=== PATIENT | female | born 1955 | race Caucasian/White ===

== ENCOUNTER 2020-09-01 07:51 | Outpatient (CLI) | payer MEDICARE, SELFPAY ==
--- NOTE | 2020-09-01 07:58 | CT_ITS ---
WS: [id number] LDCT LUNG CANCER SCREENING TECHNIQUE: Noncontrast CT of the chest with coronal and sagittal reformatted images. CLINICAL INFORMATION: lung cancer screening COMPARISON: None. DLP: 59.33 mGy.cm DIvol: 1.[address] scans at [facility] use at least one of these dose optimization techniques: automat ed exposure control; mA and/or kV adjustment per patient size (includes targeted exams where dose is matched to clinical indication); or iterative reconstruction. FINDINGS: Advanced chronic emphysematous changes. Volume loss left lung with fibrotic changes. Fibrosis left majo ng apex. Fibrotic appearing spiculated opacity in the left upper lobe anteriorly measuring 1.9 x 1.2 cm. associated surrounding spiculation. This is indeterminant and recommend further evaluation with P ET/CT. Additional fibrotic-appearing spiculated subpleural opacity left upper lobe along the fissure posteri delon abutting the pleura measuring 1.4 x 1.2 CM. This also could be evaluated with PET/CT. Additional indeterminant small spiculated opacity right upper lobe measuring 5 mm. Traction bronchiectasis left upper and left lower lobes. Aortic calcification. No mediastinal or hilar lymphadenopathy. Mild thoracic kyphosis. CT/CT lung screening [id number] IMPRESSION: Recommend further evaluation with PET/CT LUNG-RADS: 4B-Suspicious FOLLOW UP: PET/CT recommended
== END 2020-09-01 07:52 | disposition home or self-care (01) ==
LOC: RT 07:58 → RAD 08:02
PROVIDERS: PCP Family Medicine; Visit Provider Internal Medicine Pulmonary Disease
DX: Z12.2 Encounter for screening for malignant neoplasm of respiratory organs (principal); F17.210 Nicotine dependence, cigarettes, uncomplicated; I70.0 Atherosclerosis of aorta
CPT/HCPCS: 71271

== ENCOUNTER 2020-09-10 08:35 | Outpatient (CLI) | payer MEDICARE, SELFPAY ==
--- NOTE | 2020-09-10 08:46 | XR_ITS ---
WS: [id number] Bone mineral density performed on a [employer], 09/10/2020 Clinical data: HX OF ADENOCARCINOMA, LUNG Findings: The first 4 lumbar vertebral bodies demonstrated the bone mineral density of 1.498 g/cm2 for a young adult T score of 2.7. Measurement of the left hip reveals a bone mineral density of 0.773 g/cm2 with a young adult T score of -1.9. Measurement of the right hip reveals the bone mineral density of 0.816 g/cm2 for young adult T score of -1.5. XR/XR DEXA axial skeleton* [id number] Impression: 1. The lumbar spine and the right hip show normal bone mineral density. 2. The left hip showed osteopenia.
== END 2020-09-10 08:36 | disposition home or self-care (01) ==
LOC: WPI 08:35
PROVIDERS: PCP Family Medicine; Visit Provider Family Medicine
DX: Z85.118 Personal history of other malignant neoplasm of bronchus and lung (principal); N18.30 Chronic kidney disease, stage 3 unspecified; J44.9 Chronic obstructive pulmonary disease, unspecified; M85.88 Other specified disorders of bone density and structure, other site
CPT/HCPCS: 77080

== ENCOUNTER → 2020-09-17 08:26 | Outpatient (BNVA) | payer MEDICARE, SELFPAY | PROVIDERS: PCP Family Medicine; Visit Provider Internal Medicine Pulmonary Disease | DX: Z01.812 Encounter for preprocedural laboratory examination (principal); Z20.822 Contact with and (suspected) exposure to COVID-19 | CPT/HCPCS: 87635 ==

== ENCOUNTER 2020-09-23 07:39 | Outpatient (CLI) | payer MEDICARE, SELFPAY ==
--- NOTE | 2020-09-23 07:30 | US_ITS ---
WS: [id number] ULTRASOUND-GUIDED RIGHT BREAST BIOPSY HISTORY: N63.0 - Unspecified lump in unspecified breast COMPARISON: 09/23/2020 mammogram and prior PET/CT 09/04/2020 Procedure, risks and complications are explained to the patient. Medications are reviewed. Consent is obtained. The mass in the RIGHT breast is localized with ultrasound. Mass is localized at 3:00, 2 cm from the n ipple. Skin is cleansed with ChloraPrep and anesthetized with 1% buffered lidocaine. Small dermatome is made. Under sterile conditions mass is biopsied with a 14-gauge Achieve needle. Multiple core biop sies are performed. Material placed in formalin and sent to pathology for review. No complications en countered. Breast tissue marker (Bard ultrasound enhanced ribbon): Single. Patient left the radiology suite with no complications. Patient is instructed to return to [facility] with any concerns. Note: Patient refused biopsy of RIGHT axillary lymph node at this time. The lymph nodes are positive on PET/CT. US/[place] [id number] IMPRESSION: 1. Uncomplicated core needle biopsy RIGHT breast mass at 3:00. PATHOLOGY: Invasive ductal carcinoma with lymphovascular invasion. RECOMMENDATION: Follow-up with surgery and oncology.
--- NOTE | 2020-09-23 07:46 | MM_ITS ---
WS: [id number] DIAGNOSTIC BILATERAL DIGITAL MAMMOGRAM WITH CAD HISTORY: RT BREAST MASS, PET/CT positive RIGHT breast mass. No prior mammograms available for review. COMPARISON: None available. TECHNIQUE: Bilateral craniocaudad, mediolateral oblique, and mediolateral views are submitted. Spot c ompression RIGHT CC. Computer aided detection utilized. Breast composition: There are scattered areas of fibroglandular density. Stick a high density mass me asuring 1.7 x 1.5 cm in the inferior medial RIGHT breast at a middle depth. There is also adjacent sk in thickening and volume loss in the RIGHT breast. Benign calcifications in the RIGHT breast. Single mildly prominent lymph node in the RIGHT axilla. MM/[place] [id number] IMPRESSION: BI-RADS: 5-Highly Suggestive of Malignancy FOLLOW UP: Biopsy Recommended Ultrasound-guided biopsy recommended. This biopsy will be performed today.
[2020-09-30 10:37] LABS: Miscellaneous Test See Scanned Lab Rpt
== END 2020-09-23 07:40 | disposition home or self-care (01) ==
LOC: RAD 07:42
PROVIDERS: PCP Family Medicine; Visit Provider Surgery
DX: N63.10 Unspecified lump in the right breast, unspecified quadrant (principal)
CPT/HCPCS: 19083; 77066; 88305; 88361; 88374

== ENCOUNTER 2020-09-28 13:29 | Outpatient (CLI) | payer MEDICARE, SELFPAY ==
--- NOTE | 2020-09-28 17:12 | ONC CON_ITS ---
Dr. Ness New Patient Note Patient: Chioma Willams Unit #: [id number]: 1955 Dicatated By: Ariana Ness M.D.Date of Visit: Sep 28, 2020 Onc MED New Patient/Consult Referring Physician: Dr. SHANIKA NICHOLSON M.D. History of Present Illness: Ms. Chioma Willams, is a 65-year-old female with a history of lung cancer, diagnosed in 2003, at that time she underwent resection as per patient she was not offered any further treatment as it was a early stage disease. Patient also has history of COPD and chronic smoking during her routine follow-up for lung cancer she underwent CT scan of the chest on September 01, 2020 which showed fibrotic appearing spiculated opacity in the left upper lobe anteriorly measuring 1.9 x 1.2 cm and additional fibrotic appearing spiculated subpleural opacity left upper lobe along the fissure posteriorly abutting pleura measuring 1.4 x 1.2 cm and additional indeterminant small spiculated opacity right upper lobe measuring 5 mm, for which CT PET scan was recommended which was done on September 04, 2020 which showed 1.6 cm solid linear nodule in the left upper lobe with SUV of 1.8, most suggestive of benign scarring. But there was incidental finding showing FDG uptake in the central right breast, there is a solid 1.4 x 1.0 cm parenchymal lesion with SUV of 15.9, has a high probability of breast primary. And multiple right axillary lymph nodes FDG positive with SUV up to 9.1 measuring up to 2.5 cm in length. Left breast and axilla unremarkable. Patient underwent mammogram on September 23, 2020 which showed a high density mass measuring 1.7 x 1.5 cm in the inferior medial right breast there is also adjacent skin thickening and volume loss in the right breast. Single mildly prominent lymph node in the right axilla., On September 23, 2020 she underwent ultrasound-guided right breast biopsy which confirmed invasive ductal carcinoma lymphovascular invasion seen, as per discussion with Dr. Nolasco pathologist her tumor is ER/GA negative and HER-2/bola 3+ positive by IHC, FISH is pending, Ki-67 90%. Patient is complaining of discomfort in the lateral areolar area and in the right axilla but denies any overlying skin changes denies any nipple discharge denies any trauma to her breast except recently underwent ultrasound-guided biopsy, denies any fever or chills, denies any signs symptom suggestive of infection. Patient said Tylenol alone is not helping her. Patient denies any new bony pains patient denies any headaches blurred vision double vision, denies any hemoptysis or hematemesis. Denies any chest pain, shortness of breath or palpitation, denies any history of chest pain or cardiac problem. Patient has history of COPD, and still smoking actively. Denies alcohol use. Past Medical History: Ms. Arandas medical history consists of chronic obstructive pulmonary disease and history of lung cancer in 2003. Past Surgical History: Ms. Arandas surgical/procedural history consists of appendectomy, covid vaccine #2 in 2020, covid vaccine #1 in 2020, hysterectomy/bilateral salpingectomy-oophorectomy in 1999, and cholecystectomy in 1977. Medications: Albuterol Sulfate 2 Puff(s) (of 108 (90 base) mcg/act) Aerosol Powder, Breath Activated Inhalation PRN Allergies: No Known Allergies. Social History: Ms. Willams is single. She is a daily smoker who has smoked 0.5 packs/day for 40 years. She drinks daily. She consumes 4 drinks/day 7 days/week. She has indicated exposure to the following products: cigarettes. Family History: Ms. Willams's mother at age 82: congestive heart failure, and BREAST CANCER, and COLON CANCER. Ms. Willams's father at age 71: lung cancer. Review Of Symptoms: Review of Systems is not available for this patient. Vital Signs: Performed on Sep 28, 2020 16:16: 0, 7, 22.71, 1.76 sq.m, 67 in, 97 %, 71 /min, 18 /min, 170/83 mm(hg) (HIGH), 97.2 F (LOW), and 145 lbs (HIGH). Performance Status: 0 - Fully active, able to carry on all predisease activities without restrictions. (ECOG) Physical Examination: ENMT - No mouth sores, no thrush, no jaundice, Right breast shows mild tenderness in retroareolar area but no overlying skin changes, no nipple discharge, palpable mildly tender right axillary lymph node, Respiratory - Poor air entry, mild wheezing bilaterally, Cardiovascular - Regular rate and rhythm of heart, Abdomen - Soft, bowel sounds present, Extremities - No visible edema. Lab/Imaging: Most recent lab results are not available for this patient. Impression: Invasive ductal carcinoma involving right breast per ultrasound guided biopsy done on September 23, 2020, as per pathology prelim report shows ER negative GA negative, HER-2/bola 3+ positive by IHC but FISH confirmation is pending, with very high Ki-67, at 90% CT PET scan done on September 04, 2020 showed 1.4 x 1.0 cm central right breast lesion with SUV of 15.9 and multiple right axillary lymph nodes positive with SUV of .9.1 measuring 2.5 cm in length., Clinical stage T1c, N2A (multiple lymph node fixed to each other), M0, grade 3, HER-2/bola 3+, positive by IHC, ER/GA negative clinical stage IIIa CT PET scan was done to confirm abnormal findings seen on CT scan of chest for follow-up for history of lung cancer which was diagnosed in 2013 at that time she underwent resection only no further treatment was offered because of her early stage disease. History of lung cancer, diagnosed in 2013, as per patient underwent resection no further treatment was offered COPD Chronic smoking Plan: Discussed with patient regarding her disease status and treatment options, as per discussion with pathologist Dr. Sibley, patient has ER negative GA negative disease and her HER-2/bola 3+ positive by IHC but FISH confirmation is pending. Patient has already seen surgeon Dr. Nicholson, patient was referred to oncology for evaluation for neoadjuvant therapy, as per pathology, patient has HER-2/bola positive disease and ER/GA negative diseaseAnd on physical exam palpable right axillary lymph nodes, ?matted to each other, so ,again if HER-2/bola status is confirmed by FISH, will consider neoadjuvant chemotherapy with Herceptin/Cytoxan/Taxotere/Perjeta on the other hand if HER-2/bola status is negative by FISH then Cytoxan/Taxotere or Adriamycin/Cytoxan followed by Taxol, again if echo shows ejection fraction in normal range At this point , we will proceed with echocardiogram, and also request Dr. Nicholson to place Port-A-Cath to facilitate chemotherapy and will obtain report from pathology regarding her HER-2/bola status especially FISH confirmation and patient will return to clinic after echocardiogram/Port-A-Cath placement for further discussion., With CBC and CMP Signed By: Ariana Ness M.D. <<Signature on File>>
== END 2020-09-28 13:30 | disposition home or self-care (01) ==
LOC: ONCMED 13:34
PROVIDERS: PCP Family Medicine; Visit Provider Internal Medicine Hematology & Oncology
DX: C50.811 Malignant neoplasm of overlapping sites of right female breast (principal); Z17.1 Estrogen receptor negative status [ER-]; C77.8 Secondary and unspecified malignant neoplasm of lymph nodes of multiple regions; J44.9 Chronic obstructive pulmonary disease, unspecified; F17.210 Nicotine dependence, cigarettes, uncomplicated; Z85.118 Personal history of other malignant neoplasm of bronchus and lung; Z79.899 Other long term (current) drug therapy; Z92.21 Personal history of antineoplastic chemotherapy
CPT/HCPCS: 99204

== ENCOUNTER → 2020-10-01 10:24 | Outpatient (BNVA) | payer MEDICARE, SELFPAY | PROVIDERS: PCP Family Medicine; Visit Provider Surgery | DX: Z01.812 Encounter for preprocedural laboratory examination (principal); Z20.822 Contact with and (suspected) exposure to COVID-19 | CPT/HCPCS: 87635 ==

== ENCOUNTER 2020-10-05 10:25 | Day surgery (SDC) | payer MEDICARE, SELFPAY ==
[2020-10-04 13:28] VITALS: BMI 22.7
--- NOTE | 2020-10-05 | SCC_ITS ---
Procedure Done: Placement of PowerPort in the left subclavian vein Fluoroscopic guidance and interpretation for placement of catheter 20.2 seconds of fluoroscopic guidance, for a cumulative dose of 3.56 mGy, was provided to Dr. Nicholson by the radiology department. C-arm images of the chest were saved for the patient's permanent record. [facility]
[2020-10-05 10:54] VITALS: BP 170/92; PULSE 80; RESP 18; TEMP 36.2; O2SAT 97
[2020-10-05] MEDS: sodium chloride 0.9% 1,000 ML 30 ML IV (11:10)
--- NOTE | 2020-10-05 11:21 | ANES.PREANE2 ---
Pre-Anesthetic Assessment Pre-Anesthetic Assessment: Height/Weight: Height 1.7 m Weight 65.771 kg Temp Pulse Resp BP Pulse Ox 97.2 F L 80 18 170/92 97 10/05/20 10:54 10/05/20 10:54 10/05/20 10:54 10/05/20 10:54 10/05/20 10:54 Preop Diagnosis: Right breast cancer Proposed Procedure: Operation Date: 10/05/20 12:00 Proposed Procedures p Portacath Placement 66648 C34.12(Not Applicable) - Ilir Nicholson MD Familial anesthetic complications: none Was Beta Maris taken within 24 hours: N/A Was Clonidine taken within 24 hours: N/A Last intake: Intake Last Liquid Date 10/04/20 Last Liquid Time 21:00 Last Solid Date 10/04/20 Last Solid Time 15:00 Social: Social History: Alcohol and Tobacco Comment: 3-4 beers daily Exam: Pre-Anes Outpt Exam: alert, oriented x 3, clear to auscultation bilaterally and regular rate & rhythm Airway: Cervical ROM: WNL MP: 3 Dentition: Full Pulmonary: Pulmonary: COPD Comments: lung cancer 2003 Anesthetic Plan: ASA status: 3 Anesthesia: MAC Risk of > 500 ml blood loss (7ml/kg in children): No Meds/Allergies Current Medications: Current Medications Generic Name Dose Route Start Last Admin Trade Name Freq PRN Reason Stop Dose Admin Sodium Chloride 1,000 mls @ 30 ml s/hr 10/05/20 11:00 10/05/20 11:10 Sodium Chloride 0.9% IV 10/06/20 10:59 30 mls/hr .Q24H MARY Administration PFSH Anesthesia PFSH: Medical History (Updated 09/28/20 @ 12:29 by Geovany Bartlett MD) Chronic obstructive pulmonary disease Lung cancer 2003 Surgical History History of appendectomy History of cholecystectomy History of total abdominal hysterectomy and bilateral salpingo-oophorectomy Family History Father Cancer lung Mother CHF (congestive heart failure) Social History Smoking and tobacco status: current every day smoker cigarettes Packs smoked per day: 0.5 Years cigarettes smoked: 40 [ Other cigarette details: [id number] ] Quit status (tobacco): considering quitting Second hand smoke exposure: No Smoking risk assessment/counseling performed?: Yes Alcohol intake: current Alcohol intake frequency: 3 or more drinks per day Lives independently: Yes Household members: none Marital status: Single service: No Current occupational status: retired Pets and animals: No History of recent travel: No Current gender identity: Female Data Anesthesia Cardiac Studies: No Data to Display
--- NOTE | 2020-10-05 12:06 | SC_ITS ---
WS: [id number] C-ARM RADIOGRAPHS CHEST; 2 IMAGES HISTORY: Intraoperative imaging. COMPARISON: None available. Intraoperative imaging during LEFT subclavian Mediport placement. SC/C-arm FL for CVA [id number] IMPRESSION: Intraoperative imaging during Mediport placement.
--- NOTE | 2020-10-05 12:20 | W.PM.OPSUD ---
Surgery/Procedure H&P Update DATE OF PROCEDURE: October 05, 2020 DATE H&P PERFORMED: 09/21/20 H&P UPDATE INFORMATION: I have reviewed H&P completed within last 30 days, I have examined patient prior to procedure and No changes to prior documentation PREOP DIAGNOSIS: Right breast cancer PLANNED PROCEDURE: Operation Date: 10/05/20 12:00 Proposed Procedures p Portacath Placement 59247 C34.12(Not Applicable) - Ilir Nicholson MD
[2020-10-05] MEDS: lidocaine 1% INJ 20 mL INJECTION (12:39)
[2020-10-05] MEDS: heparin, porcine 1,000 unit/mL INJ 10 mL 6000 UNIT INJECTION (12:58)
[2020-10-05 13:09] VITALS: BP 108/68; PULSE 81; RESP 20; TEMP 36.1; O2SAT 99
[2020-10-05 13:15] VITALS: BP 128/68; PULSE 70; RESP 16; O2SAT 98
[2020-10-05 13:20] VITALS: BP 138/72; PULSE 65; RESP 17; TEMP 36.4; O2SAT 97
--- NOTE | 2020-10-05 14:13 | ANE.PACU2 ---
Inpatient post-anesthesia follow up: Airway intact: Yes Vital signs: Temperature 97.6 F Pulse Rate 65 Respiratory Rate 17 Blood Pressure 138/72 Pulse Oximetry 97 Oxygen Delivery Me thod Room Air Oxygen Flow Rate Fraction of Inspir ed Oxygen Hydration adequate: Yes Nausea and vomiting: No Pain level: 2 Mental status: Baseline
--- NOTE | 2020-10-06 09:45 | PM.OP ---
Operative Report Date of procedure: October 05, 2020 Pre-op Diagnosis: Right breast cancer Post-op diagnosis: same Procedure Done: Placement of PowerPort in the left subclavian vein Fluoroscopic guidance and interpretation for placement of catheter Pathology: none sent Surgeon: Ilir Nicholson Anesthesia: General Condition: stable Disposition: PACU Procedure: The patient was taken to the Operating Room and the chest and neck bilaterally were prepped and draped in a sterile manner after the antibiotic had been administered and shoulder rolls had been placed. A total of 10 mL of 1% lidocaine with 0.5% Marcaine was infiltrated under the clavicle on the left side at the site of the planned entry into the subclavian vein. An introducer needle was then used to access the subclavian vein under the clavicle and after withdrawing blood syringe was removed and a guidewire passed under fluoroscopy into the superior vena cava. The site of the planned port was then marked on the chest and a 15 blade was used to make a 3 cm skin incision this was extended into the subcutaneous tissue using electrocautery and a subcutaneous pocket over the pectoralis fascia was created 2-0 Vicryl suture was used to suture the port to the pectoral fascia in the pocket on 3 sides. The catheter, after having been flushed with hep saline, was attached to the tunneler and a tunnel created between the port site and the subclavian vein entry site. Under fluoroscopy the dilator sheath was passed over the guidewire into the proximal superior vena cava. The inner dilator was removed and the sheath left behind and~ the catheter was introduced through the peel-away sheath with the tip in the superior vena cava. The peel-away sheath was removed. The proximal end of the catheter was cut to the right size and was attached to the port. Using a Wall needle the port was accessed, it withdrew blood easily and flushed easily. A final 5cc of heparin was used to flush the PowerPort. The subcutaneous tissue was approximated using interrupted 3-0 Vicryl sutures and the skin at the introducer site and the port site was closed using subcuticular running 4-0 Monocryl sutures. Surgical glue was applied and the patient was stable throughout the procedure. Fluoroscopic guidance and interpretation was performed for introduction of the guidewire in the left subclavian vein, passage of dilator and placement of catheter tip in the distal superior vena cava.
== END 2020-10-05 14:00 | disposition home or self-care (01) ==
PROVIDERS: PCP Family Medicine; Visit Provider Surgery
PROC: (CPT 36561; principal; 2020-10-05 12:00)
DX: C50.911 Malignant neoplasm of unspecified site of right female breast (principal); J44.9 Chronic obstructive pulmonary disease, unspecified; F17.210 Nicotine dependence, cigarettes, uncomplicated
CPT/HCPCS: 36561; 77001; 96365; C1788; J0690; J1644; J2704; J3010; J3490; J7030

== ENCOUNTER 2020-10-06 14:25 | Outpatient (CLI) | payer MEDICARE, SELFPAY ==
--- NOTE | 2020-10-06 14:33 | USCV_ITS ---
Chioma Willams Age: 65 Gender: F : 1955 Exam Date: 10/06/2020 14:40 Ordering Phys: Ariana Ness MD Technologist: Tracy Brink [place] [facility] [place]: High risk medication BP: 130 / 80 HR: 68 Rhythm: Sinus Technical Quality: Technically difficult study MEASUREMENTS (Male / Female) Normal Values 2D ECHO LV Diastolic Diameter PLAX 3.6 cm 4.2 - 5.9 / 3.9 - 5.3 cm LV Systolic Diameter PLAX 2.5 cm IVS Diastolic Thickness 1.5 cm 0.6 - 1.0 / 0.6 - 0.9 cm IVS Systolic Thickness 1.5 cm LVPW Diastolic Thickness 1.1 cm 0.6 - 1.0 / 0.6 - 0.9 cm LVPW Systolic Thickness 1.5 cm LVOT Diameter 2.0 cm LV Ejection Fraction 2D Teich 58.5 % LV Ejection Fraction MOD 2C 61.3 % LV Ejection Fraction 2C AL 61.0 % LA Diameter 2.6 cm LA Width 2.6 cm LA Height 3.4 cm RA Width 2.8 cm RA Height 2.9 cm Aorta at Sinotubular Diameter 2.5 cm M-MODE Aortic Annulus Diameter 2.7 cm LA Ao Ratio MM 1.0 DOPPLER AV Peak Velocity 109.0 cm/s LVOT Peak Velocity 87.0 cm/s AV Area Cont Eq vti 2.3 cm squared AV Area Cont Eq pk 2.6 cm squared MV Area PHT 5.0 cm squared Mitral E to A Ratio 0.9 MV E' Velocity 41.0 cm/s Mitral E to MV E' Ratio 7.3 Mitral E to LV E' Lateral Ratio 8.8 Mitral E to LV E' Septal Ratio 6.2 TR Peak Velocity 242.3 cm/s TR Peak Gradient 23.5 mmHg TV Peak E Velocity 39.0 cm/s Right Atrial Pressure 3.0 mmHg Pulmonary Artery Systolic Pressu 26.5 mmHg PV Peak Velocity 89.0 cm/s RV Acceleration Time 0.1 s RV Ejection Time 0.3 s RV AcT/ET 0.3 FINDINGS Left Ventricle Normal left ventricular cavity size. Normal left ventricular systolic function. Left ventricular ejection fraction is estimated at 55 %. Although no diagnostic regional wall motion abnormality could be identified, this possibility cannot be completely excluded. Normal diastolic function. Right Ventricle Normal right ventricular size and systolic function, RVSP 31 mmHg. Right Atrium Right atrium not well visualized. Right atrial pressure estimated at 3 mmHg. Left Atrium Left atrium not well visualized. Mitral Valve Mildly thickened mitral valve. No mitral valve stenosis. Trace mitral valve regurgitation. Aortic Valve Structurally normal trileaflet aortic valve. No aortic valve stenosis. No aortic valve regurgitation. Tricuspid Valve Structurally normal tricuspid valve. Pulmonic Valve Pulmonic valve not well visualized. Pericardium No pericardial effusion. Aorta Normal-sized aortic root. Normal-sized inferior vena cava with normal respiratory variation. CONCLUSIONS 1. This is a technically difficult study. Optison declined by patient. 2. Normal left ventricular cavity size and systolic function. Left ventricular ejection fraction is estimated at 55 %. Although no diagnostic regional wall motion abnormality could be identified, this possibility cannot be completely excluded. Normal diastolic function. 3. Normal right ventricular size and systolic function, RVSP 31 mmHg. 4. No prior similar studies to compare. Kristy Marshall MD (Electronically Signed) Final Date: 06 October 2020 17:45 S
== END 2020-10-06 14:26 | disposition home or self-care (01) ==
PROVIDERS: PCP Family Medicine; Visit Provider Internal Medicine Hematology & Oncology
DX: Z79.899 Other long term (current) drug therapy (principal)
CPT/HCPCS: 93306

== ENCOUNTER 2020-10-19 14:49 | Outpatient (CLI) | payer MEDICARE, SELFPAY ==
[2020-10-19 16:13] LABS: Basophils # 0.1 10^3/uL (0.0-0.1); Basophils % 1.2 %; Eosinophils # 0.2 10^3/uL (0.0-0.8); Eosinophils % 1.7 %; Hematocrit 41.2 % (37.0-47.0); Hemoglobin 13.7 g/dL (11.5-15.3); Lymphocytes # 2.8 10^3/uL (0.8-4.8); Lymphocytes % 32.1 %; Mean Corpuscular HGB Conc 33.3 g/dL (30.0-36.0); Mean Corpuscular Hemoglobin 32.9 pg (28.0-34.0); Mean Corpuscular Volume 98.8 fl (81-99); Mean Platelet Volume 11.2 fL (7.4-10.4); Monocytes # 0.8 10^3/uL (0.2-0.9); Monocytes % 8.8 %; Neutrophils # 4.88 10^3/uL (1.8-7.7); Neutrophils % 55.4 %; Nucleated Red Blood Cells % 0 %; Platelet Count 219 10^3/cmm (130-400); Red Blood Count 4.17 10^6/uL (4.1-5.3); Red Cell Distribution Width 13.1 % (12.1-15.1); White Blood Count 8.8 10^3/uL (4.0-10.0)
[2020-10-19 16:27] LABS: Alanine Aminotransferase 28 U/L (0-33); Alkaline Phosphatase 53 IU/L (35-105); Anion Gap 19.7 (5-19); Aspartate Amino Transferase 27 U/L (0-32); Blood Urea Nitrogen 5 mg/dL (8-23); Calcium 9.1 mg/dL (8.5-10.5); Carbon Dioxide 21 mmol/L (22-29); Chloride 99 mmol/L (98-107); Globulin 2.6 g/dL (1.3-4.6); Glomerular Filtration Rate 160.2 mL/min (90-130); Glucose 82 mg/dL (65-115); Osmolality Calculated 278 mOsm/kg (285-295); Potassium 3.7 mmol/L (3.5-5.1); Sodium 136 mmol/L (136-145); Total Bilirubin 0.6 mg/dL (0.15-1.2); Total Protein 6.6 g/dL (6.6-8.7)
== END 2020-10-19 14:50 | disposition home or self-care (01) ==
LOC: ONCMED 14:51
PROVIDERS: PCP Family Medicine; Visit Provider Internal Medicine Hematology & Oncology
DX: C50.911 Malignant neoplasm of unspecified site of right female breast (principal); Z17.1 Estrogen receptor negative status [ER-]; Z79.899 Other long term (current) drug therapy
CPT/HCPCS: 36415; 80053; 85025

== ENCOUNTER 2020-10-20 08:25 | Outpatient (CLI) | payer MEDICARE, SELFPAY ==
--- NOTE | 2020-10-21 13:58 | ONC FU_ITS ---
Dr. Ness follow up note Patient: Chioma Willams Unit #: [id number]: 1955 Dicatated By: Ariana Ness M.D.Date of Visit:Oct 20, 2020 Onc Med Follow-up/Prog Note History of Present Illness: Ms. Chioma Willams, is a 65-year-old female with a history of lung cancer, diagnosed in 2003, at that time she underwent resection as per patient she was not offered any further treatment as it was a early stage disease. Patient also has history of COPD and chronic smoking during her routine follow-up for lung cancer she underwent CT scan of the chest on September 01, 2020 which showed fibrotic appearing spiculated opacity in the left upper lobe anteriorly measuring 1.9 x 1.2 cm and additional fibrotic appearing spiculated subpleural opacity left upper lobe along the fissure posteriorly abutting pleura measuring 1.4 x 1.2 cm and additional indeterminant small spiculated opacity right upper lobe measuring 5 mm, for which CT PET scan was recommended which was done on September 04, 2020 which showed 1.6 cm solid linear nodule in the left upper lobe with SUV of 1.8, most suggestive of benign scarring. But there was incidental finding showing FDG uptake in the central right breast, there is a solid 1.4 x 1.0 cm parenchymal lesion with SUV of 15.9, has a high probability of breast primary. And multiple right axillary lymph nodes FDG positive with SUV up to 9.1 measuring up to 2.5 cm in length. Left breast and axilla unremarkable. Patient underwent mammogram on September 23, 2020 which showed a high density mass measuring 1.7 x 1.5 cm in the inferior medial right breast there is also adjacent skin thickening and volume loss in the right breast. Single mildly prominent lymph node in the right axilla., On September 23, 2020 she underwent ultrasound-guided right breast biopsy which confirmed invasive ductal carcinoma lymphovascular invasion seen, as per discussion with Dr. Nolasco pathologist her tumor is ER/CA negative and HER-2/bola 3+ positive by IHC, FISH Confirmed it, Ki-67 90%. Patient is complaining of discomfort in the lateral areolar area and in the right axilla but denies any overlying skin changes denies any nipple discharge denies any trauma to her breast except recently underwent ultrasound-guided biopsy, denies any fever or chills, denies any signs symptom suggestive of infection. Patient said Tylenol alone is not helping her. Patient denies any new bony pains patient denies any headaches blurred vision double vision, denies any hemoptysis or hematemesis. Denies any chest pain, shortness of breath or palpitation, denies any history of chest pain or cardiac problem. Patient has history of COPD, and still smoking actively. Denies alcohol use.Came for follow-up, denies any specific complaints, no fever chills, no nausea or vomiting, no diarrhea or constipation, patient has already Port-A-Cath placement and echocardiogram done, as per discussion with pathology this morning, she has ER/CA negative HER-2/bola positive disease which is also confirmed with FISH. Medications: Albuterol Sulfate 2 Puff(s) (of 108 (90 base) mcg/act) Aerosol Powder, Breath Activated Inhalation PRN Allergies: No Known Allergies. Review of Systems: Review of Systems is not available for this patient. Vital Signs: Performed on Oct 20, 2020 08:41 Height - 67.00 in Weight - 146.2 lbs (HIGH) BSA - 1.77 sq.m BMI - 22.90 Temperature - 98.4 F Pulse - 75 /min Respiration - 18 /min BP - 178/92 mm(hg) (HIGH) O2 Sat - 98 % Pain - 0 Fatigue - 0 Performance Status: 0 - Fully active, able to carry on all predisease activities without restrictions. (ECOG) Physical Examination: Respiratory - Lungs are clear to auscultation, Cardiovascular - Regular rate and rhythm of heart, Gastrointestinal - Soft, bowel sounds present, Extremities - No visible edema, no rash. Lab/Imaging: Most recent lab results are not available for this patient. Impression: Invasive ductal carcinoma involving right breast per ultrasound guided biopsy done on September 23, 2020, as per pathology report shows ER negative CA negative, HER-2/bola 3+ positive by IHC , FISH Also confirmed, with very high Ki-67, at 90% CT PET scan done on September 04, 2020 showed 1.4 x 1.0 cm central right breast lesion with SUV of 15.9 and multiple right axillary lymph nodes positive with SUV of 2.9.1 measuring 2.[address] CT PET scan was done to confirm abnormal findings seen on CT scan of chest for follow-up for history of lung cancer which was diagnosed in 2013 at that time she underwent resection only no further treatment was offered because of her early stage disease. History of lung cancer, diagnosed in 2013, as per patient underwent resection no further treatment was offered COPD Chronic smoking Plan: Discussed with patient regarding her labs white blood count 8.8 hemoglobin 13.7 hematocrit 41.2 platelets 219,000 CMP within normal limits, echocardiogram done on October 19, 2020 showed ejection fraction 55%, no diagnostic regional wall motion abnormality. Clinically, patient is doing well, her molecular profiling confirmed her breast cancer is HER-2/bola positive, ER/CA negative and her echocardiogram shows ejection fraction normal range at 55%, patient is already Port-A-Cath placement so at this point we will consider neoadjuvant chemotherapy, based on NCCN guidelines, being ER/CA negative and HER-2/bola positive, will consider Herceptin 6 mg/kg, Perjeta 420 mg IV, carboplatin AUC 6 and Taxotere 75 mg per metered square q. 3 weeks x 6,,Followed by total year-long Herceptin/Perjeta will also consider Neulasta to prevent chemotherapy-induced neutropenia/leukopenia and to maintain chemotherapy schedule. If patient could not tolerate carboplatin, will switch her to Cytoxan. All the side effect possible benefits associated with neoadjuvant chemotherapy including but not limited to bone marrow suppression, nausea vomiting, peripheral neuropathy, thrombocytopenia especially with carboplatin, cardiac toxicity especially with Herceptin and Perjeta, hair loss, patient and her sister expressed full understanding and accepted the treatment, we will obtain approval from her insurance prior to the treatment and also consider chemotherapy nurse teaching. Patient return to clinic 1 week after initiation of chemotherapy with Herceptin/Perjeta/carboplatin/Taxotere, with CBC CMP. Signed By: Ariana Ness M.D. <<Signature on File>>
== END 2020-10-20 08:26 | disposition home or self-care (01) ==
PROVIDERS: PCP Family Medicine; Visit Provider Internal Medicine Hematology & Oncology
DX: C50.311 Malignant neoplasm of lower-inner quadrant of right female breast (principal); Z17.1 Estrogen receptor negative status [ER-]; J44.9 Chronic obstructive pulmonary disease, unspecified; Z85.118 Personal history of other malignant neoplasm of bronchus and lung; F17.210 Nicotine dependence, cigarettes, uncomplicated; Z79.899 Other long term (current) drug therapy
CPT/HCPCS: 99214

== ENCOUNTER 2020-11-01 09:25 | Outpatient (CLI) | payer MEDICARE, SELFPAY ==
[2020-11-01 10:17] LABS: Basophils % 0.1 %; Hematocrit 41.5 % (37.0-47.0); Hemoglobin 14.4 g/dL (11.5-15.3); Lymphocytes # 1.7 10^3/uL (0.8-4.8); Lymphocytes % 7.6 %; Mean Corpuscular HGB Conc 34.7 g/dL (30.0-36.0); Mean Corpuscular Hemoglobin 33.3 pg (28.0-34.0); Mean Corpuscular Volume 95.8 fl (81-99); Monocytes # 1.3 10^3/uL (0.2-0.9); Monocytes % 5.9 %; Neutrophils # 18.65 10^3/uL (1.8-7.7); Neutrophils % 85.5 %; Nucleated Red Blood Cells % 0 %; Platelet Count 247 10^3/cmm (130-400); Red Blood Count 4.33 10^6/uL (4.1-5.3); Red Cell Distribution Width 12.7 % (12.1-15.1); White Blood Count 21.8 10^3/uL (4.0-10.0)
[2020-11-01 11:17] LABS: Alanine Aminotransferase 35 U/L (0-33); Albumin Level 4.3 g/dL (3.5-5.2); Alkaline Phosphatase 57 IU/L (35-105); Anion Gap 19.3 (5-19); Aspartate Amino Transferase 24 U/L (0-32); Blood Urea Nitrogen 8 mg/dL (8-23); Calcium 9.5 mg/dL (8.5-10.5); Carbon Dioxide 21 mmol/L (22-29); Chloride 92 mmol/L (98-107); Globulin 2.8 g/dL (1.3-4.6); Glomerular Filtration Rate 100.3 mL/min (90-130); Glucose 157 mg/dL (65-115); Osmolality Calculated 268 mOsm/kg (285-295); Potassium 4.3 mmol/L (3.5-5.1); Sodium 128 mmol/L (136-145); Total Bilirubin 0.3 mg/dL (0.15-1.2); Total Protein 7.1 g/dL (6.6-8.7)
[2020-11-01] MEDS: diphenhydrAMINE 50 mg/mL SDV 1mL 25 MG IV (11:46)
[2020-11-01] MEDS: sodium chloride 0.9% 250 ML 75 ML IV (11:46)
[2020-11-01] MEDS: palonosetron 0.25 mg/5 mL SDV IV (11:48)
[2020-11-01] MEDS: acetaminophen 325 mg Tablet 650 MG PO (11:50)
[2020-11-01] MEDS: famotidine 20 mg Tablet PO (11:50)
[2020-11-01] MEDS: fosaprepitant 150 MG in sodium chloride 0.9% 150 ML 300 MG IV (12:05)
== END 2020-11-01 09:26 | disposition home or self-care (01) ==
LOC: ONCMED 09:26
PROVIDERS: PCP Family Medicine; Visit Provider Internal Medicine Hematology & Oncology
DX: Z51.11 Encounter for antineoplastic chemotherapy (principal); C50.811 Malignant neoplasm of overlapping sites of right female breast; Z17.1 Estrogen receptor negative status [ER-]; J44.9 Chronic obstructive pulmonary disease, unspecified; F17.210 Nicotine dependence, cigarettes, uncomplicated; Z79.899 Other long term (current) drug therapy
CPT/HCPCS: 80053; 85025; 96367; 96375; 96413; 96417; J1100; J1200; J1453; J2469; J7050; J9045; J9171; J9306; J9355

== ENCOUNTER 2020-11-09 06:32 | Outpatient (CLI) | payer MEDICARE, SELFPAY ==
[2020-11-09 13:08] LABS: Basophils % 0.8 %; Eosinophils % 0.8 %; Hemoglobin 14.2 g/dL (11.5-15.3); Lymphocytes # 0.7 10^3/uL (0.8-4.8); Lymphocytes % 60.5 %; Mean Corpuscular HGB Conc 35.5 g/dL (30.0-36.0); Mean Corpuscular Hemoglobin 32.7 pg (28.0-34.0); Mean Corpuscular Volume 92.2 fl (81-99); Monocytes # 0.4 10^3/uL (0.2-0.9); Monocytes % 35.3 %; Neutrophils % 2.6 %; Nucleated Red Blood Cells % 0 %; Platelet Count 106 10^3/cmm (130-400); Red Blood Count 4.34 10^6/uL (4.1-5.3); Red Cell Distribution Width 11.5 % (12.1-15.1); White Blood Count 1.2 10^3/uL (4.0-10.0)
[2020-11-09 13:38] LABS: Alanine Aminotransferase 50 U/L (0-33); Alkaline Phosphatase 57 IU/L (35-105); Anion Gap 15.5 (5-19); Aspartate Amino Transferase 20 U/L (0-32); Blood Urea Nitrogen 13 mg/dL (8-23); Calcium 9.5 mg/dL (8.5-10.5); Carbon Dioxide 23 mmol/L (22-29); Chloride 88 mmol/L (98-107); Globulin 3.1 g/dL (1.3-4.6); Glucose 118 mg/dL (65-115); Osmolality Calculated 257 mOsm/kg (285-295); Potassium 3.5 mmol/L (3.5-5.1); Sodium 123 mmol/L (136-145); Total Bilirubin 0.5 mg/dL (0.15-1.2); Total Protein 7.1 g/dL (6.6-8.7)
[2020-11-09 13:46] LABS: Neutrophils # 0.03 10^3/uL (1.8-7.7)
[2020-11-09 13:47] LABS: Slide Review Slide Review Perform
--- NOTE | 2020-11-09 14:48 | ONC FU_ITS ---
Dr. Ness follow up note Patient: Chioma Willams Unit #: [id number]: 1955 Dicatated By: Ariana Ness M.D.Date of Visit:Nov 09, 2020 Onc Med Follow-up/Prog Note History of Present Illness: Ms. Chioma Willams, is a 65-year-old female with a history of lung cancer, diagnosed in 2003, at that time she underwent resection as per patient she was not offered any further treatment as it was a early stage disease. Patient also has history of COPD and chronic smoking during her routine follow-up for lung cancer she underwent CT scan of the chest on September 01, 2020 which showed fibrotic appearing spiculated opacity in the left upper lobe anteriorly measuring 1.9 x 1.2 cm and additional fibrotic appearing spiculated subpleural opacity left upper lobe along the fissure posteriorly abutting pleura measuring 1.4 x 1.2 cm and additional indeterminant small spiculated opacity right upper lobe measuring 5 mm, for which CT PET scan was recommended which was done on September 04, 2020 which showed 1.6 cm solid linear nodule in the left upper lobe with SUV of 1.8, most suggestive of benign scarring. But there was incidental finding showing FDG uptake in the central right breast, there is a solid 1.4 x 1.0 cm parenchymal lesion with SUV of 15.9, has a high probability of breast primary. And multiple right axillary lymph nodes FDG positive with SUV up to 9.1 measuring up to 2.5 cm in length. Left breast and axilla unremarkable. Patient underwent mammogram on September 23, 2020 which showed a high density mass measuring 1.7 x 1.5 cm in the inferior medial right breast there is also adjacent skin thickening and volume loss in the right breast. Single mildly prominent lymph node in the right axilla., On September 23, 2020 she underwent ultrasound-guided right breast biopsy which confirmed invasive ductal carcinoma lymphovascular invasion seen, as per discussion with Dr. Nolasco pathologist her tumor is ER/CT negative and HER-2/bola 3+ positive by IHC, FISH Confirmed it, Ki-67 90%. Patient is complaining of discomfort in the lateral areolar area and in the right axilla but denies any overlying skin changes denies any nipple discharge denies any trauma to her breast except recently underwent ultrasound-guided biopsy, denies any fever or chills, denies any signs symptom suggestive of infection. Patient said Tylenol alone is not helping her. Patient denies any new bony pains patient denies any headaches blurred vision double vision, denies any hemoptysis or hematemesis. Denies any chest pain, shortness of breath or palpitation, denies any history of chest pain or cardiac problem. Patient has history of COPD, and still smoking actively. Denies alcohol use.Came for follow-up, denies any specific complaints, no fever chills, no nausea or vomiting, no diarrhea or constipation, patient has already Port-A-Cath placement and echocardiogram done, as per discussion with pathology this morning, she has ER/CT negative HER-2/bola positive disease which is also confirmed with FISH. Started on neoadjuvant therapy with carboplatin/Taxotere/Perjeta/Herceptin on November 01, 2020 Came for follow-up, complaining of nausea vomiting diarrhea since Sunday, as per patient she did try food from the restaurant prior to that but denies any fever but feels cold, also complaining of mouth sores and caprice feeling in her mouth. Denies any melena or hematochezia denies any hemoptysis hematemesis denies any dysuria or hematuria patient is here for cycle of chemotherapy with carboplatin/docetaxel/Perjeta/Herceptin on November 01, 2020 Medications: Albuterol Sulfate 2 Puff(s) (of 108 (90 base) mcg/act) Aerosol Powder, Breath Activated Inhalation PRN Allergies: No Known Allergies. Review of Systems: Review of Systems is not available for this patient. Vital Signs: Performed on Nov 09, 2020 13:52 Height - 67.00 in Weight - 139.4 lbs (LOW) BSA - 1.73 sq.m BMI - 21.83 Temperature - 97.0 F (LOW) Pulse - 77 /min Respiration - 18 /min BP - 169/85 mm(hg) (HIGH) O2 Sat - 98 % Pain - 7 Fatigue - 0 Performance Status: 2 - Ambulatory/capable of all self-care, unable to perform any work activities. Up and about more than 50% of waking hours. (ECOG) Physical Examination: [Dry oral mucosa, white plaques consistent with thrush, mild erythema, no mucositis^Respiratory - Lungs are clear to auscultation, Cardiovascular - Regular rate and rhythm of heart, Gastrointestinal - Soft, bowel sounds present, Extremities - No visible edema. Lab/Imaging: Test performed on Nov 01, 2020 09:35 Potassium 4.3 mmol/L BUN 8 mg/dL Creatinine 0.6 mg/dL Cr Clearance (Est) 97.8600 mL/min eGFR 100.3 mL/min Calcium 9.5 mg/dL Protein, Total 7.1 g/dL Albumin 4.3 g/dL Globulin 2.8 g/dL Bilirubin, Total 0.3 mg/dL AST (SGOT) 24 U/L Alkaline Phosphatase 57 IU/L WBC 21.8 10 3/uL RBC 4.33 10 6/uL HGB 14.4 g/dL HCT 41.5 % MCV 95.8 fl MCH 33.3 pg MCHC 34.7 g/dL RDW 12.7 % Platelet Count 247 10 3/cmm MPV 11.0 fL Neutrophils 18.65 10 3/uL Lymphocytes 1.7 10 3/uL Monocytes 1.3 10 3/uL Eosinophils 0.0 10 3/uL Basophils 0.0 10 3/uL Neutrophil % 85.5 % Lymphocyte % 7.6 % Monocyte % 5.9 % Eosinophil % 0.0 % Basophils % 0.1 % NRBC % 0 % Impression: Invasive ductal carcinoma involving right breast per ultrasound guided biopsy done on September 23, 2020, as per pathology report shows ER negative CT negative, HER-2/bola 3+ positive by IHC , FISH Also confirmed, with very high Ki-67, at 90%, Clinical stage IIIa, (T1C, N2, MX, grade 3, ER/CT negative HER-2/bola positive) CT PET scan done on September 04, 2020 showed 1.4 x 1.0 cm central right breast lesion with SUV of 15.9 and multiple right axillary lymph nodes positive with SUV of 2.9.1 measuring 2.5 cm in length., CT PET scan was done to confirm abnormal findings seen on CT scan of chest for follow-up for history of lung cancer which was diagnosed in 2013 at that time she underwent resection only no further treatment was offered because of her early stage disease. History of lung cancer, diagnosed in 2013, as per patient underwent resection no further treatment was offered COPD Chronic smoking Plan: Discussed with patient regarding her labs white blood count 1.2 hemoglobin 14.2 hematocrit 40 platelets 106,000 ANC 30, partial CMP showed creatinine normal LFTs within normal range Clinically, patient is in moderate to severe distress due to persistent nausea vomiting diarrhea, most likely food poisoning causing severe gastroenteritis especially in the setting of severe neutropenia, at this point, will send her to the emergency room for evaluation and possible inpatient care, case was discussed with ER physician and requested panculture, hydration, supportive care and broad-spectrum antibiotic, reverse isolation and Neupogen support. Patient return to clinic in a week with CBC CMP and will also consider Neulasta after next cycle of chemotherapy to prevent chemotherapy-induced neutropenia Signed By: Ariana Ness M.D. <<Signature on File>>
[2020-11-09 21:58] VITALS: BP 134/84; PULSE 84; RESP 17; TEMP 36.7; O2SAT 97
--- NOTE | 2020-11-09 23:28 | PM.HP ---
Providers/Chief Complaint Admitting Physician: Carole Brown MD Primary Care Provider: Sukhjinder Allen MD Chief Complaint: breast cancer History of Present Illness Chioma Willams is a 65 year old female recently diagnosed with breast cancer, started neoadjuvant chemotherapy with carboplatin/Taxotere/Perjeta/Herceptin on November 01, 2020. Three days after chemotherapy she started experiencing nausea and vomiting, average 2 episodes of vomiting per day, multiple episodes of diarrhea with generalized soreness in the abdomen. Also c/o odynophagia and mouth ulcers. no fever. No URI symptoms. No cough, chest pain, dyspnea, palpitations. No blood in stools. No hematemesis. no sick contacts. Had egg drop soup from restaurant on 11/05, however symptoms have remained unchanged overall. ANC today noted to be <500. CT abdomen/pelvis without acute abnormalities. She is vaccinated for COVID 19. Review of Systems General: Reports: 10 or more systems reviewed and unremarkable except in HPI and below Const: Denies: fever(s), chills or body aches Eyes: Denies: change in vision, blurry vision or photophobia ENMT: Reports: hoarseness; Denies: throat pain, enlarged tonsils, odynophagia or nasal congestion Card: Denies: chest pain, palpitations, irregular heart rhythm, edema, swelling of feet/ankles, lightheadedness, pre-syncope, dyspnea on exertion or orthopnea Resp: Denies: dyspnea, productive cough, non-productive cough, wheezing, stridor, pain on inspiration, change in phlegm color, hemoptysis or chest congestion GI: Denies: abdominal pain, nausea, vomiting, hematemesis, coffee ground emesis, dysphagia, heartburn, diarrhea, constipation, GI cramping, change in stool character, hematochezia or melena : Denies: flank pain, difficulty voiding, dysuria, urinary frequency, urinary urgency, urinary hesitancy or hematuria Musc: Denies: neck pain, back pain, extremity pain, joint swelling, joint warmth or deformity Neuro: Denies: headache(s), numbness in extremities, weakness in extremities, sensory changes, difficulty walking, frequent falls, dizziness, vertigo, behavioral changes, Slurred speech present or seizure-like activity Psych: Denies: anxiety, depression, suicidal ideation or homicidal ideation Endo: Denies: polyuria, polydipsia, tired all the time, cold intolerance or hot flashes Demario/Lymph: Denies: easy bruising or easy bleeding Medications/Allergies Home Medications Medication Instructions Recorded Confirmed Last Taken Type albuterol sulfate 90 mcg/actuation 2 puff INHALATION Q6H PRN 08/06/20 11/09/20 Unknown History aerosol inhaler tiotropium bromide 2.5 2 puff INHALATION DAILY #4 g 09/27/20 11/09/20 11/09/20 Rx mcg/actuation mist for inhalation dexamethasone 8 mg PO BID 11/09/20 11/09/20 Unknown History escitalopram oxalate [Lexapro] 10 mg PO DAILY 11/09/20 11/09/20 11/09/20 History Allergies Allergy/AdvReac Type Severity Reaction Status Date / Time No Known Allergies Allergy Verified 09/27/20 13:30 PFSH Acute PFSH: Medical History Breast cancer, right Chronic obstructive pulmonary disease Lung cancer 2003 Surgical History History of appendectomy History of cholecystectomy History of total abdominal hysterectomy and bilateral salpingo-oophorectomy Port-A-Cath in place (10/05/20) Family History Father Cancer lung Mother CHF (congestive heart failure) Social History Smoking and tobacco status: current every day smoker cigarettes Packs smoked per day: 0.5 Years cigarettes smoked: 40 [ Other cigarette details: [id number] ] Quit status (tobacco): considering quitting Second hand smoke exposure: No Smoking risk assessment/counseling performed?: Yes Alcohol intake: current Alcohol intake frequency: 3 or more drinks per day Lives independently: Yes Household members: none Marital status: Single service: No Current occupational status: retired Pets and animals: No History of recent travel: No Current gender identity: Female Vitals/I&O/Wt Last Vital Signs Temp 98.0 F 11/09/20 21:58 Pulse 84 11/09/20 21:58 Resp 17 11/09/20 21:58 BP 134/84 09/21/21 21:58 Pulse Ox 97 11/09/20 21:58 Physical Exam Narrative: EXAM NARRATIVE: General: No acute distress, AO x3, appears dehydrated HEENT: PERRLA, pupils bilaterally equal and reactive, pallors not present, mucositis with superficial ulcerations affecting hard and soft palate Chest: Normal vesicular breath sounds, no added sounds, equal good air entry bilaterally CVS: S1-S2 regular, no murmurs, no tachycardia, no gallops, no rubs Abdomen: Soft, nontender, no organomegaly, bowel sounds present Neuro: No focal deficits, no facial deformity, AO x3, power 5/5 in all limbs Data : 11/09/20 12:43 11/09/20 12:43 Other Labs: Laboratory Results WBC 1.2 10^3/uL (4.0-10.0) L 11/09/20 12:43 RBC 4.34 10^6/uL (4.1-5.3) 11/09/20 12:43 Hgb 14.2 g/dL (11.5-15.3) 11/09/20 12:43 Hct 40.0 % (37.0-47.0) 11/09/20 12:43 MCV 92.2 fl (81-99) 11/09/20 12:43 MCH 32.7 pg (28.0-34.0) 11/09/20 12:43 MCHC 35.5 g/dL (30.0-36.0) 11/09/20 12:43 RDW 11.5 % (12.1-15.1) L 11/09/20 12:43 Plt Count 106 10^3/cmm (130-400) L 11/09/20 12:43 MPV 12.0 fL (7.4-10.4) H 11/09/20 12:43 Neut % (Auto) 2.6 % 11/09/20 12:43 Lymph % (Auto) 60.5 % 11/09/20 12:43 Anson % (Auto) 35.3 % 11/09/20 12:43 Eos % (Auto) 0.8 % 11/09/20 12:43 Baso % (Auto) 0.8 % 11/09/20 12:43 Neut # (Auto) 0.03 10^3/uL (1.8-7.7) L* 11/09/20 12:43 Lymph # (Auto) 0.7 10^3/uL (0.8-4.8) L 11/09/20 12:43 Anson # (Auto) 0.4 10^3/uL (0.2-0.9) 11/09/20 12:43 Eos # (Auto) 0.0 10^3/uL (0.0-0.8) 11/09/20 12:43 Baso # (Auto) 0.0 10^3/uL (0.0-0.1) 11/09/20 12:43 Nucleated RBC % (auto) 0 % 11/09/20 12:43 Nucleated RBCs # 0.0 /100WBC 11/09/20 12:43 Sodium 123 mmol/L (136-145) L 11/09/20 12:43 Potassium 3.5 mmol/L (3.5-5.1) 11/09/20 12:43 Chloride 88 mmol/L (98-107) L 11/09/20 12:43 Carbon Dioxide 23 mmol/L (22-29) 11/09/20 12:43 Anion Gap 15.5 (5-19) 11/09/20 12:43 BUN 13 mg/dL (8-23) 11/09/20 12:43 Creatinine 0.8 mg/dL (0.5-0.9) 11/09/20 12:43 GFR Calculation 72.0 mL/min (90-130) L 11/09/20 12:43 Glucose 118 mg/dL (65-115) H 11/09/20 12:43 Calculated Osmolality 257 mOsm/kg (285-295) L 11/09/20 12:43 Calcium 9.5 mg/dL (8.5-10.5) 11/09/20 12:43 Total Bilirubin 0.5 mg/dL (0.15-1.2) 11/09/20 12:43 AST 20 U/L (0-32) 11/09/20 12:43 ALT 50 U/L (0-33) H 11/09/20 12:43 Alkaline Phosphatase 57 IU/L (35-105) 11/09/20 12:43 Total Protein 7.1 g/dL (6.6-8.7) 11/09/20 12:43 Albumin 4.0 g/dL (3.5-5.2) 11/09/20 12:43 Globulin 3.1 g/dL (1.3-4.6) 11/09/20 12:43 Ur Random Potassium 24 mmol/L 11/09/20 16:10 Ur Random Chloride 11 mmol/L 11/09/20 16:10 CT Abd/Pel: I personally reviewed and interpreted this imaging study as follows: Radiologist's impression: CT/CT abdomen pelvis w con* [id number] IMPRESSION: 1. No acute findings. 2. Incidental findings above. A&P Assessment and plan (1) Intractable nausea and vomiting: May be related to recent chemotherapy vs gastroenteritis Supportive management currently with IVF NS @75 cc/hr patient appears dehydrated prn zofran, compazine for nausea control clear liquid diet for now, to advance as tolerated CT abdomen/pelvis without acute abnormalities Status: Acute (2) Mucositis (ulcerative) due to antineoplastic therapy: mucositis, likely related to chemotherapy and neutropenia Alternate differentials include acute viral illness such as enteroviruses No eveidence of thrush at this time No perioral ulcerations or vesicular lesions concerning for HSV Supportive management, clear liquid diet Magic mouthwash q4h prn monitor for improvement with recovering counts Status: Acute (3) Neutropenia: likely related to recent chemo Discuss with oncology regarding Neulasta in am Status: Acute Qualifiers: Neutropenia type: secondary to cancer chemotherapy Qualified Code(s): D70.1 - Agranulocytosis secondary to cancer chemotherapy; T45.1X5A - Adverse effect of antineoplastic and immunosuppressive drugs, initial encounter (4) Hyponatremia: likely secondary to dehydration check urine lytes, serum osmolality IVF as above, clinically appears dehydrated Status: Acute Additional A&P Information ppx: Lovenox for DVT ppx, Levaquin 500mg po daily until ANC >500 Full code Attestations Medical Necessity Statement*: observation admission, anticipate <2midnight for above defined care Coding Level of Care Code Acute Information Technology Advisor for Chg Fwd Diagnoses Intractable nausea and vomiting R11.2 Mucositis (ulcerative) due to antineoplastic therapy K12.31 Neutropenia D70.1; T45.1X5A Neutropenia type: secondary to cancer chemotherapy Hyponatremia E87.1
[2020-11-09] MEDS: enoxaparin 40 mg/0.4 mL Syringe SUBCUT (23:39)
[2020-11-09] MEDS: pantoprazole DR 40 mg Tablet PO (23:40)
[2020-11-09] MEDS: sodium chloride 0.9% 1,000 ML 75 ML IV (23:41)
[2020-11-10] VITALS: BP 155/83; PULSE 71; RESP 17; TEMP 36.6; O2SAT 98
[2020-11-10 03:42] VITALS: PULSE 88; O2SAT 98
[2020-11-10 04:00] VITALS: BP 132/79; PULSE 85; RESP 15; TEMP 36.3; O2SAT 99
== END 2020-11-09 18:25 | disposition home or self-care (01) ==
LOC: ONCMED 15:50 → MEDSURG 22:03
PROVIDERS: PCP Family Medicine; Visit Provider Internal Medicine Hematology & Oncology
DX: C50.811 Malignant neoplasm of overlapping sites of right female breast (principal); Z17.1 Estrogen receptor negative status [ER-]; Z85.118 Personal history of other malignant neoplasm of bronchus and lung; J44.9 Chronic obstructive pulmonary disease, unspecified; F17.200 Nicotine dependence, unspecified, uncomplicated; Z79.899 Other long term (current) drug therapy; R11.2 Nausea with vomiting, unspecified; D70.9 Neutropenia, unspecified
CPT/HCPCS: 80053; 82436; 84133; 84300; 85025; 96361; 96365; 96372; 99214; J1650; J7030

== ENCOUNTER 2020-11-09 14:19 | Observation (INO) | payer MEDICARE, SELFPAY ==
[2020-11-09] VITALS (48 sets, daily range): BP systolic 128–178; BP diastolic 72–102; PULSE 76–84; RESP 16–18; TEMP 36.7–36.9; O2SAT 96–99
--- NOTE | 2020-11-09 15:37 | XRR_ITS ---
PROCEDURE INFORMATION: Exam: XR Chest Exam date and time: 11/09/2020 3:37 PM Age: 65 years old Clinical indication: Prior surgery; Surgery type: Resection lung; Patient HX: Low wbc count, HX of lung CA + breast ca/stage 3, n/v/d; Additional info: Dyspnea/cough TECHNIQUE: Imaging protocol: XR of the chest. Views: 1 view. COMPARISON: CT lung screening [id number] 09/01/2020 8:05 AM FINDINGS: Tubes, catheters and devices: Left-sided Port-A-Cath. Lungs: Left costophrenic angle scarring again seen. Emphysematous changes suspected. Pleural spaces: Unremarkable. No pleural effusion. No pneumothorax. Heart/Mediastinum: Unremarkable. No cardiomegaly. Bones/joints: Unremarkable. XR/XR chest 1V portable [id number] IMPRESSION: 1. Negative for airspace infiltrate. 2. Left-sided Port-A-Cath. 3. Left costophrenic angle scarring again seen. 4. Emphysematous changes suspected.
--- NOTE | 2020-11-09 15:37 | ECG_ITS ---
[facility] Test Date: 2020-11-09 Pat Name: Chioma Willams Department: Room: Gender: Female [employer] P[employer]: : 1955 Requested By: Tylor Gutierrez Order Number: [id number] Yee MD: Ellie Zelaya M.D. Measurements Intervals [place] Rate: 73 P: 106 CO: 165 QRS: 72 QRSD: 102 T: 56 QT: 427 QTc: 472 Interpretive Statements SINUS RHYTHM WITH OCCASIONAL VENTRICULAR PREMATURE COMPLEXES MODERATE T-WAVE ABNORMALITY, CONSIDER ANTERIOR ISCHEMIA [-0.1+ mV T-WAVE IN V3/V4] No previous ECG available for comparison Electronically Signed On 11-10-2020 23:25:36 CDT by Ellie Zelaya M.D. [email or web address] [email or web address] mississippi medical [email or web address] Shop [email or web address] rivers[email or web address]/store/[id number]
[2020-11-09 16:18] LABS: Add Urine Microscopic? NO; Charge for UA Resulting for Rev
[2020-11-09] MEDS: sodium chloride 0.9% 1,000 ML 999 ML IV (16:20)
[2020-11-09] MEDS: ondansetron 2 mg/ML SDV 2 mL 4 MG IVP (16:20)
[2020-11-09 16:21] LABS: Basophils % 1.5 %; Hemoglobin 13.5 g/dL (11.5-15.3); Lymphocytes # 0.3 10^3/uL (0.8-4.8); Mean Corpuscular HGB Conc 35.5 g/dL (30.0-36.0); Mean Corpuscular Hemoglobin 32.8 pg (28.0-34.0); Mean Corpuscular Volume 92.5 fl (81-99); Mean Platelet Volume 11.1 fL (7.4-10.4); Monocytes # 0.3 10^3/uL (0.2-0.9); Monocytes % 45.6 %; Neutrophils % 2.9 %; Nucleated Red Blood Cells % 0 %; Platelet Count 106 10^3/cmm (130-400); Red Blood Count 4.11 10^6/uL (4.1-5.3); Red Cell Distribution Width 11.6 % (12.1-15.1)
--- NOTE | 2020-11-09 16:21 | CTR_ITS ---
PROCEDURE INFORMATION: Exam: CT Abdomen And Pelvis With Contrast Exam date and time: 11/09/2020 4:21 PM Age: 65 years old Clinical indication: Nausea and vomiting and other: Diarrhea; Abdominal pain; Prior surgery; Surgery type: Appy, hyst, gb; Additional info: Abd pain TECHNIQUE: Imaging protocol: Computed tomography of the abdomen and pelvis with contrast. Radiation optimization: All CT scans at this facility use at least one of these dose optimization techniques: automated exposure control; mA and/or kV adjustment per patient size (includes targeted exams where dose is matched to clinical indication); or iterative reconstruction. Contrast material: OMNI 300; Contrast volume: 95 ml; Contrast route: INTRAVENOUS (IV); COMPARISON: CT lung screening [id number] 09/01/2020 8:05 AM RADIATION DOSE METRICS: Total DLP (mGy-cm): 1024.6 FINDINGS: Lungs: Lung bases are clear. Mediastinal space: There is a small sliding-type hiatal hernia. Liver: The liver is normal. Gallbladder and bile ducts: The gallbladder is absent. Pancreas: The pancreas is unremarkable. Spleen: The spleen is unremarkable. Adrenal glands: The adrenal glands are unremarkable. Kidneys and ureters: The right kidney and ureter are unremarkable. 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 The left kidney is absent. There is no hydronephrosis or stones. Stomach and bowel: The stomach is unremarkable. The small bowel is nondilated. The colon is unremarkable. Appendix: The appendix is not visible. Intraperitoneal space: There is no free air or significant intraperitoneal free fluid. Vasculature: There is severe aortic atherosclerotic disease. The portal, splenic and superior mesenteric veins are patent. Lymph nodes: There is no lymphadenopathy in the retroperitoneum, mesentery, pelvis or inguinal regions. Urinary bladder: The urinary bladder is unremarkable. Reproductive: The uterus is absent. There is no adnexal mass or large cyst. Bones/joints: There is moderate degenerative disease in the lower lumbar spine. The pelvis and proximal femora are intact. Soft tissues: The abdominal wall is intact. CT/CT abdomen pelvis w con* [id number] IMPRESSION: 1. No acute findings. 2. Incidental findings above. Radiation Dose CTDIVOL = (mGy): DLP = 1024.6 (mGy-cm)
[2020-11-09 16:29] LABS: Bilirubin Urine Neg (Negative); Blood Urine Neg (Negative); Glucose Urine UA Trace (Normal); Ketones Urine 1+ (Negative); Leukocyte Esterase Urine Negative (Negative); Nitrate Urine Negative (Negative); Protein Urine Neg (Negative); Urine Appearance Clear (CLEAR); Urine Color Yellow (Yellow); Urobilinogen Urine Norm (Negative); pH Urine 5 (5-7)
--- NOTE | 2020-11-09 16:35 | W.ED.GENADLT ---
HPI - General Adult General: Chief complaint: General Medical Stated complaint: LOW WBC: SENT BY DR CHATMAN Time Seen by Provider: 11/09/20 15:25 History of Present Illness: HPI narrative: 65-year-old female presents emergency room complaining of nausea vomiting and diarrhea. Patient received cycle of chemo 1 week ago and she is not been feeling well since. In addition to that she is neutropenic, per the notes in the oncology note today although I do not see any results in the lab section of the chart. She complaining of some discomfort in her mouth as well. She has abdominal pain which she mostly relates to repeated vomiting. She denies any hematochezia melena hematemesis coffee-ground emesis denies any shortness of breath or productive cough she has not had any dysuria urgency or frequency. Onset (ago): minute(s) Radiation: non-radiation Severity: moderate Pain Consistency: constant Relieving factors: none Exacerbating factors: none Associated symptoms: Reports decreased appetite, malaise, nausea, vomiting and weakness; Deny chest pain, confusion, cough, diaphoresis, dyspnea, fevers/chills, headache(s), rash, palpitations, seizures, short of breath or syncope Treatments prior to arrival: none Review of Systems Const: Reports: malaise; Denies: diaphoresis ENMT: Denies: throat pain, ear or mastoid pain, nasal discharge or nasal congestion Card: Denies: chest pain, palpitations or syncope Resp: Denies: dyspnea GI: Reports: nausea and vomiting : Denies: flank pain, difficulty voiding, dysuria, urinary frequency or urinary urgency Skin/Breast: Denies: rash Neuro: Denies: headache(s) or confusion [facility] PFSH: Medical History Breast cancer, right Chronic obstructive pulmonary disease Lung cancer 2004 Surgical History History of appendectomy History of cholecystectomy History of total abdominal hysterectomy and bilateral salpingo-oophorectomy Port-A-Cath in place (10/05/20) Family History Father Cancer lung Mother CHF (congestive heart failure) Social History Smoking and tobacco status: current every day smoker cigarettes Packs smoked per day: 0.5 Years cigarettes smoked: 40 [ Other cigarette details: [id number] ] Quit status (tobacco): considering quitting Second hand smoke exposure: No Smoking risk assessment/counseling performed?: Yes Alcohol intake: current Alcohol intake frequency: 3 or more drinks per day Lives independently: Yes Household members: none Marital status: Single service: No Current occupational status: retired Pets and animals: No History of recent travel: No Current gender identity: Female Physical Exam Const: COMMON NORMALS: no acute distress GENERAL APPEARANCE: cooperative and comfortable ORIENTATION/CONSCIOUSNESS: Yes awake, Yes oriented to person, Yes oriented to place and Yes oriented to time HENMT: COMMON NORMALS: normocephalic, atraumatic, hearing grossly normal bilaterally, external ears normal, EAC's normal, TM's normal bilaterally, Normal nasal mucous membranes and turbinates present, moist oral mucous membranes and oropharynx normal HEAD & SCALP: normocephalic and atraumatic NOSE: Normal nasal mucous membranes and turbinates present EXTERNAL EAR: Yes external ears normal EXTERNAL AUDITORY CANAL: EAC's normal TYMPANIC MEMBRANE: TM's normal bilaterally Eye: COMMON NORMALS: Equal, round and reactive pupils present, EOMs intact bilaterally, conjunctivae normal and no scleral icterus CONJUNCTIVA: Yes conjunctivae normal PUPIL: Yes Equal, round and reactive pupils present Neck/C-Spine: COMMON NORMALS: full ROM, no lymphadenopathy, supple and no JVD Lymph: LYMPHATIC: no lymphadenopathy noted and no lymphedema noted Resp: COMMON NORMALS: normal respiratory effort, No retractions, No use of accessory muscles and clear to auscultation bilaterally AUSCULTATION: clear to auscultation bilaterally Cardio: COMMON NORMALS: no JVD, regular rate, regular rhythm and No murmurs present (Cardio) RATE: regular rate RHYTHM: regular rhythm GI: COMMON NORMALS: Soft to palpation and No hepatosplenomegaly present AUSCULTATION: Yes normoactive bowel sounds PALPATION: Yes Soft to palpation, No Tenderness to palpation present (GI), No Guarding due to palpation present (GI) and Yes No hepatosplenomegaly present Extremity: COMMON NORMALS: normal to inspection, capillary refill normal, no clubbing, cyanosis or edema, no calf tenderness and no pedal edema Neuro: SENSORIUM/ORIENTATION: Yes oriented to person, Yes oriented to place and Yes oriented to time Skin: COMMON NORMALS: no rashes or lesions noted GENERAL SKIN EXAM: no rashes or lesions noted Course Vital Signs: Vital signs: Vital Signs Temperature 98.2 F 11/11/20 04:00 Pulse Rate 69 11/11/20 04:00 Respiratory Rate 16 11/11/20 04:00 Blood Pressure 111/64 11/11/20 04:00 Pulse Oximetry 98 11/11/20 04:00 MDM - General Adult MDM Narrative: Medical decision making narrative: Labs imaging and EKG reviewed as on the chart. Patient has protracted nausea and vomiting is not improving with fluids or medication in the emergency room. She is also hyponatremic. Think her diarrhea is secondary to her chemotherapy. She is profoundly neutropenic as well. We will start her on reverse isolation prophylactic antibiotic she has been cultured discussed with hospitalist orders written patient will be admitted will also need Neulasta. Lab Data: Labs: Lab Results 11/09/20 11/09/20 11/09/20 16:07 16:07 16:07 WBC 0.7 10^3/uL L* 10 ^3/uL (4.0-10.0) RBC 4.11 10^6/uL 10^6 /uL (4.1-5.3) Hgb 13.5 g/dL g/dL (11.5-15.3) Hct 38.0 % % (37.0-47.0) MCV 92.5 fl fl (81-99) MCH 32.8 pg pg (28.0-34.0) MCHC 35.5 g/dL g/dL (30.0-36.0) RDW 11.6 % L % (12.1-15.1) Plt Count 106 10^3/cmm L 10 ^3/cmm (130-400) MPV 11.1 fL H fL (7.4-10.4) Neut % (Auto) 2.9 % % Lymph % (Auto) 50.0 % % Banks % (Auto) 45.6 % % Eos % (Auto) 0.0 % % Baso % (Auto) 1.5 % % Neut # (Auto) 0.02 10^3/uL L* 1 0^3/uL (1.8-7.7) Lymph # (Auto) 0.3 10^3/uL L 10^ 3/uL (0.8-4.8) Banks # (Auto) 0.3 10^3/uL 10^3/ uL (0.2-0.9) Eos # (Auto) 0.0 10^3/uL 10^3/ uL (0.0-0.8) Baso # (Auto) 0.0 10^3/uL 10^3/ uL (0.0-0.1) Nucleated RBC % (a uto) 0 % % Nucleated RBCs # 0.0 /100WBC /100W BC Sodium 127 mmol/L L mmol /L (136-145) Potassium 3.8 mmol/L mmol/L (3.5-5.1) Chloride 94 mmol/L L mmol/ L (98-107) Carbon Dioxide 22 mmol/L mmol/L (22-29) Anion Gap 14.8 (5-19) BUN 13 mg/dL mg/dL (8-23) Creatinine 0.6 mg/dL mg/dL (0.5-0.9) GFR Calculation 100.3 mL/min mL/m in (90-130) Glucose 128 mg/dL H mg/dL (65-115) Calculated Osmolal ity 266 mOsm/kg L mOs m/kg (285-295) Lactic Acid 0.7 mmol/L mmol/L (0.5-2.2) Calcium 8.9 mg/dL mg/dL (8.5-10.5) Total Bilirubin 0.4 mg/dL mg/dL (0.15-1.2) AST 15 U/L U/L (0-32) ALT 44 U/L H U/L (0-33) Alkaline Phosphata se 56 IU/L IU/L (35-105) Creatine Kinase 17 U/L L U/L (26-192) Total Protein 6.5 g/dL L g/dL (6.6-8.7) Albumin 3.6 g/dL g/dL (3.5-5.2) Globulin 2.9 g/dL g/dL (1.3-4.6) Lipase 43 U/L U/L (13-60) Urine Color Urine Appearance Urine pH Ur Specific Gravit y Urine Protein Urine Glucose (UA) Urine Ketones Urine Blood Urine Nitrate Urine Bilirubin Urine Urobilinogen Ur Leukocyte Mahi ase Ur Random Sodium Ur Random Potassiu m Ur Random Chloride 11/09/20 11/09/20 16:10 16:10 WBC RBC Hgb Hct MCV MCH MCHC RDW Plt Count MPV Neut % (Auto) Lymph % (Auto) Banks % (Auto) Eos % (Auto) Baso % (Auto) Neut # (Auto) Lymph # (Auto) Banks # (Auto) Eos # (Auto) Baso # (Auto) Nucleated RBC % (a uto) Nucleated RBCs # Sodium Potassium Chloride Carbon Dioxide Anion Gap BUN Creatinine GFR Calculation Glucose Calculated Osmolal ity Lactic Acid Calcium Total Bilirubin AST ALT Alkaline Phosphata se Creatine Kinase Total Protein Albumin Globulin Lipase Urine Color Yellow (Yellow) Urine Appearance Clear (CLEAR) Urine pH 5 (5-7) Ur Specific Gravit y 1.010 (1.005-1.030) Urine Protein Neg (Negative) Urine Glucose (UA) Trace H (Normal) Urine Ketones 1+ H (Negative) Urine Blood Neg (Negative) Urine Nitrate Negative (Negative) Urine Bilirubin Neg (Negative) Urine Urobilinogen Norm mg/dL mg/dL (Negative) Ur Leukocyte Mahi ase Negative (Negative) Ur Random Sodium < 10 mmol/L mmol/ L Ur Random Potassiu m 24 mmol/L mmol/L Ur Random Chloride 11 mmol/L mmol/L Discharge Plan Discharge Patient Disposition: Admitted As Inpatient Admit Provider: Carole Brown Clinical Impression: Intractable nausea and vomiting, Neutropenia, Hyponatremia, Chronic obstructive pulmonary disease, Breast cancer, right, Chemotherapy induced diarrhea Condition: Stable Coding Level of Care Code ED Tank Tender for Chg Fwd Exam Comprehensive
[2020-11-09 16:52] LABS: Alanine Aminotransferase 44 U/L (0-33); Albumin Level 3.6 g/dL (3.5-5.2); Alkaline Phosphatase 56 IU/L (35-105); Anion Gap 14.8 (5-19); Aspartate Amino Transferase 15 U/L (0-32); Blood Urea Nitrogen 13 mg/dL (8-23); Calcium 8.9 mg/dL (8.5-10.5); Carbon Dioxide 22 mmol/L (22-29); Chloride 94 mmol/L (98-107); Creatine Phosphokinase 17 U/L (26-192); Globulin 2.9 g/dL (1.3-4.6); Glomerular Filtration Rate 100.3 mL/min (90-130); Glucose 128 mg/dL (65-115); Lipase 43 U/L (13-60); Osmolality Calculated 266 mOsm/kg (285-295); Potassium 3.8 mmol/L (3.5-5.1); Sodium 127 mmol/L (136-145); Total Bilirubin 0.4 mg/dL (0.15-1.2); Total Protein 6.5 g/dL (6.6-8.7)
[2020-11-09 16:53] LABS: Lactic Sepsis W/Reflex 0.7 mmol/L (0.5-2.2)
[2020-11-09 17:53] LABS: Slide Review Slide Review Perform
[2020-11-09 17:56] LABS: White Blood Count 0.7 10^3/uL (4.0-10.0)
[2020-11-09 17:57] LABS: Neutrophils # 0.02 10^3/uL (1.8-7.7)
[2020-11-09] MEDS: iohexol 300 mg/mL 100 mL Btl IV (18:19)
[2020-11-09] MEDS: cefepime 1,000 MG in sodium chloride 0.9% (plus) 50 ML 100 MG IV (18:23)
--- NOTE | 2020-11-09 19:54 | PC.NURSE ---
report called to Charline Dodd RN
[2020-11-10] VITALS: BP 155/83; PULSE 71; RESP 17; TEMP 36.6; O2SAT 98
[2020-11-10 00:14] LABS: Potassium, Radom Urine 24 mmol/L
[2020-11-10 00:15] LABS: Urine Random Chloride 11 mmol/L
[2020-11-10 00:28] LABS: Urine Random Sodium < 10 mmol/L
[2020-11-10 04:00] VITALS: BP 132/79; PULSE 85; RESP 15; TEMP 36.3; O2SAT 99
[2020-11-10 05:47] LABS: Basophils % 0.6 %; Eosinophils % 0.6 %; Hematocrit 36.3 % (37.0-47.0); Hemoglobin 12.7 g/dL (11.5-15.3); Mean Corpuscular Hemoglobin 33.1 pg (28.0-34.0); Mean Corpuscular Volume 94.5 fl (81-99); Mean Platelet Volume 11.1 fL (7.4-10.4); Monocytes # 0.7 10^3/uL (0.2-0.9); Monocytes % 38.5 %; Neutrophils % 2.3 %; Nucleated Red Blood Cells % 0 %; Platelet Count 118 10^3/cmm (130-400); Red Blood Count 3.84 10^6/uL (4.1-5.3); Red Cell Distribution Width 11.6 % (12.1-15.1); White Blood Count 1.7 10^3/uL (4.0-10.0)
[2020-11-10 06:08] LABS: Alanine Aminotransferase 36 U/L (0-33); Albumin Level 3.2 g/dL (3.5-5.2); Alkaline Phosphatase 47 IU/L (35-105); Anion Gap 12.3 (5-19); Aspartate Amino Transferase 14 U/L (0-32); Blood Urea Nitrogen 11 mg/dL (8-23); Calcium 8.6 mg/dL (8.5-10.5); Carbon Dioxide 22 mmol/L (22-29); Chloride 100 mmol/L (98-107); Globulin 2.7 g/dL (1.3-4.6); Glomerular Filtration Rate 100.3 mL/min (90-130); Glucose 99 mg/dL (65-115); Osmolality Calculated 271 mOsm/kg (285-295); Potassium 3.3 mmol/L (3.5-5.1); Sodium 131 mmol/L (136-145); Total Bilirubin 0.3 mg/dL (0.15-1.2); Total Protein 5.9 g/dL (6.6-8.7)
[2020-11-10 06:44] LABS: Neutrophils # 0.04 10^3/uL (1.8-7.7); Slide Review Slide Review Perform
[2020-11-10 07:51] VITALS: BP 116/72; PULSE 83; RESP 17; TEMP 36.9; O2SAT 99
[2020-11-10 11:24] VITALS: BP 125/72; PULSE 69; RESP 18; TEMP 36.9; O2SAT 98
[2020-11-10] MEDS: pantoprazole DR 40 mg Tablet PO (11:49)
[2020-11-10] MEDS: sodium chloride 0.9% 1,000 ML 75 ML IV (11:50)
[2020-11-10] MEDS: levoFLOXacin 500 mg Tablet PO (11:50)
[2020-11-10] MEDS: lidocaine 2% viscous 1.667 ML, diphenhydrAMINE oral liq 4.165 MG, aluminum-mag hydrox-s... MUCOUS MEM (11:52)
[2020-11-10 14:03] LABS: Coronavirus Test Green County Not Detected
[2020-11-10 14:41] LABS: Iron 39 ug/dL (37-145); Percent Saturation 19.5 % (20-50); Total Iron Binding Capacity 199 mcg/dl; Unsaturated Iron Binding 160 ug/dL (112-347)
--- NOTE | 2020-11-10 15:09 | PM.PN ---
Subjective Subjective: Interval history: Admitted overnight, on examination lying comfortably in bed. States her oral source a little better and is able to tolerate liquids for now though still waiting for liquid diet. Denies any nausea vomiting, headache, dizziness. Vitals/I&O/Wt Last Vital Signs Temp 98.4 F 11/10/20 11:24 Pulse 69 11/10/20 11:24 Resp 18 11/10/20 11:24 BP 125/72 11/10/20 11:24 Pulse Ox 98 11/10/20 11:24 11/10/20 11/10/20 11/10/20 06:59 14:59 22:59 Intake Total 240 / 240 Balance 240 / 240 Weight last 48 hrs Weight 64.41 kg Data : 11/10/20 05:16 11/10/20 05:16 Micro: Microbiology 11/09/20 16:10 Legionella Urinary Antigen - Final Unknown Source 11/09/20 16:10 Bacterial Antigens - Final Urine Kidney 11/09/20 00:00 C.difficile Toxin B Gene (PCR) - Final Stool Routine Collection 11/09/20 16:44 TALHA Preparation - Final Mouth 11/09/20 16:10 Blood Culture - Preliminary Blood SPECIMEN COLLECTED 11/09/20 16:07 Blood Culture - Preliminary Blood SPECIMEN COLLECTED A&P Assessment and plan (1) Neutropenia: Status: Acute Qualifiers: Neutropenia type: secondary to cancer chemotherapy Qualified Code(s): D70.1 - Agranulocytosis secondary to cancer chemotherapy; T45.1X5A - Adverse effect of antineoplastic and immunosuppressive drugs, initial encounter (2) Hyponatremia: Status: Acute (3) Mucositis (ulcerative) due to antineoplastic therapy: Status: Acute (4) Intractable nausea and vomiting: Status: Acute Additional A&P Information Neutropenia: Most likely secondary to recent chemotherapy. Improving. Case discussed with outpatient oncologist. Will give 1 dose of Neupogen. Continue to monitor daily. Neutropenic precautions. Follow-up continue with oral Levaquin. Hyponatremia: Most likely secondary dehydration from poor oral intake. Resolving. Continue with normal saline at 75 cc/h. Intractable nausea and vomiting secondary to mucositis: Mucositis likely related to chemotherapy and neutropenia. CT abdomen pelvis negative for gastroenteritis. Stool studies including C. difficile, enteric panel. Continue with Magic mouthwash every 4 hours as needed. Clear liquid diet. We will try to advance gradually. No perioral ulceration or vesicular lesion concerning for HSV. No evidence of thrush. Given neutropenia for now start patient on nystatin 500,000 4 times daily. Zofran as needed. Protonix OPD prophylaxis. Lovenox for DVT prophylaxis. Full code. Clear liquid diet. Attestations Medical Necessity Statement*: Requires further hospitalization for management of neutropenia secondary to chemotherapy, poor oral intake/dehydration/hyponatremia secondary to mucositis Time Spent in Patient Care: Greater than 35 minutes (>than 50% of time spent in counselling and/or direct pt care on unit). Coding Level of Care Code Acute Site Acquisition Specialist for g Fwd Diagnoses Neutropenia D70.1; T45.1X5A Neutropenia type: secondary to cancer chemotherapy Hyponatremia E87.1 Mucositis (ulcerative) due to antineoplastic therapy K12.31 Intractable nausea and vomiting R11.2
[2020-11-10 15:23] VITALS: BP 138/73; PULSE 66; RESP 17; TEMP 37.1; O2SAT 99
[2020-11-10] MEDS: potassium chloride ER 20 mEq Tablet 40 MEQ PO (16:37)
[2020-11-10] MEDS: nystatin 100,000 unit/mL UDC 5 mL 500000 UNIT PO ×2 (16:37→21:21)
[2020-11-10 20:00] VITALS: BP 125/73; PULSE 65; RESP 18; TEMP 36.9; O2SAT 98
[2020-11-10] MEDS: enoxaparin 40 mg/0.4 mL Syringe SUBCUT (21:21)
[2020-11-11] VITALS: BP 165/78; PULSE 75; RESP 16; TEMP 36.7; O2SAT 97
[2020-11-11] MEDS: sodium chloride 0.9% 1,000 ML 75 ML IV (00:03)
[2020-11-11 04:00] VITALS: BP 111/64; PULSE 69; RESP 16; TEMP 36.8; O2SAT 98
[2020-11-11 05:23] LABS: Basophils # 0.1 10^3/uL (0.0-0.1); Basophils % 1.3 %; Eosinophils % 0.5 %; Hematocrit 34.3 % (37.0-47.0); Hemoglobin 11.8 g/dL (11.5-15.3); Lymphocytes # 1.2 10^3/uL (0.8-4.8); Lymphocytes % 30.3 %; Mean Corpuscular HGB Conc 34.4 g/dL (30.0-36.0); Mean Corpuscular Hemoglobin 33.1 pg (28.0-34.0); Mean Corpuscular Volume 96.3 fl (81-99); Mean Platelet Volume 10.6 fL (7.4-10.4); Monocytes % 24.7 %; Neutrophils % 38.6 %; Nucleated Red Blood Cells % 0 %; Platelet Count 133 10^3/cmm (130-400); Red Blood Count 3.56 10^6/uL (4.1-5.3); Red Cell Distribution Width 11.7 % (12.1-15.1); White Blood Count 3.9 10^3/uL (4.0-10.0)
[2020-11-11 05:46] LABS: Alanine Aminotransferase 29 U/L (0-33); Albumin Level 3.1 g/dL (3.5-5.2); Alkaline Phosphatase 47 IU/L (35-105); Anion Gap 12.5 (5-19); Aspartate Amino Transferase 13 U/L (0-32); Blood Urea Nitrogen 8 mg/dL (8-23); Calcium 8.5 mg/dL (8.5-10.5); Carbon Dioxide 18 mmol/L (22-29); Chloride 107 mmol/L (98-107); Globulin 2.6 g/dL (1.3-4.6); Glomerular Filtration Rate 100.3 mL/min (90-130); Glucose 81 mg/dL (65-115); Osmolality Calculated 275 mOsm/kg (285-295); Potassium 3.5 mmol/L (3.5-5.1); Sodium 134 mmol/L (136-145); Total Bilirubin 0.3 mg/dL (0.15-1.2); Total Protein 5.7 g/dL (6.6-8.7)
[2020-11-11 06:09] LABS: Slide Review Slide Review Perform
[2020-11-11 08:00] VITALS: BP 122/68; PULSE 62; RESP 16; TEMP 36.7; O2SAT 98
[2020-11-11] MEDS: pantoprazole DR 40 mg Tablet PO (09:06)
[2020-11-11] MEDS: levoFLOXacin 500 mg Tablet PO (09:06)
[2020-11-11] MEDS: nystatin 100,000 unit/mL UDC 5 mL 500000 UNIT PO ×2 (09:06→13:53)
[2020-11-11 11:47] VITALS: BP 125/73; PULSE 70; RESP 18; TEMP 36.7; O2SAT 98
--- NOTE | 2020-11-11 12:14 | P.DS_ITS ---
Discharge Providers Date of Admission: 11/09/20 18:24 Date of Discharge: November 11, 2020 Attending Provider at Admission: Carole Brown MD Attending Provider at Discharge: Hilton Stiles MD Primary Care Provider: Sukhjinder Allen MD Diagnoses at Discharge Discharge Diagnosis (1) Neutropenia: Status: Acute (2) Hyponatremia: Status: Acute (3) Mucositis (ulcerative) due to antineoplastic therapy: Status: Acute (4) Intractable nausea and vomiting: Status: Acute Reason for Visit Reason for Visit: LOW WBC: SENT BY DR CHATMAN [facility] Course Hospital Course Chioma Willams is a 65 year old female recently diagnosed with breast cancer, started neoadjuvant chemotherapy with carboplatin/Taxotere/Perjeta/Herceptin on November 01, 2020. Three days after chemotherapy she started experiencing nausea and vomiting, average 2 episodes of vomiting per day, multiple episodes of diarrhea with generalized soreness in the abdomen. Also c/o odynophagia and mouth ulcers. no fever. No URI symptoms. No cough, chest pain, dyspnea, palpitations. No blood in stools. No hematemesis. no sick contacts. Had egg drop soup from restaurant on 11/05, however symptoms have remained unchanged overall. ANC today noted to be <500. CT abdomen/pelvis without acute abnormalities. She was admitted to the hospital for further management of neutropenic fever, leukocytosis secondary to recent chemotherapy. COVID-19 antigen and PCR came back negative. CT abdomen pelvis was done which ruled out any signs of infection. Blood cultures so far remain negative. Patient did not have any further fever while in hospitalization. Her white count and ANC continue to improve. Patient received 1 dose of Neupogen while in hospital. She is able to tolerate liquid to full liquid diet without much difficulties currently. She has been discharged in hemodynamically stable condition with advised to take full liquid to softer foods for next few days and then advance gradually as tolerable. She is advised to take Levaquin which is the antibiotics for next 5 days. She is to take nystatin swish and swallow for next 1 week. She is to follow-up with her primary care provider within next 1 week for repeat CBC and with her oncologist on the next set appointment. Physical Exam Narrative: EXAM NARRATIVE: General: No acute distress, AO x3, HEENT: PERRLA, pupils bilaterally equal and reactive, pallors not present, mucositis with superficial ulcerations affecting hard and soft palate Chest: Normal vesicular breath sounds, no added sounds, equal good air entry bilaterally CVS: S1-S2 regular, no murmurs, no tachycardia, no gallops, no rubs Abdomen: Soft, nontender, no organomegaly, bowel sounds present Neuro: No focal deficits, no facial deformity, AO x3, power 5/5 in all limbs Discharge Data Data Completed and Pending: Completed Studies During Hospitalization Category Date Time Status CT abdomen pelvis w con* [id number] Stat Cat Scan 11/09/20 16:21 Completed XR chest 1V zaid ble [id number] Stat Exams 11/09/20 15:37 Completed Pending at discharge Category Date Time Status Blood Culture Sta t Lab 11/09/20 16:10 Results Clostridioides Di fficile PCR Routin e Lab 11/10/20 18:31 Results Enteric Parasite Panel by PCR Routi ne Lab 11/10/20 18:31 Results Lactoferrin Routi ne Lab 11/10/20 18:31 Results MRSA by PCR Routi ne Lab 11/10/20 19:35 Received Labs from last 24 hours 11/11/20 11/11/20 11/10/20 05:12 05:12 05:16 WBC 3.9 L RBC 3.56 L Hgb 11.8 Hct 34.3 L MCV 96.3 MCH 33.1 MCHC 34.4 RDW 11.7 L Plt Count 133 MPV 10.6 H Neut % (Auto) 38.6 Lymph % (Auto) 30.3 Bledsoe % (Auto) 24.7 Eos % (Auto) 0.5 Baso % (Auto) 1.3 Neut # (Auto) 1.50 L Lymph # (Auto) 1.2 Bledsoe # (Auto) 1.0 H Eos # (Auto) 0.0 Baso # (Auto) 0.1 Nucleated RBC % (a uto) 0 Nucleated RBCs # 0.0 Sodium 134 L Potassium 3.5 Chloride 107 Carbon Dioxide 18 L Anion Gap 12.5 BUN 8 Creatinine 0.6 GFR Calculation 100.3 Glucose 81 Calculated Osmolal ity 275 L Calcium 8.5 Iron 39 TIBC 199 % Saturation 19.5 L Unsat Iron Binding 160 Total Bilirubin 0.3 AST 13 ALT 29 Alkaline Phosphata se 47 Total Protein 5.7 L Albumin 3.1 L Globulin 2.6 Nasal/Oral COVID-1 9 PCR 11/09/20 22:01 WBC RBC Hgb Hct MCV MCH MCHC RDW Plt Count MPV Neut % (Auto) Lymph % (Auto) Bledsoe % (Auto) Eos % (Auto) Baso % (Auto) Neut # (Auto) Lymph # (Auto) Bledsoe # (Auto) Eos # (Auto) Baso # (Auto) Nucleated RBC % (a uto) Nucleated RBCs # Sodium Potassium Chloride Carbon Dioxide Anion Gap BUN Creatinine GFR Calculation Glucose Calculated Osmolal ity Calcium Iron TIBC % Saturation Unsat Iron Binding Total Bilirubin AST ALT Alkaline Phosphata se Total Protein Albumin Globulin Nasal/Oral COVID-1 9 PCR Not detected Addt'l Data from Hospital Stay: Laboratory Results WBC 3.9 10^3/uL (4.0- 10.0) L 11/11/20 05:12 RBC 3.56 10^6/uL (4.1 -5.3) L 11/11/20 05:12 Hgb 11.8 g/dL (11.5-1 5.3) 11/11/20 05:12 Hct 34.3 % (37.0-47.0 ) L 11/11/20 05:12 MCV 96.3 fl (81-99) 11/11/20 05:12 MCH 33.1 pg (28.0-34. 0) 11/11/20 05:12 MCHC 34.4 g/dL (30.0-3 6.0) 11/11/20 05:12 RDW 11.7 % (12.1-15.1 ) L 11/11/20 05:12 Plt Count 133 10^3/cmm (130 -400) 11/11/20 05:12 MPV 10.6 fL (7.4-10.4 ) H 11/11/20 05:12 Neut % (Auto) 38.6 % 11/11/20 05:12 Lymph % (Auto) 30.3 % 11/11/20 05:12 Bledsoe % (Auto) 24.7 % 11/11/20 05:12 Eos % (Auto) 0.5 % 11/11/20 05:12 Baso % (Auto) 1.3 % 11/11/20 05:12 Neut # (Auto) 1.50 10^3/uL (1.8 -7.7) L 11/11/20 05:12 Lymph # (Auto) 1.2 10^3/uL (0.8- 4.8) 11/11/20 05:12 Bledsoe # (Auto) 1.0 10^3/uL (0.2- 0.9) H 11/11/20 05:12 Eos # (Auto) 0.0 10^3/uL (0.0- 0.8) 11/11/20 05:12 Baso # (Auto) 0.1 10^3/uL (0.0- 0.1) 11/11/20 05:12 Nucleated RBC % (a uto) 0 % 11/11/20 05:12 Nucleated RBCs # 0.0 /100WBC 11/11/20 05:12 Sodium 134 mmol/L (136-1 45) L 11/11/20 05:12 Potassium 3.5 mmol/L (3.5-5 .1) 11/11/20 05:12 Chloride 107 mmol/L (98-10 7) 11/11/20 05:12 Carbon Dioxide 18 mmol/L (22-29) L 11/11/20 05:12 Anion Gap 12.5 (5-19) 11/11/20 05:12 BUN 8 mg/dL (8-23) 11/11/20 05:12 Creatinine 0.6 mg/dL (0.5-0. 9) 11/11/20 05:12 GFR Calculation 100.3 mL/min (90- 130) 11/11/20 05:12 Glucose 81 mg/dL (65-115) 11/11/20 05:12 Calculated Osmolal ity 275 mOsm/kg (285- 295) L 11/11/20 05:12 Lactic Acid 0.7 mmol/L (0.5-2 .2) 11/09/20 16:07 Calcium 8.5 mg/dL (8.5-10 .5) 11/11/20 05:12 Magnesium 2.0 mg/dL (1.7-2. 3) 11/10/20 05:16 Iron 39 ug/dL (37-145) 11/10/20 05:16 TIBC 199 mcg/dl 11/10/20 05:16 % Saturation 19.5 % (20-50) L 11/10/20 05:16 Unsat Iron Binding 160 ug/dL (112-34 7) 11/10/20 05:16 Total Bilirubin 0.3 mg/dL (0.15-1 .2) 11/11/20 05:12 AST 13 U/L (0-32) 11/11/20 05:12 ALT 29 U/L (0-33) 11/11/20 05:12 Alkaline Phosphata se 47 IU/L (35-105) 11/11/20 05:12 Creatine Kinase 17 U/L (26-192) L 11/09/20 16:07 Total Protein 5.7 g/dL (6.6-8.7 ) L 11/11/20 05:12 Albumin 3.1 g/dL (3.5-5.2 ) L 11/11/20 05:12 Globulin 2.6 g/dL (1.3-4.6 ) 11/11/20 05:12 Lipase 43 U/L (13-60) 11/09/20 16:07 Urine Color Yellow (Yellow) 11/09/20 16:10 Urine Appearance Clear (CLEAR) 11/09/20 16:10 Urine pH 5 (5-7) 11/09/20 16:10 Ur Specific Gravit y 1.010 (1.005-1.0 30) 11/09/20 16:10 Urine Protein Neg (Negative) 11/09/20 16:10 Urine Glucose (UA) Trace (Normal) H 11/09/20 16:10 Urine Ketones 1+ (Negative) H 11/09/20 16:10 Urine Blood Neg (Negative) 11/09/20 16:10 Urine Nitrate Negative (Negati ve) 11/09/20 16:10 Urine Bilirubin Neg (Negative) 11/09/20 16:10 Urine Urobilinogen Norm mg/dL (Negat brayan) 11/09/20 16:10 Ur Leukocyte Mahi ase Negative (Negati ve) 11/09/20 16:10 Ur Random Sodium < 10 mmol/L 11/09/20 16:10 Ur Random Potassiu m 24 mmol/L 11/09/20 16:10 Ur Random Chloride 11 mmol/L 11/09/20 16:10 Nasal/Oral COVID-1 9 PCR Not detected 11/09/20 22:01 Impressions Chest X-Ray 11/09/20 15:37 IMPRESSION: 1. Negative for airspace infiltrate. 2. Left-sided Port-A-Cath. 3. Left costophrenic angle scarring again seen. 4. Emphysematous changes suspected. Abdomen/Pelvis CT 11/09/20 16:21 IMPRESSION: 1. No acute findings. 2. Incidental findings above. Radiation Dose CTDIVOL = (mGy): DLP = 1024.6 (mGy-cm) Microbiology 11/10/20 18:31 Stool Stool Lactoferrin - Final 11/10/20 18:31 Stool C.difficile Toxin B Gene (PCR) - Final 11/09/20 00:00 Stool Routine Collection Enteric Pathogens (PCR) - Final 11/09/20 16:10 Blood Blood Culture - Preliminary NEGATIVE TO DATE 11/09/20 16:07 Blood Blood Culture - Preliminary NEGATIVE TO DATE 11/09/20 16:10 Unknown Source Legionella Urinary Antigen - Final 11/09/20 16:10 Urine Kidney Bacterial Antigens - Final 11/09/20 00:00 Stool Routine Collection C.difficile Toxin B Gene (PCR) - Final 11/09/20 16:44 Mouth TALHA Preparation - Final Vitals: Last Vital Signs Temp 98.1 F 11/11/20 11:47 Pulse 70 11/11/20 11:47 Resp 18 11/11/20 11:47 BP 125/73 11/11/20 11:47 Pulse Ox 98 11/11/20 11:47 Discharge Plan Discharge Patient Disposition: Home Condition: Stable Prescriptions: New pantoprazole 40 mg Tablet,Delayed Release (Dr/Ec) 40 mg PO DAILY 14 Days Qty: 14 RF: 0 levofloxacin 500 mg Tablet 500 mg PO DAILY 5 Days Qty: 5 RF: 0 nystatin 100,000 unit/mL suspension 1 ml PO QID 7 Days Qty: 28 RF: 0 Continued albuterol sulfate [ProAir HFA] 90 mcg/actuation HFA aerosol inhaler 2 puff inhalation Q6H PRN (Reason: Shortness Of Breath) RF: 0 Spiriva Respimat 2.5 mcg/actuation mist 2 puff inhalation DAILY Qty: 4 RF: 3 Lexapro 10 mg Tablet 10 mg PO DAILY RF: 0 Held dexamethasone 4 mg tablet 8 mg PO BID RF: 0 Hold Instructions: Resume on 11/18/20. Discharge Orders: Discharge Order (Routine); Ordered 11/11/20 Ordered By: Hilton Stiles Referrals: Ariana Chatman MD [Staff Physician] - 1 week Sukhjinder Allen MD [Primary Care Provider] - 7-10 days Discharge Diet: Advance as tolerated, GI Soft and Full LIquid Discharge Activity: Resume usual activity Patient Instructions: Opioid Safety Activity Restrictions/Additional Instructions: Please sign take multiple small soft meals. You can take liquid diet including broth, mashed potatoes for next 1 week and then advance gradually when you are able to take softer foods. Please take levofloxacin for 5 more days. Please use nystatin swish and swallow 4 times a day for next 7 days. Please follow-up with your oncologist within next 1 week. Please follow-up with your primary care provider within next 1 week for repeat CBC. Discharge Attestations Time Spent in Discharge Care*: greater than 30 min Specific Discharge Activities: educating patient, discussing with pcp/other providers, discussing with skilled nursing case manager/social workers/dc planners, documenting/other paperwork and evaluating patient/reviewing data Status at Discharge: Cognitive status at discharge: cognitively intact , Behavioral status at discharge: cooperative , Functional status at discharge: independent ambulation Overall status at discharge: patient is back to baseline Quality Metrics Clinical Quality Measures During this hospital stay, did patient experience: None Coding Level of Care Code Acute Chg FW DC note Diagnoses Neutropenia D70.9 Hyponatremia E87.1 Mucositis (ulcerative) due to antineoplastic therapy K12.31 Intractable nausea and vomiting R11.2
[2020-11-11 14:13] VITALS: BP 125/73; PULSE 70; RESP 18; TEMP 36.7; O2SAT 98
--- NOTE | 2020-11-12 10:08 | PC.SOCIAL ---
discharge follow up call made. patient reports she is feeling better. she is tolerating a liquid diet, her mouth is improving with the nystatin. she will advance her diet as she can. patient is taking medications as prescribed. she is aware of follow up appointment dates and times. she will resume her dexamethasone on 11-18
--- NOTE | 2020-11-12 14:56 | PC.RESP ---
SMOKING CESSATION INFORMATION SENT TO PATIENT.
== END 2020-11-11 14:15 | disposition home or self-care (01) ==
LOC: ER 16:36 → MEDSURG 11-10 07:18
PROVIDERS: Absent Provider Internal Medicine Hematology & Oncology; Admitting Provider Student in an Organized Health Care Education/Training Program; Emergency Provider Family Medicine; PCP Family Medicine; Visit Provider Student in an Organized Health Care Education/Training Program
DX: D70.9 Neutropenia, unspecified (principal); E87.1 Hypo-osmolality and hyponatremia; K12.31 Oral mucositis (ulcerative) due to antineoplastic therapy; R11.2 Nausea with vomiting, unspecified; C50.919 Malignant neoplasm of unspecified site of unspecified female breast; T45.1X5A Adverse effect of antineoplastic and immunosuppressive drugs, initial encounter; C50.811 Malignant neoplasm of overlapping sites of right female breast; Z17.1 Estrogen receptor negative status [ER-]; Z85.118 Personal history of other malignant neoplasm of bronchus and lung; J44.9 Chronic obstructive pulmonary disease, unspecified; F17.200 Nicotine dependence, unspecified, uncomplicated; Z79.899 Other long term (current) drug therapy
CPT/HCPCS: 36415; 36591; 71045; 74177; 80053; 81003; 82436; 82550; 83540; 83550; 83605; 83630; 83690; 83735; 84133; 84300; 85025; 86403; 87040; 87210; 87449; 87493; 87506; 87635; 87641; 93005; 96361; 96365; 96366; 96367; 96372; 96375; 99214; 99291; G0378; J0692; J1442; J1650; J2405; J7030; Q9967

== ENCOUNTER 2020-11-24 12:57 | Outpatient (CLI) | payer MEDICARE, SELFPAY ==
--- NOTE | 2020-11-24 14:10 | ONC FU_ITS ---
Dr. Ness follow up note Patient: Chioma Willams Unit #: [id number]: 1955 Dicatated By: Ariana Ness M.D.Date of Visit:Nov 24, 2020 Onc Med Follow-up/Prog Note History of Present Illness: Ms. Chioma Willams, is a 65-year-old female with a history of lung cancer, diagnosed in 2003, at that time she underwent resection as per patient she was not offered any further treatment as it was a early stage disease. Patient also has history of COPD and chronic smoking during her routine follow-up for lung cancer she underwent CT scan of the chest on September 01, 2020 which showed fibrotic appearing spiculated opacity in the left upper lobe anteriorly measuring 1.9 x 1.2 cm and additional fibrotic appearing spiculated subpleural opacity left upper lobe along the fissure posteriorly abutting pleura measuring 1.4 x 1.2 cm and additional indeterminant small spiculated opacity right upper lobe measuring 5 mm, for which CT PET scan was recommended which was done on September 04, 2020 which showed 1.6 cm solid linear nodule in the left upper lobe with SUV of 1.8, most suggestive of benign scarring. But there was incidental finding showing FDG uptake in the central right breast, there is a solid 1.4 x 1.0 cm parenchymal lesion with SUV of 15.9, has a high probability of breast primary. And multiple right axillary lymph nodes FDG positive with SUV up to 9.1 measuring up to 2.5 cm in length. Left breast and axilla unremarkable. Patient underwent mammogram on September 23, 2020 which showed a high density mass measuring 1.7 x 1.5 cm in the inferior medial right breast there is also adjacent skin thickening and volume loss in the right breast. Single mildly prominent lymph node in the right axilla., On September 23, 2020 she underwent ultrasound-guided right breast biopsy which confirmed invasive ductal carcinoma lymphovascular invasion seen, as per discussion with Dr. Nolasco pathologist her tumor is ER/PA negative and HER-2/bola 3+ positive by IHC, FISH Confirmed it, Ki-67 90%. Patient is complaining of discomfort in the lateral areolar area and in the right axilla but denies any overlying skin changes denies any nipple discharge denies any trauma to her breast except recently underwent ultrasound-guided biopsy, denies any fever or chills, denies any signs symptom suggestive of infection. Patient said Tylenol alone is not helping her. Patient denies any new bony pains patient denies any headaches blurred vision double vision, denies any hemoptysis or hematemesis. Denies any chest pain, shortness of breath or palpitation, denies any history of chest pain or cardiac problem. Patient has history of COPD, and still smoking actively. Denies alcohol use. Started on neoadjuvant therapy with carboplatin/Taxotere/Perjeta/Herceptin on November 01, 2020 Came for follow-up, denies any specific complaint except generalized weakness and fatigue but feeling much better, since her last chemotherapy, patient was admitted to hospital with neutropenic fever was treated with parenteral antibiotic and supportive care, patient recovered well now. Now denies any fever chills denies any nausea or vomiting denies any diarrhea or constipation denies any mouth sores. 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 Medications: Albuterol Sulfate 2 Puff(s) (of 108 (90 base) mcg/act) Aerosol Powder, Breath Activated Inhalation PRN Allergies: No Known Allergies. Review of Systems: Review of Systems is not available for this patient. Vital Signs: Performed on Nov 24, 2020 13:18 Height - 67.00 in Weight - 144.2 lbs (HIGH) BSA - 1.76 sq.m BMI - 22.59 Temperature - 96.7 F (LOW) Pulse - 69 /min Respiration - 18 /min BP - 132/79 mm(hg) O2 Sat - 97 % Pain - 0 Fatigue - 0 Performance Status: 0 - Fully active, able to carry on all predisease activities without restrictions. (ECOG) Physical Examination: Respiratory - Lungs are clear to auscultation, Cardiovascular - Regular rate and rhythm of heart, Gastrointestinal - Soft, bowel sounds present, Extremities - No visible edema. Lab/Imaging: Test performed on Nov 18, 2020 08:50 Glucose 96 mg/dL BUN 6 mg/dL Creatinine 0.74 mg/dL Cr Clearance (Est) 79.35 mL/min BUN/Creatinine Ratio 8 Absolute Value Sodium 144 mmol/L Potassium 4.2 mmol/L Chloride 104 mmol/L CO2 29 mmol/L Calcium 9.2 mg/dL Protein, Total 5.9 g/dL Albumin 3.7 g/dL Globulin 2.2 g/dL A/G Ratio 1.7 Absolute Value Bilirubin, Total 0.3 mg/dL Alkaline Phosphatase 47 International Units/L AST (SGOT) 17 International Units/L ALT (SGPT) 24 International Units/L WBC 7.4 10^9/L RBC 3.87 10^12/L HGB 12.7 g/dL HCT 38.6 % MCV 99.7 fl MCH 32.8 pg MCHC 32.9 g/dL RDW 12.7 % Platelet Count 177 10^9/L MPV 10.0 fL Neutrophils (Gran) 4.4 10^9/L Lymphocytes 1.7 10^9/L Monocytes 8.14 10^9/L Eosinophils 0.74 10^9/L Basophils 0 10^9/L Manual Bands 2 % Manual Lymphocytes 23 % Manual Monocytes 11 % Manual Eosinophils 1 % Manual Basophils 0 % Platelet Estimate adequate Test performed on Nov 01, 2020 09:35 eGFR 100.3 mL/min Neutrophil % 85.5 % Lymphocyte % 7.6 % Monocyte % 5.9 % Eosinophil % 0.0 % Basophils % 0.1 % NRBC % 0 % Impression: Invasive ductal carcinoma involving right breast per ultrasound guided biopsy done on September 23, 2020, as per pathology report shows ER negative PA negative, HER-2/bola 3+ positive by IHC , FISH Also confirmed, with very high Ki-67, at 90% CT PET scan done on September 04, 2020 showed 1.4 x 1.0 cm central right breast lesion with SUV of 15.9 and multiple right axillary lymph nodes positive with SUV of 2.9.1 measuring 2.[address] length[address] CT PET scan was done to confirm abnormal findings seen on CT scan of chest for follow-up for history of lung cancer which was diagnosed in 2013 at that time she underwent resection only no further treatment was offered because of her early stage disease. History of lung cancer, diagnosed in 2013, as per patient underwent resection no further treatment was offered COPD Chronic smoking Plan: Discussed with patient regarding her labs from November 18, 2020 white blood count 7.4 hemoglobin 12.7 hematocrit 38.6 platelets 177,000 CMP within normal limits Clinically, patient doing well with no new signs symptom, now recovering well from recent episode of neutropenic fever/sepsis required inpatient care. Overall patient is feeling better, she will return to clinic on Sunday to take second cycle of chemotherapy with Herceptin/Perjeta/carboplatin/Taxotere followed by Neulasta to prevent chemotherapy-induced neutropenia/leukopenia As far as anxiety, is concerned, she was advised to try Ativan 0.5 mg every 8 hours as needed, may help her neck tremor too.And then she will return to clinic 2 weeks after her next chemotherapy with CBC CMP Signed By: Ariana Ness M.D. <<Signature on File>>
== END 2020-11-24 12:58 | disposition home or self-care (01) ==
PROVIDERS: PCP Family Medicine; Visit Provider Internal Medicine Hematology & Oncology
DX: C50.811 Malignant neoplasm of overlapping sites of right female breast (principal); Z17.1 Estrogen receptor negative status [ER-]; Z85.118 Personal history of other malignant neoplasm of bronchus and lung; J44.9 Chronic obstructive pulmonary disease, unspecified; F17.200 Nicotine dependence, unspecified, uncomplicated; Z92.21 Personal history of antineoplastic chemotherapy; F41.9 Anxiety disorder, unspecified; Z79.899 Other long term (current) drug therapy
CPT/HCPCS: 99214

== ENCOUNTER 2020-12-17 06:14 | Outpatient (RCR) | payer MEDICARE, SELFPAY ==
[2020-11-29 08:41] LABS: Basophils % 0.2 %; Hematocrit 34.4 % (37.0-47.0); Hemoglobin 11.7 g/dL (11.5-15.3); Lymphocytes # 1.4 10^3/uL (0.8-4.8); Lymphocytes % 8.4 %; Mean Corpuscular Hemoglobin 33.6 pg (28.0-34.0); Mean Corpuscular Volume 98.9 fl (81-99); Mean Platelet Volume 10.2 fL (7.4-10.4); Monocytes % 6.1 %; Neutrophils # 14.21 10^3/uL (1.8-7.7); Nucleated Red Blood Cells % 0 %; Platelet Count 319 10^3/cmm (130-400); Red Blood Count 3.48 10^6/uL (4.1-5.3); Red Cell Distribution Width 12.8 % (12.1-15.1); White Blood Count 16.9 10^3/uL (4.0-10.0)
[2020-11-29 09:18] LABS: Alanine Aminotransferase 15 U/L (0-33); Albumin Level 3.6 g/dL (3.5-5.2); Alkaline Phosphatase 59 IU/L (35-105); Anion Gap 17.6 (5-19); Aspartate Amino Transferase 10 U/L (0-32); Blood Urea Nitrogen 9 mg/dL (8-23); Calcium 9.5 mg/dL (8.5-10.5); Carbon Dioxide 21 mmol/L (22-29); Chloride 101 mmol/L (98-107); Globulin 3.1 g/dL (1.3-4.6); Glucose 126 mg/dL (65-115); Osmolality Calculated 282 mOsm/kg (285-295); Potassium 3.6 mmol/L (3.5-5.1); Sodium 136 mmol/L (136-145); Total Bilirubin 0.2 mg/dL (0.15-1.2); Total Protein 6.7 g/dL (6.6-8.7)
[2020-11-29] MEDS: diphenhydrAMINE 50 mg/mL SDV 1mL 25 MG IV (10:26)
[2020-11-29] MEDS: acetaminophen 325 mg Tablet 650 MG PO (10:26)
[2020-11-29] MEDS: sodium chloride 0.9% 250 ML 75 ML IV (10:26)
[2020-11-29] MEDS: famotidine 20 mg Tablet PO (10:26)
[2020-11-29] MEDS: palonosetron 0.25 mg/5 mL SDV IV (10:30)
[2020-11-29] MEDS: fosaprepitant 150 MG in sodium chloride 0.9% 150 ML 300 MG IV (10:50)
[2020-11-30] MEDS: sodium chloride 0.9% 1,000 ML 999 ML IV (14:15)
[2020-12-06 14:19] LABS: Basophils # 0.1 10^3/uL (0.0-0.1); Basophils % 0.5 %; Eosinophils # 0.1 10^3/uL (0.0-0.8); Eosinophils % 0.7 %; Hematocrit 34.6 % (37.0-47.0); Hemoglobin 11.8 g/dL (11.5-15.3); Lymphocytes # 2.7 10^3/uL (0.8-4.8); Lymphocytes % 24.9 %; Mean Corpuscular HGB Conc 34.1 g/dL (30.0-36.0); Mean Corpuscular Hemoglobin 32.8 pg (28.0-34.0); Mean Corpuscular Volume 96.1 fl (81-99); Mean Platelet Volume 11.8 fL (7.4-10.4); Monocytes # 1.8 10^3/uL (0.2-0.9); Monocytes % 16.2 %; Neutrophils # 5.37 10^3/uL (1.8-7.7); Neutrophils % 48.7 %; Nucleated Red Blood Cells % 0 %; Platelet Count 157 10^3/cmm (130-400); Red Cell Distribution Width 12.3 % (12.1-15.1)
[2020-12-06 14:45] LABS: Slide Review Slide Review Perform
[2020-12-06 14:46] LABS: Alanine Aminotransferase 29 U/L (0-33); Albumin Level 3.8 g/dL (3.5-5.2); Alkaline Phosphatase 81 IU/L (35-105); Anion Gap 14.8 (5-19); Aspartate Amino Transferase 18 U/L (0-32); Blood Urea Nitrogen 8 mg/dL (8-23); Calcium 9.1 mg/dL (8.5-10.5); Carbon Dioxide 24 mmol/L (22-29); Chloride 96 mmol/L (98-107); Globulin 2.7 g/dL (1.3-4.6); Glomerular Filtration Rate 100.3 mL/min (90-130); Glucose 78 mg/dL (65-115); Osmolality Calculated 269 mOsm/kg (285-295); Potassium 3.8 mmol/L (3.5-5.1); Sodium 131 mmol/L (136-145); Total Bilirubin 0.2 mg/dL (0.15-1.2); Total Protein 6.5 g/dL (6.6-8.7)
--- NOTE | 2020-12-15 01:19 | ONC FU_ITS ---
[facility] Patient Note Patient: Chioma Willams Unit #: [id number]: 1955 Dictated By: Gila PiperDate of Visit: Dec 07, 2020 Onc MED Follow-Up/Prog Note Chief Complaint: Right breast cancer History of Present Illness: Ms. Willams is a 65-year-old female with a history of lung cancer originally diagnosed in 2003. At that time she underwent resection and as per patient, she was not offered any further treatment as it was a early stage disease. She also has history of COPD and chronic smoking. During her routine follow-up for lung cancer, she underwent CT scan of the chest on September 01, 2020. This reported fibrotic appearing spiculated opacity in the left upper lobe anteriorly measuring 1.9 x 1.2 cm. Additional fibrotic appearing spiculated subpleural opacity in the left upper lobe along the fissure posteriorly abutting pleura measured 1.4 x 1.2 cm. Additional indeterminant small spiculated opacity right upper lobe measuring 5 mm. Ms Willams then underwent CT PET imaging on September 04, 2020. This reported a 1.6 cm solid linear nodule in the left upper lobe with SUV of 1.8, most suggestive of benign scarring. But there was incidental finding showing FDG uptake in the central RIGHT breast. There was a solid 1.4 x 1.0 cm parenchymal lesion with SUV of 15.9, has a high probability of breast primary. Also noted were multiple right axillary lymph nodes FDG positive with SUV up to 9.1 measuring up to 2.5 cm in length. Left breast and axilla unremarkable. Patient underwent mammogram on September 23, 2020 which showed a high density mass measuring 1.7 x 1.5 cm in the inferior medial right breast there is also adjacent skin thickening and volume loss in the right breast. Single mildly prominent lymph node in the right axilla. On September 23, 2020 she underwent ultrasound-guided right breast biopsy which confirmed invasive ductal carcinoma lymphovascular invasion seen, as per discussion with Dr. Nolasco pathologist her tumor is ER/MD negative and HER-2/bola 3+ positive by IHC, FISH Confirmed it, Ki-67 90%. Patient has history of COPD, and still smoking actively. Denies alcohol use. Ms Willams was referred to Dr Ness for consulatation and treatment of her breast cancer. She was started on neoadjuvant therapy with carboplatin/Taxotere/Perjeta/Herceptin on November 01, 2020. She did develop neutropenic fever after her first cycle of chemotherapy requiring admissin to the hospital. She was treated with parenteral antibiotics and supportive care and recovered well. She received her second cycle with Neulasta support on November 29, 2020 Ms. Willams is here today for follow-up 1 week post treatment. She reports that she is doing well. She states that the Ativan Dr. Ness had given her for her chronic neck tremors had really helped and she would like a refill of that. She denies any recurrent fevers after the cycle. She denies any nausea or vomiting. She states she has not had any night sweats or chills. She states she feels good overall. She does not have any new shortness of breath orthopnea. She denies any chest pain or palpitations. She states her bowels and bladder are normal for her. She denies any neuropathy symptoms at this time. She states she has occasional numbness and tingling in her hands and feet but that is chronic and is no worse than what is normal. She states is not bothersome. She is try to remain active around the house but does tire easily but recovers well with rest. She denies any new concerns today. Her ECOG is 1. Past Medical History: Chronic obstructive pulmonary disease History of lung cancer in 2003 Past Surgical History: Appendectomy Covid vaccine #2 in 2020 Covid vaccine #1 in 2020 Hysterectomy/bilateral salpingectomy-oophorectomy in 1999 Cholecystectomy in 1977 Allergies: No Known Allergies. Medications: Albuterol Sulfate 2 Puff(s) (of 108 (90 base) mcg/act) Aerosol Powder, Breath Activated Inhalation PRN Family History: Ms. Willams's mother at age 82: congestive heart failure, and BREAST CANCER, and COLON CANCER. Ms. Willams's father at age 71: lung cancer. Social History: Ms. Willams is single. She is a daily smoker who has smoked 0.5 packs/day for 40 years. She drinks daily. She consumes 4 drinks/day 7 days/week. She has indicated exposure to the following products: cigarettes. Review Of Symptoms: <See Above> Vital Signs: Performed on Dec 07, 2020 08:41 Height - 67.00 in Weight - 140.6 lbs (LOW) BSA - 1.74 sq.m BMI - 22.02 Temperature - 98.3 F (LOW) Pulse - 93 /min Respiration - 18 /min BP - 147/83 mm(hg) (HIGH) O2 Sat - 97 % Pain - 0 Fatigue - 4,1 - No physically strenuous activity, but ambulatory and able to carry out light or sedentary work (e.g. office work, light house work). (ECOG) Physical Examination: Constitutional Alert, oriented, no acute distress. Skin pink, warm and dry. Head Normocephalic; atraumatic. Eyes Conjunctivae and sclerae are clear and without icterus. Pupils are reactive and equal. ENMT No oral exudates, ulcers, masses, thrush or mucositis. Oropharynx clear. Tongue normal. Neck Supple without masses or thyromegaly. No jugular venous distension. Hematologic/Lymphatic No petechiae or purpura. No tender or palpable lymph nodes in the cervical or supraclavicular areas. Respiratory Lungs are clear to auscultation without rhonchi or wheezing. Cardiovascular Regular rate and rhythm of heart without murmurs,clicks, gallops or rubs. Abdomen Non-tender, non-distended, no masses or ascites. Good bowel sounds noted in all quads. No guarding or rebound tenderness. No pulsatile masses. Back/Spine Non-tender to palpation. Extremities No visible deformities, no cyanosis, clubbing or edema. Musculoskeletal No tenderness or swelling, normal range of motion without obvious weakness. Integumentary No rashes or lesions. Neurologic No sensory or motor deficits, normal cerebellar function, normal gait. Psychiatric Alert and oriented times three. Coherent speech. Verbalizes understanding of our discussions today. Laboratory:Test performed on Nov 29, 2020 08:15 Sodium 136 mmol/L Potassium 3.6 mmol/L Chloride 101 mmol/L CO2 21 mmol/L Anion Gap 17.6 BUN 9 mg/dL Creatinine 0.8 mg/dL Cr Clearance (Est) 73.4000 mL/min eGFR 72.0 mL/min Glucose 126 mg/dL Osmolality - Calculated 282 mOsm/kg Calcium 9.5 mg/dL Protein, Total 6.7 g/dL Albumin 3.6 g/dL Globulin 3.1 g/dL Bilirubin, Total 0.2 mg/dL ALT (SGPT) 15 U/L AST (SGOT) 10 U/L Alkaline Phosphatase 59 IU/L WBC 16.9 10 3/uL RBC 3.48 10 6/uL HGB 11.7 g/dL HCT 34.4 % MCV 98.9 fl MCH 33.6 pg MCHC 34.0 g/dL RDW 12.8 % Platelet Count 319 10 3/cmm MPV 10.2 fL Neutrophils 14.21 10 3/uL Lymphocytes 1.4 10 3/uL Monocytes 1.0 10 3/uL Eosinophils 0.0 10 3/uL Basophils 0.0 10 3/uL Neutrophil % 84.0 % Lymphocyte % 8.4 % Monocyte % 6.1 % Eosinophil % 0.0 % Basophils % 0.2 % NRBC % 0 % Test performed on Nov 18, 2020 08:50 BUN/Creatinine Ratio 8 Absolute Value A/G Ratio 1.7 Absolute Value Manual Bands 2 % Manual Lymphocytes 23 % Manual Monocytes 11 % Manual Eosinophils 1 % Manual Basophils 0 % Platelet Estimate adequate Impression: Invasive ductal carcinoma involving right breast per ultrasound guided biopsy done on September 23, 2020, as per pathology report shows ER negative MD negative, HER-2/bola 3+ positive by IHC , FISH Also confirmed, with very high Ki-67, at 90% CT PET scan done on September 04, 2020 showed 1.4 x 1.0 cm central right breast lesion with SUV of 15.9 and multiple right axillary lymph nodes positive with SUV of 2.9.1 measuring 2.5 [address] length., CT PET scan was done to confirm abnormal findings seen on CT scan of chest for follow-up for history of lung cancer which was diagnosed in 2013 at that time she underwent resection only no further treatment was offered because of her early stage disease. History of lung cancer, diagnosed in 2013, as per patient underwent resection no further treatment was offered COPD Chronic smoking Plan/Problems Addressed at this Visit: 1. Invasive ductal carcinoma involving the right breast???ER MD negative HER-2/bola 3+ positive by IHC and FISH. Ki 67 is high at 90%. She began chemotherapy with carboplatin Taxotere Perjeta Herceptin on November 01, 2020. Her first cycle was complicated with chemo therapy induced febrile neutropenia required admission. She received her second cycle of chemotherapy on November 29, 2020 at that time did receive growth factor support with Neulasta. She is tolerating it well thus far. A. Continue with cycle 2 plan of care. This is day 8. B. Labs from December 06, 2020 were reviewed in detail and discussed with Ms. Willams and a copy was given to her. WBCs were 11 her hemoglobin was 11.8 platelets 157,000 ANC is 5370. Potassium 3.8 random glucose 78 creatinine 0.6 and LFTs are normal. B. She will return in 1 week for interim counts monitoring her neutrophils as she obviously had chemo induced neutropenia with cycle 1. Thus far she is holding well on her blood counts. C. We will plan to see her back in 2 weeks with CBC CMP at which time she will be due for cycle 3 carboplatin, docetaxel, Herceptin/Perjeta. D. She did have baseline echocardiogram on 10/06/2020 which reported her LVEF at 55% there was no diagnostic regional wall motion abnormalities identified on that exam. She will be due for follow-up limited echocardiogram to assess her LVEF in December 2020 for monitoring of the Herceptin/Perjeta. Signed By: Gila Piper-, [facility] Ariana Ness MD <<Signature on File>>
[2020-12-17 11:16] LABS: Basophils # 0.1 10^3/uL (0.0-0.1); Basophils % 0.9 %; Hematocrit 30.5 % (37.0-47.0); Lymphocytes # 1.9 10^3/uL (0.8-4.8); Lymphocytes % 25.8 %; Mean Corpuscular HGB Conc 32.8 g/dL (30.0-36.0); Mean Corpuscular Hemoglobin 32.9 pg (28.0-34.0); Mean Corpuscular Volume 100.3 fl (81-99); Monocytes # 0.8 10^3/uL (0.2-0.9); Monocytes % 10.3 %; Neutrophils # 4.49 10^3/uL (1.8-7.7); Neutrophils % 59.8 %; Nucleated Red Blood Cells % 0 %; Platelet Count 162 10^3/cmm (130-400); Red Blood Count 3.04 10^6/uL (4.1-5.3); Red Cell Distribution Width 13.6 % (12.1-15.1); White Blood Count 7.5 10^3/uL (4.0-10.0)
[2020-12-17 11:42] LABS: Alanine Aminotransferase 11 U/L (0-33); Albumin Level 3.5 g/dL (3.5-5.2); Alkaline Phosphatase 62 IU/L (35-105); Anion Gap 14.8 (5-19); Aspartate Amino Transferase 12 U/L (0-32); Blood Urea Nitrogen 7 mg/dL (8-23); Carbon Dioxide 24 mmol/L (22-29); Chloride 104 mmol/L (98-107); Globulin 2.4 g/dL (1.3-4.6); Glomerular Filtration Rate 100.3 mL/min (90-130); Glucose 131 mg/dL (65-115); Osmolality Calculated 288 mOsm/kg (285-295); Potassium 3.8 mmol/L (3.5-5.1); Sodium 139 mmol/L (136-145); Total Bilirubin 0.2 mg/dL (0.15-1.2); Total Protein 5.9 g/dL (6.6-8.7)
== END 2020-12-19 23:59 | disposition home or self-care (01) ==
LOC: ONCMED 06:14
PROVIDERS: PCP Family Medicine; Visit Provider Internal Medicine Hematology & Oncology
DX: Z51.11 Encounter for antineoplastic chemotherapy (principal); C50.811 Malignant neoplasm of overlapping sites of right female breast; Z17.1 Estrogen receptor negative status [ER-]; J44.9 Chronic obstructive pulmonary disease, unspecified; F17.210 Nicotine dependence, cigarettes, uncomplicated; Z85.118 Personal history of other malignant neoplasm of bronchus and lung; Z79.899 Other long term (current) drug therapy
CPT/HCPCS: 36591; 80053; 85025; 96360; 96367; 96372; 96375; 96413; 96417; 99214; J1100; J1200; J1453; J2469; J2505; J7030; J7050; J9045; J9171; J9306; J9355

== ENCOUNTER 2021-01-10 06:21 | Outpatient (RCR) | payer MEDICARE, SELFPAY ==
[2020-12-20] MEDS: acetaminophen 325 mg Tablet 650 MG PO (11:15)
[2020-12-20] MEDS: famotidine 20 mg Tablet PO (11:15)
[2020-12-20] MEDS: diphenhydrAMINE 50 mg/mL SDV 1mL 25 MG IV (11:15)
[2020-12-20] MEDS: sodium chloride 0.9% 250 ML 75 ML IV ×2 (11:15→13:55)
[2020-12-20] MEDS: palonosetron 0.25 mg/5 mL SDV IV (11:19)
[2020-12-20] MEDS: fosaprepitant 150 MG in sodium chloride 0.9% 150 ML 300 MG IV (11:37)
[2020-12-21] MEDS: sodium chloride 0.9% 1,000 ML 999 ML IV (15:20)
[2020-12-29] MEDS: sodium chloride 0.9% 1,000 ML 999 ML IV (13:33)
[2020-12-31 09:30] LABS: Basophils # 0.1 10^3/uL (0.0-0.1); Basophils % 0.8 %; Hematocrit 29.5 % (37.0-47.0); Hemoglobin 10.1 g/dL (11.5-15.3); Lymphocytes # 1.7 10^3/uL (0.8-4.8); Lymphocytes % 16.4 %; Mean Corpuscular HGB Conc 34.2 g/dL (30.0-36.0); Mean Corpuscular Hemoglobin 32.5 pg (28.0-34.0); Mean Corpuscular Volume 94.9 fl (81-99); Mean Platelet Volume 11.1 fL (7.4-10.4); Monocytes # 0.8 10^3/uL (0.2-0.9); Monocytes % 7.1 %; Neutrophils % 73.6 %; Nucleated Red Blood Cells % 0 %; Platelet Count 137 10^3/cmm (130-400); Red Blood Count 3.11 10^6/uL (4.1-5.3); Red Cell Distribution Width 13.2 % (12.1-15.1); White Blood Count 10.6 10^3/uL (4.0-10.0)
[2020-12-31 09:33] LABS: Alanine Aminotransferase 14 U/L (0-33); Albumin Level 3.8 g/dL (3.5-5.2); Alkaline Phosphatase 89 IU/L (35-105); Anion Gap 18.9 (5-19); Aspartate Amino Transferase 13 U/L (0-32); Blood Urea Nitrogen 6 mg/dL (8-23); Calcium 8.7 mg/dL (8.5-10.5); Carbon Dioxide 20 mmol/L (22-29); Chloride 95 mmol/L (98-107); Globulin 2.6 g/dL (1.3-4.6); Glucose 140 mg/dL (65-115); Osmolality Calculated 272 mOsm/kg (285-295); Sodium 131 mmol/L (136-145); Total Bilirubin 0.3 mg/dL (0.15-1.2); Total Protein 6.4 g/dL (6.6-8.7)
[2020-12-31 09:42] LABS: Potassium 2.9 mmol/L (3.5-5.1)
[2020-12-31] MEDS: sodium chlor 0.9% + KCl 20 mEq 20 MEQ/1,000 ML BAG 500 MEQ IV (10:05)
[2020-12-31 10:35] LABS: Magnesium 1.4 mg/dL (1.7-2.3)
[2021-01-07 09:56] LABS: Basophils % 0.4 %; Hematocrit 25.1 % (37.0-47.0); Hemoglobin 8.7 g/dL (11.5-15.3); Lymphocytes # 1.9 10^3/uL (0.8-4.8); Lymphocytes % 24.8 %; Mean Corpuscular HGB Conc 34.7 g/dL (30.0-36.0); Mean Corpuscular Hemoglobin 33.9 pg (28.0-34.0); Mean Corpuscular Volume 97.7 fl (81-99); Mean Platelet Volume 10.2 fL (7.4-10.4); Monocytes # 0.7 10^3/uL (0.2-0.9); Monocytes % 9.2 %; Neutrophils # 4.76 10^3/uL (1.8-7.7); Neutrophils % 61.3 %; Nucleated Red Blood Cells % 0 %; Platelet Count 85 10^3/cmm (130-400); Red Blood Count 2.57 10^6/uL (4.1-5.3); Red Cell Distribution Width 14.7 % (12.1-15.1); White Blood Count 7.8 10^3/uL (4.0-10.0)
[2021-01-07 10:24] LABS: Alanine Aminotransferase 14 U/L (0-33); Albumin Level 3.6 g/dL (3.5-5.2); Alkaline Phosphatase 66 IU/L (35-105); Anion Gap 15.9 (5-19); Aspartate Amino Transferase 15 U/L (0-32); Blood Urea Nitrogen 5 mg/dL (8-23); Carbon Dioxide 24 mmol/L (22-29); Chloride 102 mmol/L (98-107); Globulin 2.2 g/dL (1.3-4.6); Glucose 133 mg/dL (65-115); Osmolality Calculated 285 mOsm/kg (285-295); Potassium 3.9 mmol/L (3.5-5.1); Sodium 138 mmol/L (136-145); Total Bilirubin 0.2 mg/dL (0.15-1.2); Total Protein 5.8 g/dL (6.6-8.7)
[2021-01-07 10:35] LABS: Slide Review Slide Review Perform
--- NOTE | 2021-01-12 17:38 | ONC FU_ITS ---
Dr. Ness follow up note Patient: Chioma Willams Unit #: [id number]: 1955 Dicatated By: Ariana Ness M.D.Date of Visit:Jan 10, 2021 Onc Med Follow-up/Prog Note History of Present Illness: Ms. Willams is a 65-year-old female with a history of lung cancer originally diagnosed in 2003. At that time she underwent resection and as per patient, she was not offered any further treatment as it was a early stage disease. She also has history of COPD and chronic smoking. During her routine follow-up for lung cancer, she underwent CT scan of the chest on September 01, 2020. This reported fibrotic appearing spiculated opacity in the left upper lobe anteriorly measuring 1.9 x 1.2 cm. Additional fibrotic appearing spiculated subpleural opacity in the left upper lobe along the fissure posteriorly abutting pleura measured 1.4 x 1.2 cm. Additional indeterminant small spiculated opacity right upper lobe measuring 5 mm. Ms Willams then underwent CT PET imaging on September 04, 2020. This reported a 1.6 cm solid linear nodule in the left upper lobe with SUV of 1.8, most suggestive of benign scarring. But there was incidental finding showing FDG uptake in the central RIGHT breast. There was a solid 1.4 x 1.0 cm parenchymal lesion with SUV of 15.9, has a high probability of breast primary. Also noted were multiple right axillary lymph nodes FDG positive with SUV up to 9.1 measuring up to 2.5 cm in length. Left breast and axilla unremarkable. Patient underwent mammogram on September 23, 2020 which showed a high density mass measuring 1.7 x 1.5 cm in the inferior medial right breast there is also adjacent skin thickening and volume loss in the right breast. Single mildly prominent lymph node in the right axilla. On September 23, 2020 she underwent ultrasound-guided right breast biopsy which confirmed invasive ductal carcinoma lymphovascular invasion seen, as per discussion with Dr. Nolasco pathologist her tumor is ER/NC negative and HER-2/bola 3+ positive by IHC, FISH Confirmed it, Ki-67 90%. Patient has history of COPD, and still smoking actively. Denies alcohol use. Ms Willams was referred to us for consulatation and treatment of her breast cancer. She was started on neoadjuvant therapy with carboplatin/Taxotere/Perjeta/Herceptin on November 01, 2020. She did develop neutropenic fever after her first cycle of chemotherapy requiring admissin to the hospital. She was treated with parenteral antibiotics and supportive care and recovered well. She received her second cycle with Neulasta support on November 29, 2020 Came for follow-up, denies any specific complaint except generalized weakness and fatigue, no nausea or vomiting, no diarrhea constipation, no melena or hematochezia, no jaundice, no new bony pains, as per patient her right breast mass has improved significantly and do not feel anything in her right axilla either., Tolerating neoadjuvant chemotherapy with carboplatin/Taxotere/Perjeta/Herceptin well Medications: Albuterol Sulfate 2 Puff(s) (of 108 (90 base) mcg/act) Aerosol Powder, Breath Activated Inhalation PRN Allergies: No Known Allergies. Review of Systems: Review of Systems is not available for this patient. Vital Signs: Performed on Jan 10, 2021 09:07 Height - 67.00 in Weight - 146.6 lbs (HIGH) BSA - 1.77 sq.m BMI - 22.96 Temperature - 99.2 F (HIGH) Pulse - 99 /min Respiration - 18 /min BP - 124/76 mm(hg) O2 Sat - 96 % Pain - 7 Fatigue - 0 Performance Status: 0 - Fully active, able to carry on all predisease activities without restrictions. (ECOG) Physical Examination: Respiratory - Lungs are clear to auscultation, Cardiovascular - Regular rate and rhythm of heart, Breasts - Right breast exam shows significant reduction in right breast mass, more than 50% and now soft in consistency, no right axillary lymph node palpable, Gastrointestinal - Soft, bowel sounds present, Extremities - No visible edema. Lab/Imaging: Test performed on Dec 17, 2020 10:46 Sodium 139 mmol/L Potassium 3.8 mmol/L Chloride 104 mmol/L CO2 24 mmol/L Anion Gap 14.8 BUN 7 mg/dL Creatinine 0.6 mg/dL Cr Clearance (Est) 97.8600 mL/min eGFR 100.3 mL/min Glucose 131 mg/dL Osmolality - Calculated 288 mOsm/kg Calcium 9.0 mg/dL Protein, Total 5.9 g/dL Albumin 3.5 g/dL Globulin 2.4 g/dL Bilirubin, Total 0.2 mg/dL ALT (SGPT) 11 U/L AST (SGOT) 12 U/L Alkaline Phosphatase 62 IU/L WBC 7.5 10 3/uL RBC 3.04 10 6/uL HGB 10.0 g/dL HCT 30.5 % MCV 100.3 fl MCH 32.9 pg MCHC 32.8 g/dL RDW 13.6 % Platelet Count 162 10 3/cmm MPV 10.0 fL Neutrophils 4.49 10 3/uL Lymphocytes 1.9 10 3/uL Monocytes 0.8 10 3/uL Eosinophils 0.0 10 3/uL Basophils 0.1 10 3/uL Neutrophil % 59.8 % Lymphocyte % 25.8 % Monocyte % 10.3 % Eosinophil % 0.0 % Basophils % 0.9 % NRBC % 0 % Test performed on Nov 18, 2020 08:50 BUN/Creatinine Ratio 8 Absolute Value A/G Ratio 1.7 Absolute Value Manual Bands 2 % Manual Lymphocytes 23 % Manual Monocytes 11 % Manual Eosinophils 1 % Manual Basophils 0 % Platelet Estimate adequate Impression: Invasive ductal carcinoma involving right breast per ultrasound guided biopsy done on September 23, 2020, as per pathology report shows ER negative NC negative, HER-2/bola 3+ positive by IHC , FISH Also confirmed, with very high Ki-67, at 90% CT PET scan done on September 04, 2020 showed 1.4 x 1.0 cm central right breast lesion with SUV of 15.9 and multiple right axillary lymph nodes positive with SUV of 2.9.1 measuring 2.5 cm in length., CT PET scan was done to confirm abnormal findings seen on CT scan of chest for follow-up for history of lung cancer which was diagnosed in 2013 at that time she underwent resection only no further treatment was offered because of her early stage disease. History of lung cancer, diagnosed in 2013, as per patient underwent resection no further treatment was offered COPD Chronic smoking Plan: Discussed with patient regarding her labs white blood count 7.8 hemoglobin 8.7 hematocrit 25.1 platelets 85,000 compared to 237,000 last week ANC 4760 Clinically, patient doing reasonably well, tolerating neoadjuvant chemotherapy with Herceptin/Perjeta/carboplatin/docetaxel well but with expected side effect e.g. progressive bone marrow suppression especially anemia and thrombocytopenia, will hold her chemotherapy due to progressive moderate thrombocytopenia and repeat CBC in 1 week if platelet count recover, and her follow-up echocardiogram shows no significant change in ejection fraction, will proceed with cycle #4 with neoadjuvant chemotherapy, on exam it shows excellent response to the neoadjuvant chemotherapy, no evidence of right axillary lymphadenopathy and right breast exam shows more than 50% reduction in mass and soft in consistency., Will also discuss with surgery as if patient develop progressive and prolonged bone marrow suppression due to neoadjuvant chemotherapy which may delay her treatment, in that case we might consider stopping her neoadjuvant chemotherapy after fourth cycle and proceed with surgery. Return to clinic in 1 week with CBC and echocardiogram, If reasonable for fourth cycle of neoadjuvant chemotherapy/Herceptin/Perjeta Signed By: Ariana Ness M.D. <<Signature on File>>
== END 2021-01-12 07:00 | disposition home or self-care (01) ==
LOC: ONCMED 06:21
PROVIDERS: PCP Family Medicine; Visit Provider Internal Medicine Hematology & Oncology
DX: Z51.11 Encounter for antineoplastic chemotherapy (principal); C50.811 Malignant neoplasm of overlapping sites of right female breast; Z17.1 Estrogen receptor negative status [ER-]; J44.9 Chronic obstructive pulmonary disease, unspecified; F17.210 Nicotine dependence, cigarettes, uncomplicated; Z85.118 Personal history of other malignant neoplasm of bronchus and lung; Z79.899 Other long term (current) drug therapy; Z90.2 Acquired absence of lung [part of]
CPT/HCPCS: 36591; 80053; 83735; 85025; 96360; 96365; 96366; 96367; 96372; 96375; 96413; 96417; 99214; J1100; J1200; J1453; J2469; J2505; J7030; J7050; J9045; J9171; J9306; J9355

== ENCOUNTER 2021-01-12 07:42 | Outpatient (CLI) | payer MEDICARE, SELFPAY ==
--- NOTE | 2021-01-12 07:45 | USCV_ITS ---
Chioma Willams Age: 65 Gender: F : 1955 Exam Date: 01/12/2021 08:16 Ordering Phys: Ariana Ness MD Technologist: KARAN [place]am [place] [facility] [place]: FOLLOW UP POST CHEMO/BREAST CANCER BP: 125 / 75 HR: 73 Rhythm: Sinus Technical Quality: Adequate MEASUREMENTS (Male / Female) Normal Values 2D ECHO LV Diastolic Diameter PLAX 4.1 cm 4.2 - 5.9 / 3.9 - 5.3 cm LV Systolic Diameter PLAX 2.9 cm IVS Diastolic Thickness 1.1 cm 0.6 - 1.0 / 0.6 - 0.9 cm IVS Systolic Thickness 1.1 cm LVPW Diastolic Thickness 0.8 cm 0.6 - 1.0 / 0.6 - 0.9 cm LVPW Systolic Thickness 1.5 cm RV Chamber Size 2.4 cm LVOT Diameter 2.0 cm LV Ejection Fraction 2D Teich 55.1 % LV Ejection Fraction MOD 2C 57.1 % LV Ejection Fraction 2C AL 57.2 % LA Diameter 2.8 cm LA Width 2.7 cm LA Height 2.7 cm RA Width 2.5 cm RA Height 3.1 cm Aorta at Sinotubular Diameter 2.4 cm FINDINGS Left Ventricle Normal left ventricular cavity size. Normal left ventricular systolic function. No regional wall motion abnormalities. Left ventricular ejection fraction is estimated at 60 %. Right Ventricle Right Atrium Left Atrium Mitral Valve Aortic Valve Tricuspid Valve Pulmonic Valve Pericardium Aorta CONCLUSIONS 1-Normal left ventricular cavity size. Normal left ventricular systolic function. No regional wall motion abnormalities. Left ventricular ejection fraction is estimated at 60 %. 2-There is no pericardial effusion. 3-This is a limited echo to assess LV function, left ventricle ejection fraction has not changed from the prior echo and it remains normal. Mateusz Simon MD (Electronically Signed) Final Date: 12 January 2021 19:51 S
== END 2021-01-12 07:43 | disposition home or self-care (01) ==
PROVIDERS: PCP Family Medicine; Visit Provider Internal Medicine Hematology & Oncology
DX: C50.811 Malignant neoplasm of overlapping sites of right female breast (principal); Z79.899 Other long term (current) drug therapy
CPT/HCPCS: 93308

== ENCOUNTER 2021-01-18 08:37 | Outpatient (RCR) | payer MEDICARE, SELFPAY ==
[2021-01-17 08:57] LABS: Basophils % 0.3 %; Hematocrit 27.4 % (37.0-47.0); Hemoglobin 9.6 g/dL (11.5-15.3); Lymphocytes # 1.5 10^3/uL (0.8-4.8); Lymphocytes % 9.6 %; Mean Corpuscular Hemoglobin 34.5 pg (28.0-34.0); Mean Corpuscular Volume 98.6 fl (81-99); Monocytes # 1.1 10^3/uL (0.2-0.9); Monocytes % 6.9 %; Neutrophils # 12.64 10^3/uL (1.8-7.7); Neutrophils % 81.8 %; Nucleated Red Blood Cells % 0 %; Platelet Count 410 10^3/cmm (130-400); Red Blood Count 2.78 10^6/uL (4.1-5.3); Red Cell Distribution Width 15.6 % (12.1-15.1); White Blood Count 15.5 10^3/uL (4.0-10.0)
[2021-01-17 09:39] LABS: Ferritin 483 ng/mL (15-150); Iron 90 ug/dL (37-145); Percent Saturation 30.6 % (20-50); Total Iron Binding Capacity 294 mcg/dl; Unsaturated Iron Binding 204 ug/dL (112-347); Vitamin B12 1994 pg/mL (232-1245)
[2021-01-17 09:46] LABS: Folate Level 15.1 ng/mL (4.8-37.3)
[2021-01-17] MEDS: sodium chloride 0.9% 250 ML 75 ML IV (11:00)
[2021-01-17] MEDS: famotidine 20 mg Tablet PO (11:03)
[2021-01-17] MEDS: acetaminophen 325 mg Tablet 650 MG PO (11:03)
[2021-01-17] MEDS: diphenhydrAMINE 50 mg/mL SDV 1mL 25 MG IV (11:04)
[2021-01-17] MEDS: palonosetron 0.25 mg/5 mL SDV IV (11:06)
[2021-01-17] MEDS: fosaprepitant 150 MG in sodium chloride 0.9% 150 ML 300 MG IV (11:36)
[2021-01-18] MEDS: pegfilgrastim-bmez 6 mg/0.6 mL SYR SUBCUT (09:17)
--- NOTE | 2021-01-21 12:11 | ONC FU_ITS ---
Dr. Ness follow up note Patient: Chioma Willams Unit #: [id number]: 1955 Dicatated By: Ariana Ness M.D.Date of Visit:Jan 17, 2021 Onc Med Follow-up/Prog Note History of Present Illness: Ms. Willams is a 65-year-old female with a history of lung cancer originally diagnosed in 2003. At that time she underwent resection and as per patient, she was not offered any further treatment as it was a early stage disease. She also has history of COPD and chronic smoking. During her routine follow-up for lung cancer, she underwent CT scan of the chest on September 01, 2020. This reported fibrotic appearing spiculated opacity in the left upper lobe anteriorly measuring 1.9 x 1.2 cm. Additional fibrotic appearing spiculated subpleural opacity in the left upper lobe along the fissure posteriorly abutting pleura measured 1.4 x 1.2 cm. Additional indeterminant small spiculated opacity right upper lobe measuring 5 mm. Ms Willams then underwent CT PET imaging on September 04, 2020. This reported a 1.6 cm solid linear nodule in the left upper lobe with SUV of 1.8, most suggestive of benign scarring. But there was incidental finding showing FDG uptake in the central RIGHT breast. There was a solid 1.4 x 1.0 cm parenchymal lesion with SUV of 15.9, has a high probability of breast primary. Also noted were multiple right axillary lymph nodes FDG positive with SUV up to 9.1 measuring up to 2.5 cm in length. Left breast and axilla unremarkable. Patient underwent mammogram on September 23, 2020 which showed a high density mass measuring 1.7 x 1.5 cm in the inferior medial right breast there is also adjacent skin thickening and volume loss in the right breast. Single mildly prominent lymph node in the right axilla. On September 23, 2020 she underwent ultrasound-guided right breast biopsy which confirmed invasive ductal carcinoma lymphovascular invasion seen, as per discussion with Dr. Nolasco pathologist her tumor is ER/[place] negative and HER-2/bola 3+ positive by IHC, FISH Confirmed it, Ki-67 90%. Patient has history of COPD, and still smoking actively. Denies alcohol use. Ms Willams was referred to us for consulatation and treatment of her breast cancer. She was started on neoadjuvant therapy with carboplatin/Taxotere/Perjeta/Herceptin on November 01, 2020. She did develop neutropenic fever after her first cycle of chemotherapy requiring admissin to the hospital. She was treated with parenteral antibiotics and supportive care and recovered well. She received her second cycle with Neulasta support on November 29, 2020 Echocardiogram done After 3 cycles on January 12, 2021 shows ejection fraction 60% Came for follow-up, denies any specific complaints, no fever chills, no nausea or vomiting, no diarrhea constipation, no shortness of breath or palpitation, no lower extremity edema, no more diarrhea, Tolerating neoadjuvant chemotherapy with carboplatin/Taxotere/Perjeta/Herceptin well Medications: Albuterol Sulfate 2 Puff(s) (of 108 (90 base) mcg/act) Aerosol Powder, Breath Activated Inhalation PRN Allergies: No Known Allergies. Review of Systems: Review of Systems is not available for this patient. Vital Signs: Performed on Jan 17, 2021 11:18 Height - 67.00 in Weight - 143.8 lbs (LOW) BSA - 1.76 sq.m BMI - 22.52 Temperature - 97.2 F (LOW) Pulse - 78 /min Respiration - 16 /min BP - 157/76 mm(hg) (HIGH) O2 Sat - 98 % Pain - 0 Fatigue - 0 Performance Status: 0 - Fully active, able to carry on all predisease activities without restrictions. (ECOG) Physical Examination: Respiratory - Lungs are clear to auscultation, Cardiovascular - Regular rate and rhythm of heart, Gastrointestinal - Soft, bowel sounds present, Extremities - No visible edema. Lab/Imaging: Test performed on Jan 17, 2021 10:27 Creatinine 0.8 mg/dL Cr Clearance (Est) 73.40 mL/min Test performed on Dec 17, 2020 10:46 Sodium 139 mmol/L Potassium 3.8 mmol/L Chloride 104 mmol/L CO2 24 mmol/L Anion Gap 14.8 BUN 7 mg/dL eGFR 100.3 mL/min Glucose 131 mg/dL Osmolality - Calculated 288 mOsm/kg Calcium 9.0 mg/dL Protein, Total 5.9 g/dL Albumin 3.5 g/dL Globulin 2.4 g/dL Bilirubin, Total 0.2 mg/dL ALT (SGPT) 11 U/L AST (SGOT) 12 U/L Alkaline Phosphatase 62 IU/L WBC 7.5 10 3/uL RBC 3.04 10 6/uL HGB 10.0 g/dL HCT 30.5 % MCV 100.3 fl MCH 32.9 pg MCHC 32.8 g/dL RDW 13.6 % Platelet Count 162 10 3/cmm MPV 10.0 fL Neutrophils 4.49 10 3/uL Lymphocytes 1.9 10 3/uL Monocytes 0.8 10 3/uL Eosinophils 0.0 10 3/uL Basophils 0.1 10 3/uL Neutrophil % 59.8 % Lymphocyte % 25.8 % Monocyte % 10.3 % Eosinophil % 0.0 % Basophils % 0.9 % NRBC % 0 % Test performed on Nov 18, 2020 08:50 BUN/Creatinine Ratio 8 Absolute Value A/G Ratio 1.7 Absolute Value Manual Bands 2 % Manual Lymphocytes 23 % Manual Monocytes 11 % Manual Eosinophils 1 % Manual Basophils 0 % Platelet Estimate adequate Impression: Invasive ductal carcinoma involving right breast per ultrasound guided biopsy done on September 23, 2020, as per pathology report shows ER negative WY negative, HER-2/bola 3+ positive by IHC , FISH Also confirmed, with very high Ki-67, at 90% CT PET scan done on September 04, 2020 showed 1.4 x 1.0 cm central right breast lesion with SUV of 15.9 and multiple right axillary lymph nodes positive with SUV of 2.9.1 measuring 2.5 cm in length., CT PET scan was done to confirm abnormal findings seen on CT scan of chest for follow-up for history of lung cancer which was diagnosed in 2013 at that time she underwent resection only no further treatment was offered because of her early stage disease. History of lung cancer, diagnosed in 2013, as per patient underwent resection no further treatment was offered COPD Chronic smoking Plan: Discussed with patient regarding her labs white blood count15.5, hemoglobin 9.6 hematocrit 27.4 platelets 410,000, iron saturation 30.6, ferritin 43, folic acid 15.1 iron 90 B12 1994 Clinically, patient doing well with no signs symptoms, tolerating neoadjuvant chemotherapy with carboplatin/docetaxel/Perjeta/Herceptin well, will proceed with cycle #4 today and then she will return to clinic in 2 weeks with CBC CMP and patient is already scheduled to see surgery in the morning, will discuss regarding timing of surgery, As far as anemia is concerned, her anemia work-up was inconclusive so could be due to chemotherapy, will continue to monitor Return to clinic in 2 weeks with CBC CMP Signed By: Ariana Ness M.D. <<Signature on File>>
== END 2021-01-18 23:59 | disposition home or self-care (01) ==
LOC: ONCMED 08:37
PROVIDERS: PCP Family Medicine; Visit Provider Internal Medicine Hematology & Oncology
DX: Z51.11 Encounter for antineoplastic chemotherapy (principal); C50.811 Malignant neoplasm of overlapping sites of right female breast; Z17.1 Estrogen receptor negative status [ER-]; J44.9 Chronic obstructive pulmonary disease, unspecified; F17.210 Nicotine dependence, cigarettes, uncomplicated; Z85.118 Personal history of other malignant neoplasm of bronchus and lung; Z79.899 Other long term (current) drug therapy
CPT/HCPCS: 82607; 82728; 82746; 83540; 83550; 85025; 96367; 96372; 96375; 96413; 96417; 99215; J1100; J1200; J1453; J2469; J7050; J9045; J9171; J9306; J9355; Q5120

== ENCOUNTER 2021-02-07 06:20 | Outpatient (RCR) | payer MEDICARE, SELFPAY ==
[2021-01-31 08:26] LABS: Basophils % 0.6 %; Eosinophils % 0.1 %; Hematocrit 25.7 % (37.0-47.0); Hemoglobin 8.8 g/dL (11.5-15.3); Lymphocytes # 1.7 10^3/uL (0.8-4.8); Lymphocytes % 23.6 %; Mean Corpuscular HGB Conc 34.2 g/dL (30.0-36.0); Mean Corpuscular Hemoglobin 34.5 pg (28.0-34.0); Mean Corpuscular Volume 100.8 fl (81-99); Mean Platelet Volume 10.1 fL (7.4-10.4); Monocytes # 0.5 10^3/uL (0.2-0.9); Monocytes % 7.5 %; Neutrophils # 4.73 10^3/uL (1.8-7.7); Neutrophils % 66.6 %; Nucleated Red Blood Cells % 0 %; Platelet Count 90 10^3/cmm (130-400); Red Blood Count 2.55 10^6/uL (4.1-5.3); Red Cell Distribution Width 15.5 % (12.1-15.1); White Blood Count 7.1 10^3/uL (4.0-10.0)
[2021-01-31 08:44] LABS: Alanine Aminotransferase 10 U/L (0-33); Albumin Level 3.8 g/dL (3.5-5.2); Alkaline Phosphatase 71 IU/L (35-105); Anion Gap 13.4 (5-19); Aspartate Amino Transferase 12 U/L (0-32); Blood Urea Nitrogen 6 mg/dL (8-23); Calcium 8.5 mg/dL (8.5-10.5); Carbon Dioxide 23 mmol/L (22-29); Chloride 101 mmol/L (98-107); Globulin 2.2 g/dL (1.3-4.6); Glucose 102 mg/dL (65-115); Osmolality Calculated 276 mOsm/kg (285-295); Potassium 3.4 mmol/L (3.5-5.1); Sodium 134 mmol/L (136-145); Total Bilirubin 0.2 mg/dL (0.15-1.2)
--- NOTE | 2021-01-31 17:20 | ONC FU_ITS ---
Dr. Ness follow up note Patient: Chioma Willams Unit #: [id number]: 1955 Dicatated By: Ariana Ness M.D.Date of Visit:Jan 31, 2021 Onc Med Follow-up/Prog Note History of Present Illness: Ms. Willams is a 65-year-old female with a history of lung cancer originally diagnosed in 2003. At that time she underwent resection and as per patient, she was not offered any further treatment as it was a early stage disease. She also has history of COPD and chronic smoking. During her routine follow-up for lung cancer, she underwent CT scan of the chest on September 01, 2020. This reported fibrotic appearing spiculated opacity in the left upper lobe anteriorly measuring 1.9 x 1.2 cm. Additional fibrotic appearing spiculated subpleural opacity in the left upper lobe along the fissure posteriorly abutting pleura measured 1.4 x 1.2 cm. Additional indeterminant small spiculated opacity right upper lobe measuring 5 mm. Ms Willams then underwent CT PET imaging on September 04, 2020. This reported a 1.6 cm solid linear nodule in the left upper lobe with SUV of 1.8, most suggestive of benign scarring. But there was incidental finding showing FDG uptake in the central RIGHT breast. There was a solid 1.4 x 1.0 cm parenchymal lesion with SUV of 15.9, has a high probability of breast primary. Also noted were multiple right axillary lymph nodes FDG positive with SUV up to 9.1 measuring up to 2.5 cm in length. Left breast and axilla unremarkable. Patient underwent mammogram on September 23, 2020 which showed a high density mass measuring 1.7 x 1.5 cm in the inferior medial right breast there is also adjacent skin thickening and volume loss in the right breast. Single mildly prominent lymph node in the right axilla. On September 23, 2020 she underwent ultrasound-guided right breast biopsy which confirmed invasive ductal carcinoma lymphovascular invasion seen, as per discussion with Dr. Nolasco pathologist her tumor is ER/[place] negative and HER-2/bola 3+ positive by IHC, FISH Confirmed it, Ki-67 90%. Patient has history of COPD, and still smoking actively. Denies alcohol use. Ms Willams was referred to us for consulatation and treatment of her breast cancer. She was started on neoadjuvant therapy with carboplatin/Taxotere/Perjeta/Herceptin on November 01, 2020. She did develop neutropenic fever after her first cycle of chemotherapy requiring admissin to the hospital. She was treated with parenteral antibiotics and supportive care and recovered well. She received her second cycle with Neulasta support on November 29, 2020 Echocardiogram done After 3 cycles on January 12, 2021 shows ejection fraction 60% Came for follow-up, denies any specific complaints, no fever chills, no nausea or vomiting, no diarrhea constipation, no melena or hematochezia, no hemoptysis hematemesis, no new bony pains, no jaundice, patient has seen surgery for evaluation, now considering mastectomy Medications: Albuterol Sulfate 2 Puff(s) (of 108 (90 base) mcg/act) Aerosol Powder, Breath Activated Inhalation PRN Allergies: No Known Allergies. Review of Systems: Review of Systems is not available for this patient. Vital Signs: Performed on Jan 31, 2021 16:53 Height - 67.00 in Weight - 140.8 lbs (LOW) BSA - 1.74 sq.m BMI - 22.05 Temperature - 98.0 F (LOW) Pulse - 85 /min Respiration - 18 /min BP - 109/69 mm(hg) O2 Sat - 99 % Pain - 0 Fatigue - 0 Performance Status: 0 - Fully active, able to carry on all predisease activities without restrictions. (ECOG) Physical Examination: Respiratory - Lungs are clear to auscultation, Cardiovascular - Regular rate and rhythm of heart, Gastrointestinal - Soft, bowel sounds present, Extremities - No visible edema or rash. Lab/Imaging: Test performed on Jan 17, 2021 10:27 Creatinine 0.8 mg/dL Cr Clearance (Est) 73.40 mL/min Test performed on Dec 17, 2020 10:46 Sodium 139 mmol/L Potassium 3.8 mmol/L Chloride 104 mmol/L CO2 24 mmol/L Anion Gap 14.8 BUN 7 mg/dL eGFR 100.3 mL/min Glucose 131 mg/dL Osmolality - Calculated 288 mOsm/kg Calcium 9.0 mg/dL Protein, Total 5.9 g/dL Albumin 3.5 g/dL Globulin 2.4 g/dL Bilirubin, Total 0.2 mg/dL ALT (SGPT) 11 U/L AST (SGOT) 12 U/L Alkaline Phosphatase 62 IU/L WBC 7.5 10 3/uL RBC 3.04 10 6/uL HGB 10.0 g/dL HCT 30.5 % MCV 100.3 fl MCH 32.9 pg MCHC 32.8 g/dL RDW 13.6 % Platelet Count 162 10 3/cmm MPV 10.0 fL Neutrophils 4.49 10 3/uL Lymphocytes 1.9 10 3/uL Monocytes 0.8 10 3/uL Eosinophils 0.0 10 3/uL Basophils 0.1 10 3/uL Neutrophil % 59.8 % Lymphocyte % 25.8 % Monocyte % 10.3 % Eosinophil % 0.0 % Basophils % 0.9 % NRBC % 0 % Test performed on Nov 18, 2020 08:50 BUN/Creatinine Ratio 8 Absolute Value A/G Ratio 1.7 Absolute Value Manual Bands 2 % Manual Lymphocytes 23 % Manual Monocytes 11 % Manual Eosinophils 1 % Manual Basophils 0 % Platelet Estimate adequate Impression: Invasive ductal carcinoma involving right breast per ultrasound guided biopsy done on September 23, 2020, as per pathology report shows ER negative CA negative, HER-2/bola 3+ positive by IHC , FISH Also confirmed, with very high Ki-67, at 90% CT PET scan done on September 04, 2020 showed 1.4 x 1.0 cm central right breast lesion with SUV of 15.9 and multiple right axillary lymph nodes positive with SUV of 2.9.1 measuring 2.5 cm in length., CT PET scan was done to confirm abnormal findings seen on CT scan of chest for follow-up for history of lung cancer which was diagnosed in 2013 at that time she underwent resection only no further treatment was offered because of her early stage disease. History of lung cancer, diagnosed in 2013, as per patient underwent resection no further treatment was offered COPD Chronic smoking Plan: Discussed with patient regarding her labs white blood count 7.1 hemoglobin 8.8 g compared to 9.6 previously hematocrit 25.7 platelets 90,000 CMP within normal limit except sodium 134 Clinically, patient is doing reasonably well with no new signs symptom, tolerating systemic therapy with carboplatin/docetaxel/Perjeta/Herceptin well, patient was evaluated by surgery recently and, as far as neoadjuvant chemotherapy is concerned, patient has completed 4 cycles of treatment and her physical exam shows significant improvement in her right breast mass, at this point we will continue and finish recommended neoadjuvant chemotherapy with a total 6 cycle prior to surgical evaluation, patient was advised that after 6 cycle of neoadjuvant therapy with carboplatin/docetaxel/Perjeta/Herceptin if it shows good response, she can consider lumpectomy with sentinel lymph node, followed by radiation oncology evaluation. Patient will return to clinic in 1 week with CBC and CMP if it shows resolution of mild thrombocytopenia, will consider proceeding with cycle #5/6 treatment with carboplatin/docetaxel/Perjeta/Herceptin. Signed By: Ariana Ness M.D. <<Signature on File>>
[2021-02-07 08:55] LABS: Basophils % 0.2 %; Hematocrit 26.7 % (37.0-47.0); Lymphocytes # 1.4 10^3/uL (0.8-4.8); Lymphocytes % 9.1 %; Mean Corpuscular HGB Conc 33.7 g/dL (30.0-36.0); Mean Corpuscular Hemoglobin 34.9 pg (28.0-34.0); Mean Corpuscular Volume 103.5 fl (81-99); Mean Platelet Volume 9.7 fL (7.4-10.4); Monocytes # 1.1 10^3/uL (0.2-0.9); Neutrophils # 12.66 10^3/uL (1.8-7.7); Nucleated Red Blood Cells % 0 %; Platelet Count 277 10^3/cmm (130-400); Red Blood Count 2.58 10^6/uL (4.1-5.3); Red Cell Distribution Width 16.4 % (12.1-15.1); White Blood Count 15.8 10^3/uL (4.0-10.0)
[2021-02-07 09:14] LABS: Alanine Aminotransferase 9 U/L (0-33); Albumin Level 3.8 g/dL (3.5-5.2); Alkaline Phosphatase 57 IU/L (35-105); Aspartate Amino Transferase 12 U/L (0-32); Blood Urea Nitrogen 10 mg/dL (8-23); Calcium 8.8 mg/dL (8.5-10.5); Carbon Dioxide 19 mmol/L (22-29); Chloride 102 mmol/L (98-107); Globulin 2.5 g/dL (1.3-4.6); Glucose 118 mg/dL (65-115); Osmolality Calculated 282 mOsm/kg (285-295); Sodium 136 mmol/L (136-145); Total Bilirubin 0.2 mg/dL (0.15-1.2); Total Protein 6.3 g/dL (6.6-8.7)
[2021-02-07 12:15] LABS: Add Urine Microscopic? NO; Charge for UA Resulting for Rev
[2021-02-07 12:16] LABS: Urine Color Straw (Yellow)
[2021-02-07 12:17] LABS: Bilirubin Urine Neg (Negative); Blood Urine Neg (Negative); Glucose Urine UA Norm (Normal); Ketones Urine Negative (Negative); Leukocyte Esterase Urine Negative (Negative); Nitrate Urine Negative (Negative); Protein Urine Neg (Negative); Specific Gravity, Urine 1.005 (1.005-1.030); Urine Appearance Clear (CLEAR); Urobilinogen Urine Norm (Negative); pH Urine 5 (5-7)
== END 2021-02-10 09:00 | disposition home or self-care (01) ==
LOC: ONCMED 06:20
PROVIDERS: Internal Medicine Hematology & Oncology; PCP Family Medicine; Visit Provider Nurse Practitioner Family
DX: C50.811 Malignant neoplasm of overlapping sites of right female breast (principal); Z17.1 Estrogen receptor negative status [ER-]; G62.0 Drug-induced polyneuropathy; T45.1X5A Adverse effect of antineoplastic and immunosuppressive drugs, initial encounter; Z85.118 Personal history of other malignant neoplasm of bronchus and lung; J44.9 Chronic obstructive pulmonary disease, unspecified; F17.210 Nicotine dependence, cigarettes, uncomplicated; D64.9 Anemia, unspecified; Z79.2 Long term (current) use of antibiotics; Z79.899 Other long term (current) drug therapy
CPT/HCPCS: 36591; 80053; 81003; 85025; 99214; 99215

== ENCOUNTER 2021-02-10 09:48 | Outpatient (CLI) | payer MEDICARE, SELFPAY ==
--- NOTE | 2021-02-10 10:15 | US_ITS ---
WS: [id number] ULTRASOUND SOFT TISSUES RIGHT axilla HISTORY: N63.10 - Unspecified lump in the right breast, history of breast cancer. COMPARISON: None available. TECHNIQUE: 2-D and color Doppler imaging is submitted. There are several small lymph nodes within the RIGHT axilla. These lymph nodes are small caliber. The re is normal fatty replacement. There is one single lymph node which is labeled #1 in which the lesli x is asymmetrically thickened. There is mild asymmetry and displacement of the fatty hilum. This is a very small lymph node measuring 8 x 6 x 11 mm. US/US soft tissue/extremity [id number] IMPRESSION: 1. There is a single lymph node in the RIGHT axilla with asymmetrically thicke satrid cortex. This could represent very early metastatic disease. This lymph node is labeled #1. 2. The additional lymph nodes are smaller and unremarkable.
== END 2021-02-10 09:49 | disposition home or self-care (01) ==
LOC: RAD 09:50
PROVIDERS: PCP Family Medicine; Visit Provider Surgery
DX: N63.10 Unspecified lump in the right breast, unspecified quadrant (principal)
CPT/HCPCS: 76882

== ENCOUNTER 2021-02-14 06:37 | Outpatient (RCR) | payer MEDICARE, SELFPAY ==
[2021-02-14 09:12] LABS: Basophils % 0.1 %; Hematocrit 27.1 % (37.0-47.0); Lymphocytes # 1.5 10^3/uL (0.8-4.8); Mean Corpuscular HGB Conc 33.2 g/dL (30.0-36.0); Mean Corpuscular Volume 102.3 fl (81-99); Mean Platelet Volume 9.2 fL (7.4-10.4); Monocytes # 1.2 10^3/uL (0.2-0.9); Monocytes % 8.7 %; Neutrophils # 10.61 10^3/uL (1.8-7.7); Neutrophils % 79.1 %; Nucleated Red Blood Cells % 0 %; Platelet Count 288 10^3/cmm (130-400); Red Blood Count 2.65 10^6/uL (4.1-5.3); Red Cell Distribution Width 15.5 % (12.1-15.1); White Blood Count 13.4 10^3/uL (4.0-10.0)
[2021-02-14 09:34] LABS: Alanine Aminotransferase 8 U/L (0-33); Albumin Level 3.8 g/dL (3.5-5.2); Alkaline Phosphatase 49 IU/L (35-105); Anion Gap 16.7 (5-19); Aspartate Amino Transferase 10 U/L (0-32); Blood Urea Nitrogen 12 mg/dL (8-23); Calcium 8.6 mg/dL (8.5-10.5); Carbon Dioxide 20 mmol/L (22-29); Chloride 103 mmol/L (98-107); Globulin 2.1 g/dL (1.3-4.6); Glucose 122 mg/dL (65-115); Osmolality Calculated 283 mOsm/kg (285-295); Potassium 3.7 mmol/L (3.5-5.1); Sodium 136 mmol/L (136-145); Total Bilirubin 0.3 mg/dL (0.15-1.2); Total Protein 5.9 g/dL (6.6-8.7)
[2021-02-14] MEDS: acetaminophen 325 mg Tablet 650 MG PO (10:10)
[2021-02-14] MEDS: famotidine 20 mg Tablet PO (10:10)
[2021-02-14] MEDS: sodium chloride 0.9% 250 ML 75 ML IV (10:10)
[2021-02-14] MEDS: palonosetron 0.25 mg/5 mL SDV IV (10:10)
[2021-02-14] MEDS: diphenhydrAMINE 50 mg/mL SDV 1mL 25 MG IV (10:11)
[2021-02-14] MEDS: fosaprepitant 150 MG in sodium chloride 0.9% 150 ML 300 MG IV (11:35)
[2021-02-14] MEDS: pegfilgrastim 6 mg/0.6 mL Kit (onpro) SUBCUT (15:30)
--- NOTE | 2021-02-14 15:40 | ONC FU_ITS ---
Dr. Ness follow up note Patient: Chioma Willams Unit #: [id number]: 1955 Dicatated By: Ariana Ness M.D.Date of Visit:Feb 14, 2021 Onc Med Follow-up/Prog Note History of Present Illness: Ms. Willams is a 65-year-old female with a history of lung cancer originally diagnosed in 2003. At that time she underwent resection and as per patient, she was not offered any further treatment as it was a early stage disease. She also has history of COPD and chronic smoking. During her routine follow-up for lung cancer, she underwent CT scan of the chest on September 01, 2020. This reported fibrotic appearing spiculated opacity in the left upper lobe anteriorly measuring 1.9 x 1.2 cm. Additional fibrotic appearing spiculated subpleural opacity in the left upper lobe along the fissure posteriorly abutting pleura measured 1.4 x 1.2 cm. Additional indeterminant small spiculated opacity right upper lobe measuring 5 mm. Ms Willams then underwent CT PET imaging on September 04, 2020. This reported a 1.6 cm solid linear nodule in the left upper lobe with SUV of 1.8, most suggestive of benign scarring. But there was incidental finding showing FDG uptake in the central RIGHT breast. There was a solid 1.4 x 1.0 cm parenchymal lesion with SUV of 15.9, has a high probability of breast primary. Also noted were multiple right axillary lymph nodes FDG positive with SUV up to 9.1 measuring up to 2.5 cm in length. Left breast and axilla unremarkable. Patient underwent mammogram on September 23, 2020 which showed a high density mass measuring 1.7 x 1.5 cm in the inferior medial right breast there is also adjacent skin thickening and volume loss in the right breast. Single mildly prominent lymph node in the right axilla. On September 23, 2020 she underwent ultrasound-guided right breast biopsy which confirmed invasive ductal carcinoma lymphovascular invasion seen, as per discussion with Dr. Nolasco pathologist her tumor is ER/MT negative and HER-2/bola 3+ positive by IHC, FISH Confirmed it, Ki-67 90%. Patient has history of COPD, and still smoking actively. Denies alcohol use. Ms Willams was referred to us for consulatation and treatment of her breast cancer. She was started on neoadjuvant therapy with carboplatin/Taxotere/Perjeta/Herceptin on November 01, 2020. She did develop neutropenic fever after her first cycle of chemotherapy requiring admissin to the hospital. She was treated with parenteral antibiotics and supportive care and recovered well. She received her second cycle with Neulasta support on November 29, 2020 Echocardiogram done After 3 cycles on January 12, 2021 shows ejection fraction 60% Came for follow-up, denies any specific complaints, no fever chills, no nausea or vomiting, no diarrhea constipation, no melena or hematochezia, no hemoptysis hematemesis, mild discomfort in her right breast but no nipple discharge no overlying skin changes, tolerating neoadjuvant systemic therapy with carboplatin/docetaxel/Perjeta/Herceptin well Medications: Albuterol Sulfate 2 Puff(s) (of 108 (90 base) mcg/act) Aerosol Powder, Breath Activated Inhalation PRN Allergies: No Known Allergies. Review of Systems: Review of Systems is not available for this patient. Vital Signs: Performed on Feb 14, 2021 09:51 Height - 67.00 in Weight - 142.8 lbs (LOW) BSA - 1.75 sq.m BMI - 22.37 Temperature - 99.2 F (HIGH) Pulse - 95 /min Respiration - 18 /min BP - 114/71 mm(hg) O2 Sat - 98 % Pain - 5 Fatigue - 0 Performance Status: 0 - Fully active, able to carry on all predisease activities without restrictions. (ECOG) Physical Examination: Respiratory - Lungs are clear to auscultation, Cardiovascular - Regular rate and rhythm of heart, Breasts - No definite mass palpable in the right breast, no nipple discharge, no right axillary lymphadenopathy, Extremities - No visible edema. Lab/Imaging: Test performed on Feb 14, 2021 09:58 Creatinine 0.8 mg/dL Cr Clearance (Est) 73.40 mL/min Test performed on Feb 07, 2021 08:33 Sodium 136 mmol/L Potassium 4.0 mmol/L Chloride 102 mmol/L CO2 19 mmol/L Anion Gap 19.0 BUN 10 mg/dL eGFR 72.0 mL/min Glucose 118 mg/dL Osmolality - Calculated 282 mOsm/kg Calcium 8.8 mg/dL Protein, Total 6.3 g/dL Albumin 3.8 g/dL Globulin 2.5 g/dL Bilirubin, Total 0.2 mg/dL ALT (SGPT) 9 U/L AST (SGOT) 12 U/L Alkaline Phosphatase 57 IU/L WBC 15.8 10 3/uL RBC 2.58 10 6/uL HGB 9.0 g/dL HCT 26.7 % MCV 103.5 fl MCH 34.9 pg MCHC 33.7 g/dL RDW 16.4 % Platelet Count 277 10 3/cmm MPV 9.7 fL Neutrophils 12.66 10 3/uL Lymphocytes 1.4 10 3/uL Monocytes 1.1 10 3/uL Eosinophils 0.0 10 3/uL Basophils 0.0 10 3/uL Neutrophil % 80.0 % Lymphocyte % 9.1 % Monocyte % 7.0 % Eosinophil % 0.0 % Basophils % 0.2 % NRBC % 0 % Test performed on Nov 18, 2020 08:50 BUN/Creatinine Ratio 8 Absolute Value A/G Ratio 1.7 Absolute Value Manual Bands 2 % Manual Lymphocytes 23 % Manual Monocytes 11 % Manual Eosinophils 1 % Manual Basophils 0 % Platelet Estimate adequate Impression: Invasive ductal carcinoma involving right breast per ultrasound guided biopsy done on September 23, 2020, as per pathology report shows ER negative MT negative, HER-2/bola 3+ positive by IHC , FISH Also confirmed, with very high Ki-67, at 90% CT PET scan done on September 04, 2020 showed 1.4 x 1.0 cm central right breast lesion with SUV of 15.9 and multiple right axillary lymph nodes positive with SUV of 2.9.1 measuring 2.5 cm in length., CT PET scan was done to confirm abnormal findings seen on CT scan of chest for follow-up for history of lung cancer which was diagnosed in 2013 at that time she underwent resection only no further treatment was offered because of her early stage disease. History of lung cancer, diagnosed in 2013, as per patient underwent resection no further treatment was offered COPD Chronic smoking Plan: Discussed with patient regarding her labs white blood count 13.4 hemoglobin 9 hematocrit 27.1 platelets 288,000 CMP within normal limits, Clinically, patient doing well with no new signs symptoms, her follow-up lab work-up is within normal limit except stable mild/moderate anemia, at this point, we will proceed with next cycle #5/6 with carboplatin/docetaxel/Perjeta/Herceptin followed by Neulasta and then return to clinic in 2 weeks with CBC CMP Patient had right axillary sonogram done on 02/10/2021 which showed a single lymph node in right axilla with asymmetrical thickened cortex otherwise unremarkable Signed By: Ariana Ness M.D. <<Signature on File>>
== END 2021-02-18 23:59 | disposition home or self-care (01) ==
LOC: ONCMED 06:37
PROVIDERS: PCP Family Medicine; Visit Provider Internal Medicine Hematology & Oncology
DX: Z51.11 Encounter for antineoplastic chemotherapy (principal); C50.811 Malignant neoplasm of overlapping sites of right female breast; Z17.1 Estrogen receptor negative status [ER-]; J44.9 Chronic obstructive pulmonary disease, unspecified; F17.210 Nicotine dependence, cigarettes, uncomplicated; D64.9 Anemia, unspecified; Z85.118 Personal history of other malignant neoplasm of bronchus and lung; Z79.899 Other long term (current) drug therapy
CPT/HCPCS: 80053; 85025; 96367; 96375; 96377; 96413; 96417; 99215; J1100; J1200; J1453; J2469; J2505; J7050; J9045; J9171; J9306; J9355

== ENCOUNTER 2021-03-21 06:36 | Outpatient (RCR) | payer MEDICARE, SELFPAY ==
[2021-02-28 09:06] LABS: Basophils % 0.6 %; Hematocrit 28.2 % (37.0-47.0); Hemoglobin 9.3 g/dL (11.5-15.3); Lymphocytes # 1.8 10^3/uL (0.8-4.8); Lymphocytes % 24.8 %; Mean Corpuscular Hemoglobin 33.9 pg (28.0-34.0); Mean Corpuscular Volume 102.9 fl (81-99); Mean Platelet Volume 10.1 fL (7.4-10.4); Monocytes # 0.5 10^3/uL (0.2-0.9); Monocytes % 6.7 %; Neutrophils # 4.78 10^3/uL (1.8-7.7); Neutrophils % 67.1 %; Nucleated Red Blood Cells % 0 %; Platelet Count 105 10^3/cmm (130-400); Red Blood Count 2.74 10^6/uL (4.1-5.3); White Blood Count 7.1 10^3/uL (4.0-10.0)
[2021-02-28 09:21] LABS: Alanine Aminotransferase 8 U/L (0-33); Albumin Level 3.5 g/dL (3.5-5.2); Alkaline Phosphatase 64 IU/L (35-105); Anion Gap 16.3 (5-19); Aspartate Amino Transferase 12 U/L (0-32); Blood Urea Nitrogen 6 mg/dL (8-23); Calcium 9.4 mg/dL (8.5-10.5); Carbon Dioxide 22 mmol/L (22-29); Chloride 103 mmol/L (98-107); Globulin 2.3 g/dL (1.3-4.6); Glomerular Filtration Rate 100.3 mL/min (90-130); Glucose 99 mg/dL (65-115); Osmolality Calculated 284 mOsm/kg (285-295); Potassium 3.3 mmol/L (3.5-5.1); Sodium 138 mmol/L (136-145); Total Bilirubin 0.2 mg/dL (0.15-1.2); Total Protein 5.8 g/dL (6.6-8.7)
[2021-03-07 08:36] LABS: Basophils % 0.2 %; Hemoglobin 9.2 g/dL (11.5-15.3); Lymphocytes # 1.1 10^3/uL (0.8-4.8); Lymphocytes % 7.6 %; Mean Corpuscular HGB Conc 32.9 g/dL (30.0-36.0); Mean Corpuscular Hemoglobin 34.1 pg (28.0-34.0); Mean Corpuscular Volume 103.7 fl (81-99); Mean Platelet Volume 10.1 fL (7.4-10.4); Monocytes # 0.8 10^3/uL (0.2-0.9); Monocytes % 5.3 %; Neutrophils # 12.02 10^3/uL (1.8-7.7); Neutrophils % 83.3 %; Nucleated Red Blood Cells % 0 %; Platelet Count 240 10^3/cmm (130-400); Red Cell Distribution Width 15.3 % (12.1-15.1); White Blood Count 14.4 10^3/uL (4.0-10.0)
[2021-03-07 08:58] LABS: Alanine Aminotransferase 9 U/L (0-33); Albumin Level 3.8 g/dL (3.5-5.2); Alkaline Phosphatase 58 IU/L (35-105); Anion Gap 18.1 (5-19); Aspartate Amino Transferase 11 U/L (0-32); Blood Urea Nitrogen 10 mg/dL (8-23); Carbon Dioxide 21 mmol/L (22-29); Chloride 100 mmol/L (98-107); Glomerular Filtration Rate 83.7 mL/min (90-130); Glucose 123 mg/dL (65-115); Osmolality Calculated 280 mOsm/kg (285-295); Potassium 4.1 mmol/L (3.5-5.1); Sodium 135 mmol/L (136-145); Total Bilirubin 0.2 mg/dL (0.15-1.2); Total Protein 5.8 g/dL (6.6-8.7)
[2021-03-07] MEDS: palonosetron 0.25 mg/5 mL SDV IV (09:45)
[2021-03-07] MEDS: famotidine 20 mg Tablet PO (09:46)
[2021-03-07] MEDS: acetaminophen 325 mg Tablet 650 MG PO (09:50)
[2021-03-07] MEDS: diphenhydrAMINE 50 mg/mL SDV 1mL 25 MG IV (09:58)
[2021-03-07] MEDS: fosaprepitant 150 MG in sodium chloride 0.9% 150 ML 300 MG IV (10:06)
[2021-03-07] MEDS: pegfilgrastim 6 mg/0.6 mL Kit (onpro) SUBCUT (13:30)
[2021-03-21 09:24] LABS: Basophils % 0.8 %; Hemoglobin 8.9 g/dL (11.5-15.3); Lymphocytes # 1.5 10^3/uL (0.8-4.8); Lymphocytes % 27.5 %; Mean Corpuscular HGB Conc 34.2 g/dL (30.0-36.0); Mean Corpuscular Hemoglobin 33.8 pg (28.0-34.0); Mean Corpuscular Volume 98.9 fl (81-99); Mean Platelet Volume 10.5 fL (7.4-10.4); Monocytes # 0.3 10^3/uL (0.2-0.9); Monocytes % 6.4 %; Neutrophils # 3.42 10^3/uL (1.8-7.7); Neutrophils % 64.5 %; Nucleated Red Blood Cells % 0 %; Platelet Count 40 10^3/cmm (130-400); Red Blood Count 2.63 10^6/uL (4.1-5.3); Red Cell Distribution Width 14.3 % (12.1-15.1); White Blood Count 5.3 10^3/uL (4.0-10.0)
[2021-03-21 09:51] LABS: Alanine Aminotransferase 11 U/L (0-33); Albumin Level 3.8 g/dL (3.5-5.2); Alkaline Phosphatase 76 IU/L (35-105); Anion Gap 15.8 (5-19); Aspartate Amino Transferase 11 U/L (0-32); Blood Urea Nitrogen 5 mg/dL (8-23); Calcium 8.2 mg/dL (8.5-10.5); Carbon Dioxide 23 mmol/L (22-29); Chloride 97 mmol/L (98-107); Globulin 2.1 g/dL (1.3-4.6); Glomerular Filtration Rate 71.8 mL/min (90-130); Glucose 105 mg/dL (65-115); Osmolality Calculated 274 mOsm/kg (285-295); Sodium 133 mmol/L (136-145); Total Bilirubin 0.2 mg/dL (0.15-1.2); Total Protein 5.9 g/dL (6.6-8.7)
[2021-03-21 09:54] LABS: Potassium 2.8 mmol/L (3.5-5.1)
[2021-03-21] MEDS: sodium chloride 0.9% 250 ML 75 ML IV (11:40)
[2021-03-21] MEDS: potassium chloride premix 20 MEQ/100 ML 50 MEQ IV (11:40)
[2021-03-21 12:49] LABS: Magnesium 1.2 mg/dL (1.7-2.3)
--- NOTE | 2021-03-22 16:10 | ONC FU_ITS ---
Dr. Ness follow up note Patient: Chioma Willams Unit #: [id number]: 1955 Dicatated By: Ariana Ness M.D.Date of Visit:Mar 21, 2021 Onc Med Follow-up/Prog Note History of Present Illness: Ms. Willams is a 66-year-old female with a history of lung cancer originally diagnosed in 2003. At that time she underwent resection and as per patient, she was not offered any further treatment as it was a early stage disease. She also has history of COPD and chronic smoking. During her routine follow-up for lung cancer, she underwent CT scan of the chest on September 01, 2020. This reported fibrotic appearing spiculated opacity in the left upper lobe anteriorly measuring 1.9 x 1.2 cm. Additional fibrotic appearing spiculated subpleural opacity in the left upper lobe along the fissure posteriorly abutting pleura measured 1.4 x 1.2 cm. Additional indeterminant small spiculated opacity right upper lobe measuring 5 mm. Ms Willams then underwent CT PET imaging on September 04, 2020. This reported a 1.6 cm solid linear nodule in the left upper lobe with SUV of 1.8, most suggestive of benign scarring. But there was incidental finding showing FDG uptake in the central RIGHT breast. There was a solid 1.4 x 1.0 cm parenchymal lesion with SUV of 15.9, has a high probability of breast primary. Also noted were multiple right axillary lymph nodes FDG positive with SUV up to 9.1 measuring up to 2.5 cm in length. Left breast and axilla unremarkable. Patient underwent mammogram on September 23, 2020 which showed a high density mass measuring 1.7 x 1.5 cm in the inferior medial right breast there is also adjacent skin thickening and volume loss in the right breast. Single mildly prominent lymph node in the right axilla. On September 23, 2020 she underwent ultrasound-guided right breast biopsy which confirmed invasive ductal carcinoma lymphovascular invasion seen, as per discussion with Dr. Nolasco pathologist her tumor is ER/DC negative and HER-2/bola 3+ positive by IHC, FISH Confirmed it, Ki-67 90%. Patient has history of COPD, and still smoking actively. Denies alcohol use. Ms Willams was referred to us for consulatation and treatment of her breast cancer. She was started on neoadjuvant therapy with carboplatin/Taxotere/Perjeta/Herceptin on November 01, 2020. She did develop neutropenic fever after her first cycle of chemotherapy requiring admissin to the hospital. She was treated with parenteral antibiotics and supportive care and recovered well. She received her second cycle with Neulasta support on November 29, 2020, Patient completed 6 cycles of recommended jennifer adjuvant therapy with carboplatin/docetaxel/Perjeta/Herceptin on March 07, 2021 Echocardiogram done After 3 cycles on January 12, 2021 shows ejection fraction 60% Came for follow-up, denies any specific complaints except diarrhea, which is a chronic problem but no mucus, no blood or dark-colored stools. No abdominal pain, no jaundice. No fever chills, no nausea or vomiting, no skin rash, no lower extremity edema, no shortness of breath. Medications: Albuterol Sulfate 2 Puff(s) (of 108 (90 base) mcg/act) Aerosol Powder, Breath Activated Inhalation PRN Allergies: No Known Allergies. Review of Systems: Review of Systems is not available for this patient. Vital Signs: Performed on Mar 21, 2021 11:25 Height - 67.00 in Weight - 134.8 lbs (LOW) BSA - 1.71 sq.m BMI - 21.11 Temperature - 98.0 F (LOW) Pulse - 89 /min Respiration - 16 /min BP - 110/68 mm(hg) O2 Sat - 99 % Pain - 0 Fatigue - 0 Performance Status: 1 - No physically strenuous activity, but ambulatory and able to carry out light or sedentary work (e.g. office work, light house work). (ECOG) Physical Examination: Respiratory - Lungs are clear to auscultation, Cardiovascular - Regular rate and rhythm of heart, Gastrointestinal - Soft, bowel sounds present, Extremities - No visible edema. Lab/Imaging: Test performed on Mar 21, 2021 09:56 Creatinine 0.8 mg/dL Cr Clearance (Est) 66.7700 mL/min Test performed on Mar 07, 2021 08:15 Sodium 135 mmol/L Potassium 4.1 mmol/L Chloride 100 mmol/L CO2 21 mmol/L Anion Gap 18.1 BUN 10 mg/dL eGFR 83.7 mL/min Glucose 123 mg/dL Osmolality - Calculated 280 mOsm/kg Calcium 9.0 mg/dL Protein, Total 5.8 g/dL Albumin 3.8 g/dL Globulin 2.0 g/dL Bilirubin, Total 0.2 mg/dL ALT (SGPT) 9 U/L AST (SGOT) 11 U/L Alkaline Phosphatase 58 IU/L WBC 14.4 10 3/uL RBC 2.70 10 6/uL HGB 9.2 g/dL HCT 28.0 % MCV 103.7 fl MCH 34.1 pg MCHC 32.9 g/dL RDW 15.3 % Platelet Count 240 10 3/cmm MPV 10.1 fL Neutrophils 12.02 10 3/uL Lymphocytes 1.1 10 3/uL Monocytes 0.8 10 3/uL Eosinophils 0.0 10 3/uL Basophils 0.0 10 3/uL Neutrophil % 83.3 % Lymphocyte % 7.6 % Monocyte % 5.3 % Eosinophil % 0.0 % Basophils % 0.2 % NRBC % 0 % Test performed on Nov 18, 2020 08:50 BUN/Creatinine Ratio 8 Absolute Value A/G Ratio 1.7 Absolute Value Manual Bands 2 % Manual Lymphocytes 23 % Manual Monocytes 11 % Manual Eosinophils 1 % Manual Basophils 0 % Platelet Estimate adequate Impression: Invasive ductal carcinoma involving right breast per ultrasound guided biopsy done on September 23, 2020, as per pathology report shows ER negative DC negative, HER-2/bola 3+ positive by IHC , FISH Also confirmed, with very high Ki-67, at 90% CT PET scan done on September 04, 2020 showed 1.4 x 1.0 cm central right breast lesion with SUV of 15.9 and multiple right axillary lymph nodes positive with SUV of 2.9.1 measuring 2.5 cm in length., CT PET scan was done to confirm abnormal findings seen on CT scan of chest for follow-up for history of lung cancer which was diagnosed in 2013 at that time she underwent resection only no further treatment was offered because of her early stage disease. Status post neoadjuvant chemotherapy with carboplatin/Taxotere/Herceptin/Perjeta, completed 6 cycles of neoadjuvant therapy on March 07, 2021 History of lung cancer, diagnosed in 2013, as per patient underwent resection no further treatment was offered COPD Chronic smoking Plan: Discussed with patient regarding her labs white blood count 5.3 hemoglobin 8.9 hematocrit 26 platelets 40,000 compared to 240 previously on the day of last chemotherapy, absolute neutrophil count 3420 CMP within normal limit except potassium 2.8, sodium 133 Clinically, patient is doing reasonably well, now recovering from her neoadjuvant chemotherapy which she has completed 6 cycles of Herceptin/Perjeta/carboplatin/Taxotere on March 07, 2021, her follow-up labs shows progressive moderate anemia but severe thrombocytopenia probably due to chemotherapy., Patient has no evidence of gross bleeding, will continue to monitor Her CMP showed severe hypokalemia probably due to chronic diarrhea, will consider parenteral potassium supplement 20 mEq over 2 hours, check her magnesium level if it is low consider magnesium infusion and also consider oral potassium supplement and she will return to clinic in 1 week with CBC CMP, patient is scheduled for her breast surgery on April 04, 2021 Signed By: Ariana Ness M.D. <<Signature on File>>
== END 2021-03-21 23:59 | disposition home or self-care (01) ==
LOC: ONCMED 06:36
PROVIDERS: Nurse Practitioner Family; PCP Family Medicine; Visit Provider Internal Medicine Hematology & Oncology
DX: Z51.11 Encounter for antineoplastic chemotherapy (principal); C50.811 Malignant neoplasm of overlapping sites of right female breast; Z17.1 Estrogen receptor negative status [ER-]; J44.9 Chronic obstructive pulmonary disease, unspecified; F17.210 Nicotine dependence, cigarettes, uncomplicated; Z85.118 Personal history of other malignant neoplasm of bronchus and lung; D64.81 Anemia due to antineoplastic chemotherapy; D69.59 Other secondary thrombocytopenia; T45.1X5A Adverse effect of antineoplastic and immunosuppressive drugs, initial encounter; E87.6 Hypokalemia; K52.9 Noninfective gastroenteritis and colitis, unspecified; Z79.899 Other long term (current) drug therapy
CPT/HCPCS: 36591; 80053; 83735; 85025; 96365; 96366; 96367; 96375; 96377; 96413; 96417; 99215; J1100; J1200; J1453; J2469; J2506; J3480; J7050; J9045; J9171; J9306; J9355

== ENCOUNTER 2021-03-28 11:32 | Outpatient (RCR) | payer MEDICARE, SELFPAY ==
[2021-03-22] MEDS: sodium chloride 0.9% 250 ML 500 ML IV (13:45)
[2021-03-28 12:13] LABS: Basophils % 0.5 %; Eosinophils % 0.2 %; Hematocrit 25.6 % (37.0-47.0); Hemoglobin 8.5 g/dL (11.5-15.3); Lymphocytes # 1.9 10^3/uL (0.8-4.8); Lymphocytes % 29.2 %; Mean Corpuscular HGB Conc 33.2 g/dL (30.0-36.0); Mean Corpuscular Hemoglobin 34.3 pg (28.0-34.0); Mean Corpuscular Volume 103.2 fl (81-99); Mean Platelet Volume 10.1 fL (7.4-10.4); Monocytes # 0.8 10^3/uL (0.2-0.9); Monocytes % 12.2 %; Neutrophils # 3.54 10^3/uL (1.8-7.7); Neutrophils % 53.9 %; Nucleated Red Blood Cells % 0 %; Platelet Count 128 10^3/cmm (130-400); Red Blood Count 2.48 10^6/uL (4.1-5.3); White Blood Count 6.6 10^3/uL (4.0-10.0)
[2021-03-28 12:50] LABS: Alanine Aminotransferase 9 U/L (0-33); Albumin Level 3.6 g/dL (3.5-5.2); Alkaline Phosphatase 66 IU/L (35-105); Anion Gap 16.9 (5-19); Aspartate Amino Transferase 13 U/L (0-32); Blood Urea Nitrogen 3 mg/dL (8-23); Calcium 9.4 mg/dL (8.5-10.5); Carbon Dioxide 21 mmol/L (22-29); Chloride 103 mmol/L (98-107); Globulin 2.1 g/dL (1.3-4.6); Glomerular Filtration Rate 71.8 mL/min (90-130); Glucose 95 mg/dL (65-115); Osmolality Calculated 280 mOsm/kg (285-295); Potassium 3.9 mmol/L (3.5-5.1); Sodium 137 mmol/L (136-145); Total Bilirubin 0.3 mg/dL (0.15-1.2); Total Protein 5.7 g/dL (6.6-8.7)
--- NOTE | 2021-03-28 16:53 | ONC FU_ITS ---
Dr. Ness follow up note Patient: Chioma Willams Unit #: [id number]: 1955 Dicatated By: Ariana Ness M.D.Date of Visit:Mar 28, 2021 Onc Med Follow-up/Prog Note History of Present Illness: Ms. Willams is a 66-year-old female with a history of lung cancer originally diagnosed in 2003. At that time she underwent resection and as per patient, she was not offered any further treatment as it was a early stage disease. She also has history of COPD and chronic smoking. During her routine follow-up for lung cancer, she underwent CT scan of the chest on September 01, 2020. This reported fibrotic appearing spiculated opacity in the left upper lobe anteriorly measuring 1.9 x 1.2 cm. Additional fibrotic appearing spiculated subpleural opacity in the left upper lobe along the fissure posteriorly abutting pleura measured 1.4 x 1.2 cm. Additional indeterminant small spiculated opacity right upper lobe measuring 5 mm. Ms Willams then underwent CT PET imaging on September 04, 2020. This reported a 1.6 cm solid linear nodule in the left upper lobe with SUV of 1.8, most suggestive of benign scarring. But there was incidental finding showing FDG uptake in the central RIGHT breast. There was a solid 1.4 x 1.0 cm parenchymal lesion with SUV of 15.9, has a high probability of breast primary. Also noted were multiple right axillary lymph nodes FDG positive with SUV up to 9.1 measuring up to 2.5 cm in length. Left breast and axilla unremarkable. Patient underwent mammogram on September 23, 2020 which showed a high density mass measuring 1.7 x 1.5 cm in the inferior medial right breast there is also adjacent skin thickening and volume loss in the right breast. Single mildly prominent lymph node in the right axilla. On September 23, 2020 she underwent ultrasound-guided right breast biopsy which confirmed invasive ductal carcinoma lymphovascular invasion seen, as per discussion with Dr. Nolasco pathologist her tumor is ER/[place] negative and HER-2/bola 3+ positive by IHC, FISH Confirmed it, Ki-67 90%. Patient has history of COPD, and still smoking actively. Denies alcohol use. Ms Willams was referred to us for consulatation and treatment of her breast cancer. She was started on neoadjuvant therapy with carboplatin/Taxotere/Perjeta/Herceptin on November 01, 2020. She did develop neutropenic fever after her first cycle of chemotherapy requiring admissin to the hospital. She was treated with parenteral antibiotics and supportive care and recovered well. She received her second cycle with Neulasta support on November 29, 2020, Patient completed 6 cycles of recommended jennifer adjuvant therapy with carboplatin/docetaxel/Perjeta/Herceptin on March 07, 2021 Which she completed on March 07, 2021 Echocardiogram done After 3 cycles on January 12, 2021 shows ejection fraction 60% Came for follow-up, denies any specific complaint except generalized weakness and fatigue but no nausea or vomiting, mild diarrhea but improving, no abdominal pain, no jaundice, no new bony pains, no right nipple discharge, no right breast/axilla fullness. No peripheral numbness but some discomfort and damage under finger nails. Patient has completed 6 cycles of neoadjuvant treatment with carboplatin/Taxotere/Perjeta/Herceptin, now being considered for surgery Medications: Albuterol Sulfate 2 Puff(s) (of 108 (90 base) mcg/act) Aerosol Powder, Breath Activated Inhalation PRN Allergies: No Known Allergies. Review of Systems: Review of Systems is not available for this patient. Vital Signs: Performed on Mar 28, 2021 16:04 Height - 67.00 in Weight - 140.0 lbs (HIGH) BSA - 1.74 sq.m BMI - 21.93 Temperature - 98.0 F (LOW) Pulse - 84 /min Respiration - 16 /min BP - 108/69 mm(hg) O2 Sat - 97 % Pain - 0 Fatigue - 0 Performance Status: 0 - Fully active, able to carry on all predisease activities without restrictions. (ECOG) Physical Examination: Respiratory - Lungs are clear to auscultation, Cardiovascular - Regular rate and rhythm of heart, Gastrointestinal - Soft, bowel sounds present, Extremities - No visible edema. Lab/Imaging: Test performed on Mar 21, 2021 09:56 Creatinine 0.8 mg/dL Cr Clearance (Est) 66.7700 mL/min Test performed on Mar 07, 2021 08:15 Sodium 135 mmol/L Potassium 4.1 mmol/L Chloride 100 mmol/L CO2 21 mmol/L Anion Gap 18.1 BUN 10 mg/dL eGFR 83.7 mL/min Glucose 123 mg/dL Osmolality - Calculated 280 mOsm/kg Calcium 9.0 mg/dL Protein, Total 5.8 g/dL Albumin 3.8 g/dL Globulin 2.0 g/dL Bilirubin, Total 0.2 mg/dL ALT (SGPT) 9 U/L AST (SGOT) 11 U/L Alkaline Phosphatase 58 IU/L WBC 14.4 10 3/uL RBC 2.70 10 6/uL HGB 9.2 g/dL HCT 28.0 % MCV 103.7 fl MCH 34.1 pg MCHC 32.9 g/dL RDW 15.3 % Platelet Count 240 10 3/cmm MPV 10.1 fL Neutrophils 12.02 10 3/uL Lymphocytes 1.1 10 3/uL Monocytes 0.8 10 3/uL Eosinophils 0.0 10 3/uL Basophils 0.0 10 3/uL Neutrophil % 83.3 % Lymphocyte % 7.6 % Monocyte % 5.3 % Eosinophil % 0.0 % Basophils % 0.2 % NRBC % 0 % Test performed on Nov 18, 2020 08:50 BUN/Creatinine Ratio 8 Absolute Value A/G Ratio 1.7 Absolute Value Manual Bands 2 % Manual Lymphocytes 23 % Manual Monocytes 11 % Manual Eosinophils 1 % Manual Basophils 0 % Platelet Estimate adequate Impression: Invasive ductal carcinoma involving right breast per ultrasound guided biopsy done on September 23, 2020, as per pathology report shows ER negative [place] negative, HER-2/bola 3+ positive by IHC , FISH Also confirmed, with very high Ki-67, at 90% CT PET scan done on September 04, 2020 showed 1.4 x 1.0 cm central right breast lesion with SUV of 15.9 and multiple right axillary lymph nodes positive with SUV of 2.9.1 measuring 2.5 cm in length., CT PET scan was done to confirm abnormal findings seen on CT scan of chest for follow-up for history of lung cancer which was diagnosed in 2013 at that time she underwent resection only no further treatment was offered because of her early stage disease. Status post neoadjuvant chemotherapy with carboplatin/Taxotere/Herceptin/Perjeta, completed 6 cycles of neoadjuvant therapy on March 07, 2021 History of lung cancer, diagnosed in 2013, as per patient underwent resection no further treatment was offered COPD Chronic smoking Plan: Discussed with patient regarding her labs white blood count 6.6 hemoglobin 8.5 g adequate 25.6 platelets 128,000 compared to 40,000 previously CMP within normal limits Clinically, patient is doing well with no new signs symptoms now recovering from neoadjuvant chemotherapy, which she has completed on March 07, 2021, patient was seen a week ago with severe hypokalemia and hypomagnesemia, patient was given parenteral followed by oral potassium supplement and also given parenteral magnesium supplement and today's repeat labs shows resolution of hypokalemia and near resolution of severe chemotherapy-induced thrombocytopenia, her moderate anemia is stable, etiology could be multifactorial including chemotherapy-induced, but will consider iron studies and B12 folic acid level if low, will supplement Patient is already scheduled for right breast surgery, as per patient on March 07, 2021, we will see her back 2 weeks after surgery with CBC CMP and review her pathology and plan further treatment based on that. Signed By: Ariana Ness M.D. <<Signature on File>>
== END 2021-04-18 23:59 | disposition home or self-care (01) ==
LOC: ONCMED 11:32
PROVIDERS: PCP Family Medicine; Visit Provider Internal Medicine Hematology & Oncology
DX: C50.811 Malignant neoplasm of overlapping sites of right female breast (principal); Z17.1 Estrogen receptor negative status [ER-]; J44.9 Chronic obstructive pulmonary disease, unspecified; F17.210 Nicotine dependence, cigarettes, uncomplicated; E87.6 Hypokalemia; E83.42 Hypomagnesemia; D69.59 Other secondary thrombocytopenia; T45.1X5A Adverse effect of antineoplastic and immunosuppressive drugs, initial encounter; Z79.899 Other long term (current) drug therapy
CPT/HCPCS: 36591; 80053; 85025; 96365; 99214; J3475; J7050

== ENCOUNTER → 2021-03-31 13:20 | Outpatient (BNVA) | payer MEDICARE, SELFPAY | PROVIDERS: PCP Family Medicine; Visit Provider Surgery | DX: Z20.822 Contact with and (suspected) exposure to COVID-19 (principal) | CPT/HCPCS: 87635 ==

== ENCOUNTER 2021-04-04 13:35 | Observation (INO) | payer MEDICARE, SELFPAY ==
[2021-03-28 15:18] LABS: Ferritin 492 ng/mL (15-150); Iron 42 ug/dL (37-145); Percent Saturation 17.5 % (20-50); Total Iron Binding Capacity 239 mcg/dl; Unsaturated Iron Binding 197 ug/dL (112-347)
[2021-03-28 19:00] LABS: Vitamin B12 > 2000 pg/mL (232-1245)
[2021-04-01 12:06] VITALS: BMI 21.6
[2021-04-04] VITALS (14 sets, daily range): BP systolic 95–146; BP diastolic 53–78; PULSE 69–99; RESP 10–18; TEMP 36.5–37.2; O2SAT 90–98
--- NOTE | 2021-04-04 08:18 | NM_ITS ---
WS: [id number] NUCLEAR MEDICINE SENTINEL LYMPH NODE IMAGING HISTORY: RIGHT sentinel node injection. RIGHT breast cancer. COMPARISON: Prior mammogram and breast ultrasound 09/23/2020 reviewed. TECHNIQUE: The patient was injected with 1.04 mCi of Technetium 99 ultra filtered sulfur colloid. Inj ection is intradermal in a periareolar location. Four aliquots are used. Injection of the radionuclide is uncomplicated. MD/MD sentinel node inject [id number] IMPRESSION: RIGHT breast sentinel node injection performed without difficulty.
--- NOTE | 2021-04-04 08:19 | PC.NURSE ---
NM SENTINEL NODE INJECTION OF 1.04 mCi Tc99m Filtered Sulfur Colloid completed at [address] Almazan.
--- NOTE | 2021-04-04 08:29 | W.PM.OPSFHP ---
Same Day Surgery H&P Indication for Procedure/HPI DATE OF PROCEDURE: April 04, 2021 CHIEF COMPLAINT/INDICATIONFOR SURGICAL PROCEDURE: right mastectomy/slnb PREOP DIAGNOSIS: Right breast cancer PLANNED PROCEDURE: Operation Date: 04/04/21 10:00 Proposed Procedures p Mastectomy Simple [id number] C50.11(Right) - Ilir Nicholson MD s Sentinal Lymph Node Biopsy(Right) - Ilir Nicholson MD Medications/Allergies* Home Medications Medication Instructions Recorded Confirmed Type dexamethasone 4 mg tablet 8 mg PO BID 11/09/20 04/04/21 History escitalopram oxalate 5 mg tablet 5 mg PO DAILY 04/04/21 04/04/21 History (Lexapro) Allergies/Adverse Reactions Allergy/AdvReac Type Severity Reaction Status Date / Time No Known Allergies Allergy Verified 04/04/21 08:20 Pertinent History/Comorbid Conditions* Medical History (Updated 01/18/21 @ 14:00 by Ilir Nicholson MD) Breast cancer, right Chronic obstructive pulmonary disease Lung cancer 2003 Surgical History (Updated 10/05/20 @ 12:23 by Ilir Nicholson MD) History of appendectomy History of cholecystectomy History of total abdominal hysterectomy and bilateral salpingo-oophorectomy Port-A-Cath in place (10/05/20) Family History (Updated 08/06/20 @ 12:53 by Bolivar Dalton LPN) CHF (congestive heart failure) Mother Cancer Father lung Social History Quit status (tobacco): considering quitting Second hand smoke exposure: No Smoking risk assessment/counseling performed?: Yes Alcohol intake: current Alcohol intake frequency: 3 or more drinks per day Lives independently: Yes Household members: none Marital status: Single service: No Current occupational status: retired Pets and animals: No History of recent travel: No Current gender identity: Female Pertinent Exam Findings alert, oriented x 3 and regular rate & rhythm Recommendations Surgery/Procedure today Coding Level of Care Code Acute Restrictive Preparation Operator for Michelle Bro
[2021-04-04] MEDS: sodium chloride 0.9% 1,000 ML 30 ML IV (08:40)
--- NOTE | 2021-04-04 09:32 | ANES.PREANE2 ---
Pre-Anesthetic Assessment Height/Weight: Height 1.7 m Weight 62.596 kg Temp Pulse Resp BP Pulse Ox 98.9 F 90 18 146/76 95 04/04/21 07:45 04/04/21 07:45 04/04/21 07:45 04/04/21 07:45 04/04/21 07:45 Preop Diagnosis: Right breast cancer Operation Date: 04/04/21 10:00 Proposed Procedures p Mastectomy Simple [id number] C50.11(Right) - Ilir Nicholson MD s Sentinal Lymph Node Biopsy(Right) - Ilir Nicholson MD Was Beta Maris taken within 24 hours: N/A Was Clonidine taken within 24 hours: N/A Last intake: Intake Last Liquid Date 04/03/21 Last Liquid Time 20:00 Last Solid Date 04/03/21 Last Solid Time 16:00 Social Tobacco and No alcohol Exam alert, oriented x 3, clear to auscultation bilaterally and regular rate & rhythm Airway Submandibular: within normal limits Cervical ROM: within normal limits Mallampati: Class I Dentition: full Pulmonary Chronic Obstructive Pulmonary Disease CV/HEM None reported METS > 4 None reported Hepatic None reported GI None reported Metabolic None reported Musc/skel Right breast cancer Neuropsych Anxiety and Depression Hx of benign tremor longstanding per patient, improved by ETOH Anesthetic Plan ASA status: 3 Anesthesia: Anesthesia Evaluation and General Other: We discussed risk and benefits of general anesthesia including PONV, sore throat (sometimes severe), corneal abrasion, positioning and peripheral nerve injuries, life threatening allergic reaction, post operative ICU admission requiring prolonged intubation, stroke, heart attack, , and rare incidences of recall. Patient consents to proceed with general anesthesia. Risk of > 500 ml blood loss (7ml/kg in children): No Medications/Allergies Home Medications Medication Instructions Recorded Confirmed Last Taken Type tiotropium bromide 2.5 2 puff INHALATION DAILY #4 g 09/27/20 04/04/21 04/03/21 Rx mcg/actuation mist for inhalation (Spiriva Respimat) dexamethasone 4 mg tablet 8 mg PO BID 11/09/20 04/04/21 04/03/21 History escitalopram oxalate 5 mg tablet 5 mg PO DAILY 04/04/21 04/04/21 04/03/21 History (Lexapro) Allergies Allergy/AdvReac Type Severity Reaction Status Date / Time No Known Allergies Allergy Verified 04/04/21 08:20 Current Medications Generic Name Dose Route Start Last Admin Trade Name Freq PRN Reason Stop Dose Admin Sodium Chloride 1,000 mls @ 30 mls/hr 04/04/21 07:45 04/04/21 08:40 Sodium Chloride 0.9% IV 04/05/21 07:44 30 mls/hr .Q24H MARY Administration PFSH Anesthesia Medical History Breast cancer, right Chronic obstructive pulmonary disease Lung cancer 2003 Surgical History History of appendectomy History of cholecystectomy History of total abdominal hysterectomy and bilateral salpingo-oophorectomy Port-A-Cath in place (10/05/20) Family History Father Cancer lung Mother CHF (congestive heart failure) Social History Quit status (tobacco): considering quitting Second hand smoke exposure: No Smoking risk assessment/counseling performed?: Yes Alcohol intake: current Alcohol intake frequency: 3 or more drinks per day Lives independently: Yes Household members: none Marital status: Single service: No Current occupational status: retired Pets and animals: No History of recent travel: No Current gender identity: Female Data Anesthesia Cardiac Studies: Echocardiogram 10/06/20 Echocardiogram Limited Views 01/12/21
[2021-04-04] MEDS: isosulfan blue 10 mg/mL SDV 5mL SUBCUT (10:50)
[2021-04-04] MEDS: lidocaine 1% INJ 20 mL INJECTION (11:04)
--- NOTE | 2021-04-04 12:31 | P.OP_ITS ---
Operative Report Date of procedure: April 04, 2021 Pre-op diagnosis: Right breast cancer status post neoadjuvant chemotherapy Post-op diagnosis: No specific sentinel lymph node could be identified in the right axilla using [id number], Lymphazurin and fluorescein isocyanate green No palpable axillary lymphadenopathy noted No masses palpable in right breast Procedure done: 1. Right mastectomy 2. Excision of right axillary tissue 3. Injection of 1% Lymphazurin Specimens removed/disposition: 1. Right breast, short superior, long stitch lateral 2. Right axillary tissue Surgeon: Ilir Nicholson Anesthesia: General Condition: stable Disposition: PACU Procedure: The patient was taken to the operating room and intubated under general anesthesia after IV antibiotic and instead. The patient had previously been injected with 99 technetium in 4 quadrants by radiology. I injected 2 cc of 1% Lymphazurin in the periareolar area subdermally as well as isocyanate green which was being trialed. The right chest and arm was prepped and draped in a sterile manner. Using a 15 blade an elliptical incision was made around the nipple areolar complex and dermis was divided with electrocautery. 60 mL of normal saline mixed with 40 mL of 1% lidocaine and 0.5% Marcaine with epinephrine was injected deep to the dermis using a 22-gauge spinal needle for tumescence. Using Bharat facelift scissors skin flaps were raised superiorly up to the second rib space, inferiorly to the inframammary line, medially up to the lateral edge of sternum and laterally up to the latissimus dorsi in the a vascular plane. Using electrocautery the breast along with the pectoral fascia was dissected off the pectoralis muscle starting superiorly and medially and moving inferiorly and laterally. A short stitch was placed superiorly and long stitch was placed laterally using 2-0 silk on the partially excised breast specimen. The lateral edge of the breast was freed along with the axillary tail and the specimen was removed entirely from the operative field. There were couple of bleeding muscular branches from the pectoral muscle which were controlled with cautery medium clips The wound was irrigated with warm water and the site was reexamined to ensure adequate hemostasis. Surgi-Daryl was applied over the pectoral muscles. There was no active bleeding noted. Through the mastectomy wound the right axilla was explored. There was no lymph nodes noted which were radioactive on the gamma probe or were stained with Lymphazurin or was visible with the camera used to identify lymph nodes conta ining fluorescein isocyanate green. There were no palpable lymph nodes. The clavipectoral fascia was opened and about 30 minutes was sent identifying any axillary tissue that could be excised and sent to pathology. Hemostasis was ensured with cautery and medium clips. There was significant radioactivity noted laterally in the skin but no specific sentinel lymph node could be identified. A stab incision was made laterally and 10 flat MICHELLE drain was placed along the inframammary fold and attached to bulb suction. The skin flaps appeared healthy and of adequate thickness. The dermis was approximated using running 3-0 Vicryl suture and the skin was closed using running subcuticular 4-0 Monocryl suture and Dermabond. Fluffs and a surgical bra was used for pressure dressing. Patient was transferred to the recovery room in stable condition.
[2021-04-04] MEDS: fentaNYL 50 mcg/mL INJ 2mL IVP (12:45)
[2021-04-04] MEDS: HYDROcodone-acetaminophen 5-325 mg Tablet 1 TAB PO ×2 (13:49→20:00)
[2021-04-04] MEDS: morphine 4 mg/mL SDV 1 mL 3 MG IVP ×2 (15:49→21:57)
[2021-04-04] MEDS: LORazepam 0.5 mg Tablet 1 MG PO (15:50)
[2021-04-04] MEDS: D5-NS 0.45% + KCL 20 mEq 20 MEQ/1,000 ML BAG 75 MEQ IV (15:51)
[2021-04-05] VITALS (8 sets, daily range): BP systolic 97–125; BP diastolic 52–72; PULSE 68–88; RESP 15–16; TEMP 36.6–36.9; O2SAT 93–96
[2021-04-05] MEDS: morphine 4 mg/mL SDV 1 mL 3 MG IVP ×2 (01:56→07:33)
[2021-04-05] MEDS: D5-NS 0.45% + KCL 20 mEq 20 MEQ/1,000 ML BAG 75 MEQ IV (04:44)
[2021-04-05] MEDS: sennosides-docusate Tablet 1 TAB PO (09:31)
[2021-04-05] MEDS: oxyCODONE-APAP 5-325 mg Tablet 1 TAB PO (09:31)
[2021-04-05] MEDS: escitalopram 10 mg Tablet 5 MG PO (09:31)
[2021-04-05] MEDS: LORazepam 0.5 mg Tablet PO (09:58)
--- NOTE | 2021-04-12 08:07 | PM.DCS ---
Discharge Providers Date of Admission: 04/04/21 13:35 Date of Discharge: April 05, 2021 Attending Provider at Admission: Ilir Nicholson MD Attending Provider at Discharge: Ilir Nicholson MD Primary Care Provider: Sukhjinder Allen MD Diagnoses at Discharge Discharge Diagnosis (1) Breast cancer, right: Status: Acute (2) S/P right mastectomy: Status: Acute Reason for Visit Reason for Visit: Right breast cancer Brief History: This is a 65 old female who previously been diagnosed with lung cancer in 2003 for which she underwent resection and during routine follow-up, she was noted to have a spiculated mass in the right lung.? She therefore underwent the PET/CT in August 2020 which showed a 1.4 x 1 cm lesion in the right breast concerning for malignancy and multiple FDG positive right axillary lymph nodes.? 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 Since then she has undergone 6 cycles of neoadjuvant chemotherapy with carboplatin/Taxotere/Perjeta/Herceptin Hospital Course Hospital Course Patient underwent right mastectomy with sentinel lymph node biopsy and was admitted overnight for observation. At time of discharge patient was tolerating a regular diet vital signs were stable, MICHELLE drain output is serosanguineous and incision was clean dry and intact Discharge Data Studies Completed and Pending Completed Studies During Hospitalization Category Date Time Status NM sentinel node inject [id number] Routine Nuc Med 04/04/21 08:18 Completed Pending at discharge Category Date Time Status Pathology: Surgical [PTH] Routine Pth 04/04/21 12:34 Received Radiology Impressions [place] Node 04/04/21 08:18 IMPRESSION: RIGHT breast sentinel node injection performed without difficulty. Laboratory Results Iron 42 ug/dL (37-145) 03/28/21 12:05 TIBC 239 mcg/dl 03/28/21 12:05 % Saturation 17.5 % (20-50) L 03/28/21 12:05 Unsat Iron Binding 197 ug/dL (112-347) 03/28/21 12:05 Ferritin 492 ng/mL (15-150) H 03/28/21 12:05 Vitamin B12 > 2000 pg/mL (232-1245) H 03/28/21 12:05 Vitals Last Vital Signs Temp 98.4 F 04/05/21 14:54 Pulse 88 04/05/21 14:54 Resp 16 04/05/21 14:54 BP 125/72 04/05/21 14:54 Pulse Ox 93 04/05/21 14:54 Discharge Plan Discharge Patient Disposition: Home Condition: Stable Prescriptions: New Zofran 4 mg tablet 4 mg PO Q6H PRN (Reason: nausea and vomiting) Qty: 20 0RF Percocet 5-325 mg tablet 1 tab PO Q6H PRN (Reason: pain) Qty: 20 0RF Colace 100 mg capsule 100 mg PO BID Qty: 30 0RF Continued Spiriva Respimat 2.5 mcg/actuation mist 2 puff inhalation DAILY Qty: 4 3RF dexamethasone 4 mg tablet 8 mg PO BID 0RF Hold Instructions: Resume on 11/18/20. Rx Instructions: the day prior to treatment and the day after treatment Lexapro 5 mg Tablet 5 mg PO DAILY 0RF Discharge Orders: Discharge Order (Routine); Ordered 04/05/21 Ordered By: Ilir Nicholson Referrals: Ilir Nicholson MD [Physician] - 04/19/21 11:15 am Patient Instructions: Oxycodone/Acetaminophen (By mouth) (Percocet, Roxicet), Ondansetron (By mouth) (Zofran, Zofran ODT, Zuplenz), Mastectomy (DC), Breast Cancer [place] Lymph Node Biopsy (DC), Opioid Safety Activity Restrictions/Additional Instructions: Diet Normal diet as tolerated, increase fluid intake as much as possible. Activity Avoid strenuous activity for 2 weeks but continue with daily activities including walking as tolerated. Do not lift more than 10 pounds for 2 weeks Return to work/school You can return to work/ school whenever you feel ready as long as you don?t have to lift more than 10 pounds at work. If you have paperwork that needs to be completed for time off from work, please contact my office Driving You can resume driving once you stop using narcotic pain medications, and transition to non-opioid pain medications like Tylenol, Motrin, Aleve, etc. Medications Pain Take opioid pain medications as prescribed and transition to non-opioid pain medications like Tylenol, Motrin, Aleve etc. over the next few days. The goal of the pain medications is to make the pain bearable and not to be pain free since you recently had surgery. Resume all home medications after surgery as per the medication reconciliation list Nausea Nausea is common after surgery, take nausea medications as needed and stay on a liquid bland diet until nausea resolves. Constipation The combination of surgery, anesthesia and pain medications can result in constipation. Take stool softeners as prescribed. If you do not have a bowel movement in 3 days, please take an mazu-rxo-zmjfzez laxative like MiraLAX to address the constipation. Shower It is ok to shower but avoid getting the wound wet for 48 hours after surgery. Do not soak in bathtub, swimming pool or hot tub for 2 weeks. Wound care If you had open wound, pack it with ribbon gauze once daily. The glue applied to the incision will peel slowly over the next two weeks. The stitches used are dissolvable and will not need to be removed. If you have garcía, they will be removed 2 weeks after surgery at follow up in my clinic. Do not apply antibiotics or other medications on the incision Drain care: Strip MICHELLE drain 3 -4 times a day. Document MICHELLE drain output for every 24 hours. Advised to contact office if MICHELLE drain less than 30cc/24 hour Problems with the wound You can develop some redness around the incision from bruising after surgery. If there is increasing pain, redness, tenderness around the incision with or without drainage, please contact my office to rule out an infection. Sometimes the skin at the incisions can separate, resulting in reopening of the wound. Cover the wound with antibiotic cream and sterile dressings and contact my office. Contact physician Call the office at [phone] during office hours or go the Emergency Room after hours for - ?Fever to 100.4 or greater ?Shaking chills ?Pain that increases over time ?Redness, warmth, or pus draining from incision sites ?Persistent nausea or inability to take in liquids Discharge Attestations Time Spent in Discharge Care*: less than 30 min Status at Discharge: Cognitive status at discharge: cognitively intact, Behavioral status at discharge: cooperative, Quality Metrics Clinical Quality Measures [ No reported AMI, CVA or VTE this stay] Coding Level of Care Code Acute Chg FW DC note Diagnoses Breast cancer, right C50.911 S/P right mastectomy Z90.11
== END 2021-04-05 14:54 | disposition home or self-care (01) ==
LOC: OBGYN 13:39
PROVIDERS: Internal Medicine Hematology & Oncology; Admitting Provider Surgery; PCP Family Medicine; Visit Provider Surgery
PROC: (CPT 19303; principal; 2021-04-04 10:00)
PROC: (CPT 19301; 2021-04-04 10:00)
DX: C50.111 Malignant neoplasm of central portion of right female breast (principal); J44.9 Chronic obstructive pulmonary disease, unspecified; F41.9 Anxiety disorder, unspecified; F32.9 Major depressive disorder, single episode, unspecified; Z85.118 Personal history of other malignant neoplasm of bronchus and lung
CPT/HCPCS: 19301; 38792; 82607; 82728; 83540; 83550; 88307; 88309; A9541; G0378; J0690; J1100; J1200; J2270; J2405; J2704; J3010; J3490; J7030; Q9968

== ENCOUNTER 2021-05-18 12:29 | Outpatient (RCR) | payer MEDICARE, SELFPAY ==
[2021-05-18 13:24] LABS: Basophils # 0.1 10^3/uL (0.0-0.1); Basophils % 0.9 %; Eosinophils # 0.1 10^3/uL (0.0-0.8); Eosinophils % 1.3 %; Hematocrit 31.5 % (37.0-47.0); Hemoglobin 10.4 g/dL (11.5-15.3); Lymphocytes # 2.2 10^3/uL (0.8-4.8); Lymphocytes % 32.3 %; Mean Corpuscular Hemoglobin 32.5 pg (28.0-34.0); Mean Corpuscular Volume 98.4 fl (81-99); Mean Platelet Volume 9.6 fL (7.4-10.4); Monocytes # 0.6 10^3/uL (0.2-0.9); Monocytes % 9.3 %; Neutrophils # 3.77 10^3/uL (1.8-7.7); Neutrophils % 55.6 %; Nucleated Red Blood Cells % 0 %; Platelet Count 182 10^3/cmm (130-400); Red Cell Distribution Width 14.4 % (12.1-15.1); White Blood Count 6.8 10^3/uL (4.0-10.0)
[2021-05-18 13:40] LABS: Alanine Aminotransferase 9 U/L (0-33); Albumin Level 4.1 g/dL (3.5-5.2); Alkaline Phosphatase 55 IU/L (35-105); Anion Gap 12.5 (5-19); Aspartate Amino Transferase 13 U/L (0-32); Blood Urea Nitrogen 10 mg/dL (8-23); Calcium 9.7 mg/dL (8.5-10.5); Carbon Dioxide 25 mmol/L (22-29); Chloride 100 mmol/L (98-107); Globulin 2.4 g/dL (1.3-4.6); Glomerular Filtration Rate 71.8 mL/min (90-130); Glucose 84 mg/dL (65-115); Osmolality Calculated 274 mOsm/kg (285-295); Potassium 4.5 mmol/L (3.5-5.1); Sodium 133 mmol/L (136-145); Total Bilirubin 0.3 mg/dL (0.15-1.2); Total Protein 6.5 g/dL (6.6-8.7)
--- NOTE | 2021-05-23 07:59 | ONC FU_ITS ---
Dr. Ness follow up note Patient: Chioma Willams Unit #: [id number]: 1955 Dicatated By: Ariana Ness M.D.Date of Visit:May 18, 2021 Onc Med Follow-up/Prog Note History of Present Illness: Ms. Willams is a 66-year-old female with a history of lung cancer originally diagnosed in 2003. At that time she underwent resection and as per patient, she was not offered any further treatment as it was a early stage disease. She also has history of COPD and chronic smoking. During her routine follow-up for lung cancer, she underwent CT scan of the chest on September 01, 2020. This reported fibrotic appearing spiculated opacity in the left upper lobe anteriorly measuring 1.9 x 1.2 cm. Additional fibrotic appearing spiculated subpleural opacity in the left upper lobe along the fissure posteriorly abutting pleura measured 1.4 x 1.2 cm. Additional indeterminant small spiculated opacity right upper lobe measuring 5 mm. Ms Willams then underwent CT PET imaging on September 04, 2020. This reported a 1.6 cm solid linear nodule in the left upper lobe with SUV of 1.8, most suggestive of benign scarring. But there was incidental finding showing FDG uptake in the central RIGHT breast. There was a solid 1.4 x 1.0 cm parenchymal lesion with SUV of 15.9, has a high probability of breast primary. Also noted were multiple right axillary lymph nodes FDG positive with SUV up to 9.1 measuring up to 2.5 cm in length. Left breast and axilla unremarkable. Patient underwent mammogram on September 23, 2020 which showed a high density mass measuring 1.7 x 1.5 cm in the inferior medial right breast there is also adjacent skin thickening and volume loss in the right breast. Single mildly prominent lymph node in the right axilla. On September 23, 2020 she underwent ultrasound-guided right breast biopsy which confirmed invasive ductal carcinoma lymphovascular invasion seen, as per discussion with Dr. Nolasco pathologist her tumor is ER/NM negative and HER-2/bola 3+ positive by IHC, FISH Confirmed it, Ki-67 90%. Patient has history of COPD, and still smoking actively. Denies alcohol use. Ms Willams was referred to us for consulatation and treatment of her breast cancer. She was started on neoadjuvant therapy with carboplatin/Taxotere/Perjeta/Herceptin on November 01, 2020. She did develop neutropenic fever after her first cycle of chemotherapy requiring admissin to the hospital. She was treated with parenteral antibiotics and supportive care and recovered well. She received her second cycle with Neulasta support on November 29, 2020, Patient completed 6 cycles of recommended jennifer adjuvant therapy with carboplatin/docetaxel/Perjeta/Herceptin on March 07, 2021 Which she completed on March 07, 2021 Subsequently underwent right mastectomy with right axillary lymph node excision on April 04, 2021, showed benign breast with sclerosis, fibrocystic changes and scar tissue. No malignancy identified. In right axillary sample, no lymphoid tissue identified, no malignancy identified Echocardiogram done After 3 cycles on January 12, 2021 shows ejection fraction 60% Came for follow-up, denies any specific complaints, no fever chills, no nausea or vomiting, no diarrhea or constipation, no new bony pains, right mastectomy lesion is healing well. Medications: Albuterol Sulfate 2 Puff(s) (of 108 (90 base) mcg/act) Aerosol Powder, Breath Activated Inhalation PRN Allergies: No Known Allergies. Review of Systems: Review of Systems is not available for this patient. Vital Signs: Performed on May 18, 2021 15:57 Height - 67.00 in Weight - 130.2 lbs (LOW) BSA - 1.68 sq.m BMI - 20.39 Temperature - 97.3 F (LOW) Pulse - 71 /min Respiration - 16 /min BP - 138/82 mm(hg) O2 Sat - 99 % Pain - 0 Fatigue - 0 Performance Status: 1 - No physically strenuous activity, but ambulatory and able to carry out light or sedentary work (e.g. office work, light house work). (ECOG) Physical Examination: Respiratory - Lungs are clear to auscultation, Cardiovascular - Regular rate and rhythm of heart, Breasts - Status post right MRM, well-healed surgical scar, Gastrointestinal - Soft, bowel sounds present, Extremities - No visible edema or rash. Lab/Imaging: Test performed on Mar 21, 2021 09:56 Creatinine 0.8 mg/dL Cr Clearance (Est) 66.7700 mL/min Test performed on Mar 07, 2021 08:15 Sodium 135 mmol/L Potassium 4.1 mmol/L Chloride 100 mmol/L CO2 21 mmol/L Anion Gap 18.1 BUN 10 mg/dL eGFR 83.7 mL/min Glucose 123 mg/dL Osmolality - Calculated 280 mOsm/kg Calcium 9.0 mg/dL Protein, Total 5.8 g/dL Albumin 3.8 g/dL Globulin 2.0 g/dL Bilirubin, Total 0.2 mg/dL ALT (SGPT) 9 U/L AST (SGOT) 11 U/L Alkaline Phosphatase 58 IU/L WBC 14.4 10 3/uL RBC 2.70 10 6/uL HGB 9.2 g/dL HCT 28.0 % MCV 103.7 fl MCH 34.1 pg MCHC 32.9 g/dL RDW 15.3 % Platelet Count 240 10 3/cmm MPV 10.1 fL Neutrophils 12.02 10 3/uL Lymphocytes 1.1 10 3/uL Monocytes 0.8 10 3/uL Eosinophils 0.0 10 3/uL Basophils 0.0 10 3/uL Neutrophil % 83.3 % Lymphocyte % 7.6 % Monocyte % 5.3 % Eosinophil % 0.0 % Basophils % 0.2 % NRBC % 0 % Impression: Invasive ductal carcinoma involving right breast per ultrasound guided biopsy done on September 23, 2020, as per pathology report shows ER negative NM negative, HER-2/bola 3+ positive by IHC , FISH Also confirmed, with very high Ki-67, at 90% CT PET scan done on September 04, 2020 showed 1.4 x 1.0 cm central right breast lesion with SUV of 15.9 and multiple right axillary lymph nodes positive with SUV of 2.9.1 measuring 2.5 [address] length[address] CT PET scan was done to confirm abnormal findings seen on CT scan of chest for follow-up for history of lung cancer which was diagnosed in 2013 at that time she underwent resection only no further treatment was offered because of her early stage disease. , T1c, N1 or 2, clinical stage IIa Status post neoadjuvant chemotherapy with carboplatin/Taxotere/Herceptin/Perjeta, completed 6 cycles of neoadjuvant therapy on March 07, 2021 History of lung cancer, diagnosed in 2013, as per patient underwent resection no further treatment was offered COPD Chronic smoking Plan: Discussed with patient regarding her labs white blood count 6.8 hemoglobin 10.4 g compared to 8.5 g previously hematocrit 31.5 platelets 182,000 CMP within normal limit except sodium 133 And her right mastectomy pathology report which shows complete remission Clinically, patient doing well with no new signs symptoms, recently underwent right mastectomy after neoadjuvant chemotherapy, final pathology report shows excellent response with no evidence of malignancy, patient responded very well to neoadjuvant therapy with Taxotere/carboplatin/Perjeta/Herceptin. At this point, we will consider resuming anti-HER-2/bola therapy with Herceptin/Perjeta for total 1 year. We will also get follow-up echocardiogram to assess treatment related toxicity. As her pretreatment CT PET scan showed metastatic disease in the right axilla, we will refer her to radiation oncology for evaluation for postmastectomy radiation therapy. She will return to clinic 1 week after initiating her adjuvant therapy with Herceptin/Perjeta, with CBC CMP Signed By: Ariana Ness M.D. <<Signature on File>>
== END 2021-05-19 23:59 | disposition home or self-care (01) ==
LOC: ONCMED 12:29
PROVIDERS: PCP Family Medicine; Visit Provider Internal Medicine Hematology & Oncology
DX: C50.811 Malignant neoplasm of overlapping sites of right female breast (principal); Z17.1 Estrogen receptor negative status [ER-]; J44.9 Chronic obstructive pulmonary disease, unspecified; F17.210 Nicotine dependence, cigarettes, uncomplicated; Z85.118 Personal history of other malignant neoplasm of bronchus and lung; Z92.21 Personal history of antineoplastic chemotherapy; Z79.899 Other long term (current) drug therapy
CPT/HCPCS: 36591; 80053; 85025; 99214

== ENCOUNTER 2021-06-07 06:44 | Outpatient (CLI) | payer MEDICARE, SELFPAY ==
--- NOTE | 2021-06-07 07:06 | USCV_ITS ---
Armida Willamsorah Age: 66 Gender: F : 1955 Exam Date: 06/07/2021 07:15 Ordering Phys: Ariana Ness MD Technologist: Exam Location: [facility] – [place] Indication: high risk meds BP: 127 / 76 HR: 74 Rhythm: Sinus Technical Quality: Adequate MEASUREMENTS (Male / Female) Normal Values 2D ECHO LV Diastolic Diameter PLAX 4.4 cm 4.2 - 5.9 / 3.9 - 5.3 cm LV Systolic Diameter PLAX 2.0 cm IVS Diastolic Thickness 0.7 cm 0.6 - 1.0 / 0.6 - 0.9 cm IVS Systolic Thickness 1.1 cm LVPW Diastolic Thickness 1.1 cm 0.6 - 1.0 / 0.6 - 0.9 cm LVPW Systolic Thickness 0.9 cm LVOT Diameter 2.0 cm LV Ejection Fraction 2D Teich 83.8 % LV Ejection Fraction MOD 2C 62.0 % LV Ejection Fraction 2C AL 61.7 % LA Diameter 3.1 cm M-MODE Aortic Annulus Diameter 3.3 cm LA Ao Ratio MM 1.0 MV E Point Septal Separation 1.0 cm DOPPLER AV Peak Velocity 116.0 cm/s LVOT Peak Velocity 94.0 cm/s AV Area Cont Eq vti 2.6 cm squared AV Area Cont Eq pk 2.6 cm squared MV Area PHT 5.0 cm squared Mitral E to A Ratio 0.9 MV E' Velocity 40.5 cm/s Mitral E to MV E' Ratio 6.3 Mitral E to LV E' Lateral Ratio 7.2 Mitral E to LV E' Septal Ratio 5.5 TR Peak Velocity 236.0 cm/s TR Peak Gradient 22.3 mmHg TV Peak E Velocity 63.0 cm/s Right Atrial Pressure 3.0 mmHg Pulmonary Artery Systolic Pressu 25.3 mmHg PV Peak Velocity 95.0 cm/s FINDINGS Left Ventricle Normal left ventricular size. LV systolic function is normal with EF of 55-60%. No regional wall motion abnormalities. Grade 1 diastolic dysfunction Right Ventricle The right ventricle is normal in size and function. Right Atrium The right atrium is normal in size. Left Atrium The left atrium is normal in size. Mitral Valve Structurally normal mitral valve without significant stenosis or prolapse. There is no mitral regurgitation. Aortic Valve Structurally normal aortic valve without significant sclerosis or stenosis. There is no aortic regurgitation. Tricuspid Valve Structurally normal tricuspid valve without significant stenosis. Mild tricuspid regurgitation. RVSP is 35-40mmHg. This is consistent with mild pulmonary hypertension Pulmonic Valve Structurally normal pulmonic valve without significant stenosis. There is no pulmonic regurgitation. Pericardium Normal pericardium without effusion. Aorta Normal ascending aorta dimension. CONCLUSIONS LV systolic function is normal with EF of 55-60% Grade 1 diastolic dysfunction Mild tricuspid regurgitation. Mild pulmonary hypertension Compared to prior echocardiogram from 01/12/2021, no significant change in LV systolic function is noted Jono Cook MD (Electronically Signed) Final Date: 07 June 2021 13:11 S
== END 2021-06-07 06:45 | disposition home or self-care (01) ==
LOC: RAD 06:45
PROVIDERS: PCP Family Medicine; Visit Provider Internal Medicine Hematology & Oncology
DX: Z79.899 Other long term (current) drug therapy (principal); I07.1 Rheumatic tricuspid insufficiency; I27.20 Pulmonary hypertension, unspecified
CPT/HCPCS: 93306

== ENCOUNTER 2021-06-17 06:35 | Outpatient (RCR) | payer MEDICARE, SELFPAY ==
--- NOTE | 2021-05-24 09:31 | N.ONRAD NP_ITS ---
Radiation Oncology Consultation Patient Name: Chioma Willams Date of : 1955 Date of Service: 05/24/2021 Attending Physician: Max Allen M.D. Chioma Willams was seen in consultation this morning at the request of Rodrigue Ness M.D. for consideration of postmastectomy radiotherapy for the management of a locally advanced breast cancer. The patient was identified during routine surveillance thoracic CT imaging in August 2020 for a previously diagnosed lung cancer (2003) to have a spiculated opacity in the left upper lobe of the lung measuring 1.9 cm x 1.2 cm and a 1.4 cm x 1.2 cm upper lobe, subpleural lesion. A PET scan (independently reviewed in [facility]) obtained on September 04, 2020 reported a linear nodule in the left upper lobe of the lung (SUV 1.8), however, within the central right breast a hypermetabolic lesion ruth 1.4 cm x 1 cm (SUV 15.9) was described. Multiple right axillary lymph nodes were present (max SUV 9.1) consistent with metastatic disease. A bilateral, diagnostic mammogram ordered on September 23, 2020 described 1.7 cm x 1.5 cm in the infero-medial right breast and a solitary axillary lymph node. An ultrasound-guided biopsy completed on September 23, 2020 grade 3, invasive ductal carcinoma with lymphovascular invasion present. The breast prognostic profile demonstrated HER-2 expression, but negative staining for estrogen and progesterone receptors. The Ki???67 was 90%. Neoadjuvant chemotherapy prescribing carboplatin, Taxotere, Perjeta, and Herceptin. She completed 6 cycles (November 01, 2020 through March 07, 2021). A right mastectomy with sentinel lymph node biopsy was performed by Ilir Nicholson M.D. on April 04, 2021. The pathology report (personally reviewed in [facility]) confirmed sclerosis and fibrocystic changes with focal tubular adenosis without malignancy identified. No lymphoid tissue was identified in the right axillary tissue submitted. The patient was evaluated for postmastectomy radiotherapy. I reviewed with the Ms. Willams the [place] [employer]aging and specifically the patient's pathological stage y0 breast cancer. The initial clinical stage was IIA (T1cN1). I also discussed the classic studies by the [employer] and the Early Breast Cancer Trialists??? Collaborative Group. She is aware that these studies demonstrated an overall survival improvement in patients treated with post-mastectomy radiotherapy. I would recommend a five week course of right chest wall and regional lymph node radiotherapy. A computed tomographic radiotherapy planning scan with contrast in the treatment position will be performed to identify the clinical tumor volumes. The potential toxicities of post-mastectomy radiotherapy were reviewed. The patient has verbalized understanding would like to proceed as recommended. The patient's medical treatment plan was discussed with Rodrigue Ness M.D. Signed by: Dr. Max Allen 05/25/2021 8:00:57 AM
--- NOTE | 2021-05-25 | CT_ITS ---
Radiation Therapy Planning CT images; total exam DLP: 322.39 mGy-cm MTDD
--- NOTE | 2021-05-30 10:28 | ONCRAD TMN_ITS ---
Radiation Oncology Treatment Management Note Patient Name: Chioma Willams Date of : 1955 Date of Service: 05/30/2021 Attending Physician: Max Allen M.D. Chioma Willams is a 66 year-old white female diagnosed a pathological stage y0 ductal carcinoma of the right breast. The initial clinical stage was IIA (T1cN1). The patient was identified during routine surveillance thoracic CT imaging in August 2020 for a previously diagnosed lung cancer (2003) to have a spiculated opacity in the left upper lobe of the lung measuring 1.9 cm x 1.2 cm and a 1.4 cm x 1.2 cm upper lobe, subpleural lesion. A PET scan obtained on September 04, 2020 reported a linear nodule in the left upper lobe of the lung (SUV 1.8), however, within the central right breast a hypermetabolic lesion ruth 1.4 cm x 1 cm (SUV 15.9) was described. Multiple right axillary lymph nodes were present (max SUV 9.1) consistent with metastatic disease. A bilateral, diagnostic mammogram ordered on September 23, 2020 described 1.7 cm x 1.5 cm in the infero-medial right breast and a solitary axillary lymph node. An ultrasound-guided biopsy completed on September 23, 2020 grade 3, invasive ductal carcinoma with lymphovascular invasion present. The breast prognostic profile demonstrated HER-2 expression, but negative staining for estrogen and progesterone receptors. The Ki???67 was 90%. Neoadjuvant chemotherapy prescribing carboplatin, Taxotere, Perjeta, and Herceptin. She completed 6 cycles (November 01, 2020 through March 07, 2021). A right mastectomy with sentinel lymph node biopsy was performed by Ilir Nicholson M.D. on April 04, 2021. The pathology report confirmed sclerosis and fibrocystic changes with focal tubular adenosis without malignancy identified. No lymphoid tissue was identified in the right axillary tissue submitted. She has received 2 Gy of a prescribed 50 Gy delivered with a 3D conformal radiotherapy plan utilizing opposed tangential portal guo matched to supraclavicular fossa and PAB ports incorporating a field-in- field treatment technique. Upon review of systems, she denied chest wall complaints related to radiotherapy. On physical examination, the patient weighed 126 lbs. Her temperature was 97.1 ???F and the blood pressure was 142/69 mmHg. Her pulse was 76 bpm and the respiratory rate was 20. There was no erythema within the treatment guo of the right chest wall. Continue right chest wall and regional lymph node irradiation as prescribed. Signed by: Dr. Max Allen 05/30/2021 10:26:25 AM
--- NOTE | 2021-06-06 10:22 | ONCRAD TMN_ITS ---
Radiation Oncology Treatment Management Note Patient Name: Chioma Willams Date of : 1955 Date of Service: 06/06/2021 Attending Physician: Max Allen M.D. Chioma Willams is a 66 year-old white female diagnosed a pathological stage y0 ductal carcinoma of the right breast. The initial clinical stage was IIA (T1cN1). The patient was identified during routine surveillance thoracic CT imaging in August 2020 for a previously diagnosed lung cancer (2003) to have a spiculated opacity in the left upper lobe of the lung measuring 1.9 cm x 1.2 cm and a 1.4 cm x 1.2 cm upper lobe, subpleural lesion. A PET scan obtained on September 04, 2020 reported a linear nodule in the left upper lobe of the lung (SUV 1.8), however, within the central right breast a hypermetabolic lesion ruth 1.4 cm x 1 cm (SUV 15.9) was described. Multiple right axillary lymph nodes were present (max SUV 9.1) consistent with metastatic disease. A bilateral, diagnostic mammogram ordered on September 23, 2020 described 1.7 cm x 1.5 cm in the infero-medial right breast and a solitary axillary lymph node. An ultrasound-guided biopsy completed on September 23, 2020 grade 3, invasive ductal carcinoma with lymphovascular invasion present. The breast prognostic profile demonstrated HER-2 expression, but negative staining for estrogen and progesterone receptors. The Ki???67 was 90%. Neoadjuvant chemotherapy prescribing carboplatin, Taxotere, Perjeta, and Herceptin. She completed 6 cycles (November 01, 2020 through March 07, 2021). A right mastectomy with sentinel lymph node biopsy was performed by Ilir Nicholson M.D. on April 04, 2021. The pathology report confirmed sclerosis and fibrocystic changes with focal tubular adenosis without malignancy identified. No lymphoid tissue was identified in the right axillary tissue submitted. She has received 12 Gy of a prescribed 50 Gy delivered with a 3D conformal radiotherapy plan utilizing opposed tangential portal guo matched to a supraclavicular fossa and PAB ports incorporating a field-in- field treatment technique. Upon review of systems, she denied chest wall complaints related to radiotherapy. On physical examination, the patient weighed 124 lbs. Her temperature was 97.3 ???F and the blood pressure was 127/69 mmHg. Her pulse was 70 bpm and the respiratory rate was 16. There was no erythema within the treatment guo of the right chest wall. Continue right chest wall and regional lymph node irradiation as planned. Signed by: Max Allen 06/06/2021 10:20:37 AM
--- NOTE | 2021-06-13 10:23 | ONCRAD TMN_ITS ---
Radiation Oncology Treatment Management Note Patient Name: Chioma Wilalms Date of : 1955 Date of Service: 06/13/2021 Attending Physician: Max Allen M.D. Chioma Willams is a 66 year-old white female diagnosed a pathological stage y0 ductal carcinoma of the right breast. The initial clinical stage was IIA (T1cN1). The patient was identified during routine surveillance thoracic CT imaging in August 2020 for a previously diagnosed lung cancer (2003) to have a spiculated opacity in the left upper lobe of the lung measuring 1.9 cm x 1.2 cm and a 1.4 cm x 1.2 cm upper lobe, subpleural lesion. A PET scan obtained on September 04, 2020 reported a linear nodule in the left upper lobe of the lung (SUV 1.8), however, within the central right breast a hypermetabolic lesion ruth 1.4 cm x 1 cm (SUV 15.9) was described. Multiple right axillary lymph nodes were present (max SUV 9.1) consistent with metastatic disease. A bilateral, diagnostic mammogram ordered on September 23, 2020 described 1.7 cm x 1.5 cm in the infero-medial right breast and a solitary axillary lymph node. An ultrasound-guided biopsy completed on September 23, 2020 grade 3, invasive ductal carcinoma with lymphovascular invasion present. The breast prognostic profile demonstrated HER-2 expression, but negative staining for estrogen and progesterone receptors. The Ki???67 was 90%. Neoadjuvant chemotherapy prescribing carboplatin, Taxotere, Perjeta, and Herceptin. She completed 6 cycles (November 01, 2020 through March 07, 2021). A right mastectomy with sentinel lymph node biopsy was performed by Ilir Nicholson M.D. on April 04, 2021. The pathology report confirmed sclerosis and fibrocystic changes with focal tubular adenosis without malignancy identified. No lymphoid tissue was identified in the right axillary tissue submitted. She has received 22 Gy of a prescribed 50 Gy delivered with a 3D conformal radiotherapy plan utilizing opposed tangential portal guo matched to a supraclavicular fossa and PAB ports incorporating a field-in- field treatment technique. Upon review of systems, she denied chest wall complaints related to radiotherapy. On physical examination, the patient weighed 125 lbs. Her temperature was 97.2 ???F and the blood pressure was 129/67 mmHg. Her pulse was 67 bpm and the respiratory rate was 16. There was no erythema within the treatment guo of the right chest wall. Continue right chest wall and regional lymph node irradiation as prescribed. Signed by: Max Allen 06/13/2021 10:22:04 AM
[2021-06-13 11:02] LABS: Basophils # 0.1 10^3/uL (0.0-0.1); Basophils % 1.2 %; Eosinophils # 0.1 10^3/uL (0.0-0.8); Eosinophils % 1.2 %; Hematocrit 33.3 % (37.0-47.0); Hemoglobin 11.2 g/dL (11.5-15.3); Lymphocytes # 1.8 10^3/uL (0.8-4.8); Lymphocytes % 30.9 %; Mean Corpuscular HGB Conc 33.6 g/dL (30.0-36.0); Mean Corpuscular Hemoglobin 32.3 pg (28.0-34.0); Mean Platelet Volume 9.6 fL (7.4-10.4); Monocytes # 0.5 10^3/uL (0.2-0.9); Monocytes % 9.2 %; Neutrophils # 3.27 10^3/uL (1.8-7.7); Neutrophils % 56.8 %; Nucleated Red Blood Cells % 0 %; Platelet Count 171 10^3/cmm (130-400); Red Blood Count 3.47 10^6/uL (4.1-5.3); Red Cell Distribution Width 13.3 % (12.1-15.1); White Blood Count 5.8 10^3/uL (4.0-10.0)
[2021-06-13 11:21] LABS: Slide Review Slide Review Perform
[2021-06-13 11:41] LABS: Alanine Aminotransferase 8 U/L (0-33); Albumin Level 4.2 g/dL (3.5-5.2); Alkaline Phosphatase 62 IU/L (35-105); Anion Gap 14.6 (5-19); Aspartate Amino Transferase 12 U/L (0-32); Blood Urea Nitrogen 12 mg/dL (8-23); Calcium 8.2 mg/dL (8.5-10.5); Carbon Dioxide 26 mmol/L (22-29); Chloride 101 mmol/L (98-107); Globulin 2.5 g/dL (1.3-4.6); Glomerular Filtration Rate 71.8 mL/min (90-130); Glucose 99 mg/dL (65-115); Osmolality Calculated 284 mOsm/kg (285-295); Potassium 4.6 mmol/L (3.5-5.1); Sodium 137 mmol/L (136-145); Total Bilirubin 0.2 mg/dL (0.15-1.2); Total Protein 6.7 g/dL (6.6-8.7)
[2021-06-14] MEDS: sodium chloride 0.9% 250 ML 100 ML IV (10:50)
[2021-06-14] MEDS: acetaminophen 325 mg Tablet 650 MG PO (10:50)
[2021-06-14] MEDS: famotidine 20 mg/2 mL INJ IVP (10:51)
[2021-06-14] MEDS: diphenhydrAMINE 50 mg/mL SDV 1mL 25 MG IV (10:56)
== END 2021-06-18 23:59 | disposition home or self-care (01) ==
LOC: ONCMED 06:35
PROVIDERS: Absent Provider Internal Medicine Hematology & Oncology; PCP Family Medicine; Visit Provider Radiology Radiation Oncology
DX: Z51.0 Encounter for antineoplastic radiation therapy (principal); Z51.11 Encounter for antineoplastic chemotherapy; C50.811 Malignant neoplasm of overlapping sites of right female breast; Z17.0 Estrogen receptor positive status [ER+]; Z90.11 Acquired absence of right breast and nipple
CPT/HCPCS: 36591; 77290; 77295; 77300; 77307; 77334; 77336; 77387; 77412; 77470; 80053; 85025; 96375; 96413; 96415; 96417; 99205; J1200; J3490; J7040; J7050; J9306; Q5112; Q9967

== ENCOUNTER 2021-07-05 12:00 | Oncology outpatient (recurring) (ONCR) | payer MEDICARE, SELFPAY ==
--- NOTE | 2021-06-20 10:30 | ONCRAD TMN_ITS ---
Radiation Oncology Treatment Management Note Patient Name: Chioma Willams Date of : 1955 Date of Service: 06/20/2021 Attending Physician: Max Allen M.D. Chioma Willams is a 66 year-old white female diagnosed a pathological stage y0 ductal carcinoma of the right breast. The initial clinical stage was IIA (T1cN1). The patient was identified during routine surveillance thoracic CT imaging in August 2020 for a previously diagnosed lung cancer (2003) to have a spiculated opacity in the left upper lobe of the lung measuring 1.9 cm x 1.2 cm and a 1.4 cm x 1.2 cm upper lobe, subpleural lesion. A PET scan obtained on September 04, 2020 reported a linear nodule in the left upper lobe of the lung (SUV 1.8), however, within the central right breast a hypermetabolic lesion ruth 1.4 cm x 1 cm (SUV 15.9) was described. Multiple right axillary lymph nodes were present (max SUV 9.1) consistent with metastatic disease. A bilateral, diagnostic mammogram ordered on September 23, 2020 described 1.7 cm x 1.5 cm in the infero-medial right breast and a solitary axillary lymph node. An ultrasound-guided biopsy completed on September 23, 2020 grade 3, invasive ductal carcinoma with lymphovascular invasion present. The breast prognostic profile demonstrated HER-2 expression, but negative staining for estrogen and progesterone receptors. The Ki???67 was 90%. Neoadjuvant chemotherapy prescribing carboplatin, Taxotere, Perjeta, and Herceptin. She completed 6 cycles (November 01, 2020 through March 07, 2021). A right mastectomy with sentinel lymph node biopsy was performed by Ilir Nicholson M.D. on April 04, 2021. The pathology report confirmed sclerosis and fibrocystic changes with focal tubular adenosis without malignancy identified. No lymphoid tissue was identified in the right axillary tissue submitted. Herceptin and Perjeta resumed administration June 14, 2021. She has received 32 Gy of a prescribed 50 Gy delivered with a 3D conformal radiotherapy plan utilizing opposed tangential portal guo matched to a supraclavicular fossa and PAB ports incorporating a field-in- field treatment technique. Upon review of systems, she denied chest wall complaints related to radiotherapy. On physical examination, the patient weighed 123 lbs. Her temperature was 96.6 ???F and the blood pressure was 137/70 mmHg. Her pulse was 84 bpm and the respiratory rate was 18. There was no erythema within the treatment guo of the right chest wall. Continue right chest wall and regional lymph node irradiation as planned. Signed by: Max Allen 06/20/2021 10:26:34 AM
[2021-06-20 11:28] LABS: Basophils # 0.1 10^3/uL (0.0-0.1); Basophils % 0.9 %; Eosinophils # 0.1 10^3/uL (0.0-0.8); Eosinophils % 1.2 %; Hematocrit 35.1 % (37.0-47.0); Hemoglobin 11.5 g/dL (11.5-15.3); Lymphocytes # 1.7 10^3/uL (0.8-4.8); Lymphocytes % 29.2 %; Mean Corpuscular HGB Conc 32.8 g/dL (30.0-36.0); Mean Corpuscular Hemoglobin 31.4 pg (28.0-34.0); Mean Corpuscular Volume 95.9 fl (81-99); Mean Platelet Volume 9.6 fL (7.4-10.4); Monocytes # 0.5 10^3/uL (0.2-0.9); Monocytes % 9.3 %; Neutrophils # 3.42 10^3/uL (1.8-7.7); Neutrophils % 58.7 %; Nucleated Red Blood Cells % 0 %; Platelet Count 184 10^3/cmm (130-400); Red Blood Count 3.66 10^6/uL (4.1-5.3); Red Cell Distribution Width 13.2 % (12.1-15.1); White Blood Count 5.8 10^3/uL (4.0-10.0)
[2021-06-20 11:52] LABS: Alanine Aminotransferase 9 U/L (0-33); Alkaline Phosphatase 69 IU/L (35-105); Anion Gap 13.2 (5-19); Aspartate Amino Transferase 11 U/L (0-32); Blood Urea Nitrogen 14 mg/dL (8-23); Calcium 10.1 mg/dL (8.5-10.5); Carbon Dioxide 25 mmol/L (22-29); Chloride 101 mmol/L (98-107); Globulin 3.4 g/dL (1.3-4.6); Glomerular Filtration Rate 71.8 mL/min (90-130); Glucose 76 mg/dL (65-115); Osmolality Calculated 279 mOsm/kg (285-295); Potassium 4.2 mmol/L (3.5-5.1); Sodium 135 mmol/L (136-145); Total Bilirubin 0.2 mg/dL (0.15-1.2); Total Protein 7.4 g/dL (6.6-8.7)
--- NOTE | 2021-06-27 10:30 | ONCRAD TMN_ITS ---
Radiation Oncology Treatment Management Note Patient Name: Chioma Willams Date of : 1955 Date of Service: 06/27/2021 Attending Physician: Max Allen M.D. Chioma Willams is a 66 year-old white female diagnosed a pathological stage y0 ductal carcinoma of the right breast. The initial clinical stage was IIA (T1cN1). The patient was identified during routine surveillance thoracic CT imaging in August 2020 for a previously diagnosed lung cancer (2003) to have a spiculated opacity in the left upper lobe of the lung measuring 1.9 cm x 1.2 cm and a 1.4 cm x 1.2 cm upper lobe, subpleural lesion. A PET scan obtained on September 04, 2020 reported a linear nodule in the left upper lobe of the lung (SUV 1.8), however, within the central right breast a hypermetabolic lesion ruth 1.4 cm x 1 cm (SUV 15.9) was described. Multiple right axillary lymph nodes were present (max SUV 9.1) consistent with metastatic disease. A bilateral, diagnostic mammogram ordered on September 23, 2020 described 1.7 cm x 1.5 cm in the infero-medial right breast and a solitary axillary lymph node. An ultrasound-guided biopsy completed on September 23, 2020 grade 3, invasive ductal carcinoma with lymphovascular invasion present. The breast prognostic profile demonstrated HER-2 expression, but negative staining for estrogen and progesterone receptors. The Ki???67 was 90%. Neoadjuvant chemotherapy prescribing carboplatin, Taxotere, Perjeta, and Herceptin. She completed 6 cycles (November 01, 2020 through March 07, 2021). A right mastectomy with sentinel lymph node biopsy was performed by Ilir Nicholson M.D. on April 04, 2021. The pathology report confirmed sclerosis and fibrocystic changes with focal tubular adenosis without malignancy identified. No lymphoid tissue was identified in the right axillary tissue submitted. Herceptin and Perjeta resumed administration June 14, 2021. She has received 42 Gy of a prescribed 50 Gy delivered with a 3D conformal radiotherapy plan utilizing opposed tangential portal guo matched to a supraclavicular fossa and PAB ports incorporating a field-in- field treatment technique. Upon review of systems, she described itching of the sternum. On physical examination, the patient weighed 126 lbs. Her temperature was 96.2 ???F and the blood pressure was 120/67 mmHg. Her pulse was 67 bpm and the respiratory rate was 18. There was a grade I dermatitis within the treatment guo of the right chest wall. Continue right chest wall and regional lymph node irradiation as prescribed. I recommended hydrocortisone lotion for itching. Signed by: Max Allen 06/27/2021 10:29:22 AM
--- NOTE | 2021-07-01 10:09 | N.ONRD TS_ITS ---
Radiation OncologyTreatment Summary Patient Name: Chioma Willams Date of : 1955 Date of Service: 07/01/2021 Attending Physician: Max Allen M.D. Chioma Willams has completed adjuvant right chest wall and axillary radiotherapy for the management of a pathological stage y0 ductal carcinoma of the right breast. The initial clinical stage was IIA (T1cN1). She was identified during routine surveillance thoracic CT imaging in August 2020 for a previously diagnosed lung cancer (2003) to have a spiculated opacity in the left upper lobe of the lung measuring 1.9 cm x 1.2 cm and a 1.4 cm x 1.2 cm upper lobe, subpleural lesion. A PET scan obtained on September 04, 2020 reported a linear nodule in the left upper lobe of the lung (SUV 1.8), however, within the central right breast a hypermetabolic lesion ruth 1.4 cm x 1 cm (SUV 15.9) was described. Multiple right axillary lymph nodes were present (max SUV 9.1) consistent with metastatic disease. A bilateral, diagnostic mammogram ordered on September 23, 2020 described 1.7 cm x 1.5 cm in the infero-medial right breast and a solitary axillary lymph node. An ultrasound-guided biopsy completed on September 23, 2020 grade 3, invasive ductal carcinoma with lymphovascular invasion present. The breast prognostic profile demonstrated HER-2 expression, but negative staining for estrogen and progesterone receptors. The Ki???67 was 90%. Neoadjuvant chemotherapy prescribing carboplatin, Taxotere, Perjeta, and Herceptin. She completed 6 cycles (November 01, 2020 through March 07, 2021). A right mastectomy with sentinel lymph node biopsy was performed by Ilir Nicholson M.D. on April 04, 2021. The pathology report confirmed sclerosis and fibrocystic changes with focal tubular adenosis without malignancy identified. No lymphoid tissue was identified in the right axillary tissue submitted. Herceptin and Perjeta resumed administration June 14, 2021. Daily radiotherapy was administered between the dates of May 30, 2021 through 2021. A prescribe dose of 50 Gy was delivered in 25 fractions encompassing 33 elapsed days. The right chest wall and regional lymph nodes were treated utilizing a 3-dimensional conformal radiotherapy plan with an opposed tangential portal guo were matched to supraclavicular/posterior axillary boost guo. The medial tangential field utilized a 56??? gantry angle with an associated collimator angle of 0???. The field size measured 6.1 cm x 3.7 cm within the X-direction and 19.6 cm x 0 cm within the Y-direction. The measured SSD was 94.3 cm with the field delivering 100 monitor units. Low energy photons were prescribed. Supplemental ports with multi-leaf collimation were designed allocating 19 MU and 5 MU. The lateral tangential field employed a gantry angle of 234??? and an associated collimator angle of 0???. The field size measured 3.7 cm x 6.1 cm within X-direction and 18.7 cm x 0 cm within the Y-direction. The measured SSD was 89.1 cm with the field allocating 114 monitor units. Additional guo with MLC were incorporated administering 5 MU and 4 MU, respectively. The supraclavicular portal field utilized an SERGO port with a gantry angle of 15??? and an associated collimator angle 0???. The port size measured 5.6 cm x 10 cm within the X-direction and 0 cm x 5.6 cm within the Y-direction. The measured SSD was 95.1 cm with the port apportioning 175 monitor units. High-energy photons were prescribed. Auxiliary supplemental guo with MLC were planned delivering 24 MU, 18 MU, and 42 MU. The posterior axillary boost field applied a gantry angle of 185??? with an associated collimator angle of 0???. The port size measured 10 cm x 5.6 cm within the X-direction and 0 cm x 5.6 cm within the Y-direction. The measured SSD was 86.5 cm with the port distributing 25 monitor units. High-energy photons were applied. A 2 mm tissue automobile mechanic radiator was applied daily to the right chest wall. All treatments were performed with the [employer] linear accelerator with an isocentric technique. ???The dose was calculated by Anisotropic Analytic Algorithm with the plan normalized to deliver 95% of the prescription dose to 95% of the planning target volume. Signed by: Max Allen 07/01/2021 10:08:18 AM
[2021-07-04 10:11] LABS: Basophils # 0.1 10^3/uL (0.0-0.1); Basophils % 0.8 %; Eosinophils # 0.1 10^3/uL (0.0-0.8); Eosinophils % 1.5 %; Hematocrit 33.5 % (37.0-47.0); Hemoglobin 11.2 g/dL (11.5-15.3); Lymphocytes # 1.3 10^3/uL (0.8-4.8); Lymphocytes % 21.8 %; Mean Corpuscular HGB Conc 33.4 g/dL (30.0-36.0); Mean Corpuscular Hemoglobin 31.5 pg (28.0-34.0); Mean Corpuscular Volume 94.4 fl (81-99); Mean Platelet Volume 9.4 fL (7.4-10.4); Monocytes # 0.7 10^3/uL (0.2-0.9); Neutrophils # 3.82 10^3/uL (1.8-7.7); Neutrophils % 64.4 %; Nucleated Red Blood Cells % 0 %; Platelet Count 163 10^3/cmm (130-400); Red Blood Count 3.55 10^6/uL (4.1-5.3); Red Cell Distribution Width 13.2 % (12.1-15.1); White Blood Count 5.9 10^3/uL (4.0-10.0)
[2021-07-04 10:39] LABS: Alanine Aminotransferase 8 U/L (0-33); Albumin Level 4.1 g/dL (3.5-5.2); Alkaline Phosphatase 75 IU/L (35-105); Anion Gap 16.6 (5-19); Aspartate Amino Transferase 11 U/L (0-32); Blood Urea Nitrogen 12 mg/dL (8-23); Calcium 9.8 mg/dL (8.5-10.5); Carbon Dioxide 23 mmol/L (22-29); Chloride 100 mmol/L (98-107); Globulin 3.2 g/dL (1.3-4.6); Glomerular Filtration Rate 71.8 mL/min (90-130); Glucose 119 mg/dL (65-115); Osmolality Calculated 283 mOsm/kg (285-295); Potassium 3.6 mmol/L (3.5-5.1); Sodium 136 mmol/L (136-145); Total Bilirubin 0.2 mg/dL (0.15-1.2); Total Protein 7.3 g/dL (6.6-8.7)
[2021-07-05] MEDS: acetaminophen 325 mg Tablet 650 MG PO (12:18)
[2021-07-05] MEDS: diphenhydrAMINE 50 mg/mL SDV 1mL 25 MG IVP (12:19)
[2021-07-05] MEDS: famotidine 20 mg/2 mL INJ IVP (12:20)
[2021-07-05] MEDS: sodium chloride 0.9% 250 ML 75 ML IV (12:21)
[2021-07-05] MEDS: pertuzumab 420 MG in sodium chloride 0.9% 250 ML 264 MG IV (12:34)
[2021-07-05 14:47] VITALS: BP 146/70; PULSE 60; O2SAT 99
== END 2021-07-19 23:59 | disposition home or self-care (01) ==
PROVIDERS: Internal Medicine Hematology & Oncology; PCP Family Medicine; Visit Provider Radiology Radiation Oncology
DX: Z51.0 Encounter for antineoplastic radiation therapy (principal); C50.811 Malignant neoplasm of overlapping sites of right female breast; Z17.1 Estrogen receptor negative status [ER-]; C78.02 Secondary malignant neoplasm of left lung; C77.3 Secondary and unspecified malignant neoplasm of axilla and upper limb lymph nodes; Z90.11 Acquired absence of right breast and nipple; Z92.21 Personal history of antineoplastic chemotherapy
CPT/HCPCS: 36591; 77014; 77336; 77387; 77412; 80053; 85025; 96375; 96413; 96417; 99215; 99999; J1200; J3490; J7050; J9306; Q5112

== ENCOUNTER → 2021-07-19 08:45 | Outpatient (BNVA) | payer MEDICARE, SELFPAY | PROVIDERS: PCP Family Medicine; Visit Provider Surgery | DX: Z98.890 Other specified postprocedural states (principal); C50.811 Malignant neoplasm of overlapping sites of right female breast; Z90.11 Acquired absence of right breast and nipple | CPT/HCPCS: 99213 ==

== ENCOUNTER 2021-08-16 10:30 | Oncology outpatient (recurring) (ONCR) | payer MEDICARE, SELFPAY ==
[2021-07-25 09:14] VITALS: BP 115/64; PULSE 74; RESP 18; TEMP 36.3; O2SAT 96
[2021-07-25 09:21] LABS: Basophils # 0.1 10^3/uL (0.0-0.1); Basophils % 1.1 %; Eosinophils # 0.1 10^3/uL (0.0-0.8); Eosinophils % 1.5 %; Hematocrit 33.9 % (37.0-47.0); Hemoglobin 11.6 g/dL (11.5-15.3); Lymphocytes # 1.2 10^3/uL (0.8-4.8); Lymphocytes % 21.9 %; Mean Corpuscular HGB Conc 34.2 g/dL (30.0-36.0); Mean Corpuscular Hemoglobin 30.8 pg (28.0-34.0); Mean Corpuscular Volume 89.9 fl (81-99); Mean Platelet Volume 9.6 fL (7.4-10.4); Monocytes # 0.6 10^3/uL (0.2-0.9); Monocytes % 10.2 %; Neutrophils # 3.49 10^3/uL (1.8-7.7); Neutrophils % 64.6 %; Nucleated Red Blood Cells % 0 %; Platelet Count 178 10^3/cmm (130-400); Red Blood Count 3.77 10^6/uL (4.1-5.3); White Blood Count 5.4 10^3/uL (4.0-10.0)
[2021-07-25 09:53] LABS: Alanine Aminotransferase 11 U/L (0-33); Albumin Level 4.2 g/dL (3.5-5.2); Alkaline Phosphatase 81 IU/L (35-105); Anion Gap 17.9 (5-19); Aspartate Amino Transferase 13 U/L (0-32); Blood Urea Nitrogen 12 mg/dL (8-23); CA 15-3 21.9 U/mL (0-25); Calcium 9.7 mg/dL (8.5-10.5); Carbon Dioxide 22 mmol/L (22-29); Chloride 94 mmol/L (98-107); Globulin 2.9 g/dL (1.3-4.6); Glomerular Filtration Rate 71.8 mL/min (90-130); Glucose 102 mg/dL (65-115); Osmolality Calculated 270 mOsm/kg (285-295); Potassium 3.9 mmol/L (3.5-5.1); Sodium 130 mmol/L (136-145); Total Bilirubin 0.6 mg/dL (0.15-1.2); Total Protein 7.1 g/dL (6.6-8.7)
[2021-07-26] MEDS: sodium chloride 0.9% 250 ML 75 ML IV (10:25)
[2021-07-26] MEDS: famotidine 20 mg/2 mL INJ IVP (10:27)
[2021-07-26] MEDS: diphenhydrAMINE 50 mg/mL SDV 1mL 25 MG IVP (10:29)
[2021-07-26] MEDS: pertuzumab 420 MG in sodium chloride 0.9% 250 ML 264 MG IV (11:07)
[2021-07-26] MEDS: acetaminophen 325 mg Tablet 650 MG PO (11:28)
[2021-07-26 12:26] VITALS: BP 114/68; PULSE 52; RESP 16; TEMP 36.1; O2SAT 100
--- NOTE | 2021-07-28 08:59 | ONCRAD EPV_ITS ---
Radiation Oncology Follow-Up Note Patient Name: Chioma Willams Date of : 1955 Date of Service: 07/28/2021 Attending Physician: Max Allen M.D. Chioma Willams returned to my office this morning for a routinely scheduled post-radiotherapy appointment. She completed post-mastectomy radiotherapy in June for the management of a pathological stage y0 ductal carcinoma of the right breast. The initial clinical stage was IIA (T1cN1). She was identified during routine surveillance thoracic CT imaging in August 2020 for a previously diagnosed lung cancer (2003) to have a spiculated opacity in the left upper lobe of the lung measuring 1.9 cm x 1.2 cm and a 1.4 cm x 1.2 cm upper lobe, subpleural lesion. A PET scan obtained on September 04, 2020 reported a linear nodule in the left upper lobe of the lung (SUV 1.8), however, within the central right breast a hypermetabolic lesion that measured 1.4 cm x 1 cm (SUV 15.9) was described. Multiple right axillary lymph nodes were present (max SUV 9.1) consistent with metastatic disease. A bilateral, diagnostic mammogram ordered on September 23, 2020 described 1.7 cm x 1.5 cm in the infero-medial right breast and a solitary axillary lymph node. An ultrasound-guided biopsy completed on September 23, 2020 grade 3, invasive ductal carcinoma with lymphovascular invasion present. The breast prognostic profile demonstrated HER-2 expression, but negative staining for estrogen and progesterone receptors. The Ki???67 was 90%. Neoadjuvant chemotherapy prescribing carboplatin, Taxotere, Perjeta, and Herceptin. She completed 6 cycles (November 01, 2020 through March 07, 2021). A right mastectomy with sentinel lymph node biopsy was performed by Ilir Nicholson M.D. on April 04, 2021. The pathology report confirmed sclerosis and fibrocystic changes with focal tubular adenosis without malignancy identified. No lymphoid tissue was identified in the right axillary tissue submitted. Herceptin and Perjeta resumed administration June 14, 2021. Daily radiotherapy was administered between the dates of May 30, 2021 through July 01, 2021. A prescribe dose of 50 Gy was delivered in 25 fractions encompassing 33 elapsed days. On review of systems, she denied skin complaints of the right chest wall. On physical examination, she weighed 126 lbs and her temperature was 96.2???F. Her blood pressure was 120/67 mmHg. The pulse was 67 bpm and her respiratory rate was 18 breaths per minute. The right chest wall demonstrated minimal hyperpigmentation without any areas of ulceration. In summary, Ms. Willams returned for a routine post-radiotherapy follow-up. No sequelae from treatment were present. She continues maintenance Perjeta and trastuzumab (last administered July 26) and will continue follow-up with her medical oncologist. Signed by: Dr. Max Allen 07/28/2021 8:58:12 AM
[2021-08-15 10:10] VITALS: BMI 19.6
[2021-08-15 10:19] LABS: Basophils # 0.1 10^3/uL (0.0-0.1); Basophils % 0.9 %; Eosinophils # 0.1 10^3/uL (0.0-0.8); Hematocrit 32.6 % (37.0-47.0); Hemoglobin 10.9 g/dL (11.5-15.3); Lymphocytes # 1.5 10^3/uL (0.8-4.8); Lymphocytes % 25.3 %; Mean Corpuscular HGB Conc 33.4 g/dL (30.0-36.0); Mean Corpuscular Hemoglobin 30.8 pg (28.0-34.0); Mean Corpuscular Volume 92.1 fl (81-99); Mean Platelet Volume 9.8 fL (7.4-10.4); Monocytes # 0.4 10^3/uL (0.2-0.9); Monocytes % 6.6 %; Neutrophils # 3.75 10^3/uL (1.8-7.7); Neutrophils % 63.8 %; Nucleated Red Blood Cells % 0 %; Platelet Count 176 10^3/cmm (130-400); Red Blood Count 3.54 10^6/uL (4.1-5.3); Red Cell Distribution Width 14.1 % (12.1-15.1); White Blood Count 5.9 10^3/uL (4.0-10.0)
[2021-08-15 10:47] LABS: Alanine Aminotransferase 13 U/L (0-33); Albumin Level 4.1 g/dL (3.5-5.2); Alkaline Phosphatase 70 IU/L (35-105); Anion Gap 16.1 (5-19); Aspartate Amino Transferase 17 U/L (0-32); Blood Urea Nitrogen 17 mg/dL (8-23); Calcium 9.4 mg/dL (8.5-10.5); Carbon Dioxide 24 mmol/L (22-29); Chloride 100 mmol/L (98-107); Globulin 2.8 g/dL (1.3-4.6); Glomerular Filtration Rate 62.6 mL/min (90-130); Glucose 172 mg/dL (65-115); Osmolality Calculated 286 mOsm/kg (285-295); Potassium 5.1 mmol/L (3.5-5.1); Sodium 135 mmol/L (136-145); Total Bilirubin 0.3 mg/dL (0.15-1.2); Total Protein 6.9 g/dL (6.6-8.7)
[2021-08-15 11:25] LABS: CA 15-3 24.3 U/mL (0-25)
[2021-08-16] MEDS: sodium chloride 0.9% 250 ML 75 ML IV (11:05)
[2021-08-16] MEDS: acetaminophen 325 mg Tablet 650 MG PO (11:08)
[2021-08-16] MEDS: famotidine 20 mg/2 mL INJ IVP (11:09)
[2021-08-16] MEDS: diphenhydrAMINE 50 mg/mL SDV 1mL 25 MG IVP (11:11)
[2021-08-16 11:22] LABS: Ferritin 297 ng/mL (15-150); Iron 54 ug/dL (37-145); Percent Saturation 18.4 % (20-50); Total Iron Binding Capacity 292 mcg/dl; Unsaturated Iron Binding 238 ug/dL (112-347)
[2021-08-16] MEDS: pertuzumab 420 MG in sodium chloride 0.9% 250 ML 264 MG IV (11:38)
[2021-08-16 12:46] VITALS: BP 151/77; PULSE 46; RESP 16; TEMP 36.2; O2SAT 99
== END 2021-08-18 23:59 | disposition home or self-care (01) ==
PROVIDERS: Internal Medicine Hematology & Oncology; Nurse Practitioner Family; PCP Family Medicine; Visit Provider Radiology Radiation Oncology
DX: Z51.11 Encounter for antineoplastic chemotherapy (principal); C50.911 Malignant neoplasm of unspecified site of right female breast; Z17.1 Estrogen receptor negative status [ER-]; Z90.11 Acquired absence of right breast and nipple; Z85.118 Personal history of other malignant neoplasm of bronchus and lung; D64.9 Anemia, unspecified; F17.210 Nicotine dependence, cigarettes, uncomplicated
CPT/HCPCS: 36591; 80053; 82728; 83540; 83550; 85025; 86300; 96375; 96413; 96417; 99214; J1200; J3490; J7050; J9306; Q5112

== ENCOUNTER 2021-09-06 11:00 | Oncology outpatient (recurring) (ONCR) | payer MEDICARE, SELFPAY ==
[2021-09-05 10:48] LABS: Basophils # 0.1 10^3/uL (0.0-0.1); Eosinophils # 0.1 10^3/uL (0.0-0.8); Eosinophils % 2.3 %; Hematocrit 33.2 % (37.0-47.0); Hemoglobin 10.9 g/dL (11.5-15.3); Lymphocytes # 1.6 10^3/uL (0.8-4.8); Lymphocytes % 26.6 %; Mean Corpuscular HGB Conc 32.8 g/dL (30.0-36.0); Mean Corpuscular Hemoglobin 31.4 pg (28.0-34.0); Mean Corpuscular Volume 95.7 fl (81-99); Mean Platelet Volume 9.5 fL (7.4-10.4); Monocytes # 0.6 10^3/uL (0.2-0.9); Monocytes % 10.1 %; Neutrophils # 3.51 10^3/uL (1.8-7.7); Neutrophils % 58.8 %; Nucleated Red Blood Cells % 0 %; Platelet Count 173 10^3/cmm (130-400); Red Blood Count 3.47 10^6/uL (4.1-5.3); Red Cell Distribution Width 14.5 % (12.1-15.1)
[2021-09-05 11:35] LABS: Alanine Aminotransferase 13 U/L (0-33); Albumin Level 4.2 g/dL (3.5-5.2); Alkaline Phosphatase 79 IU/L (35-105); Anion Gap 14.2 (5-19); Aspartate Amino Transferase 15 U/L (0-32); Blood Urea Nitrogen 17 mg/dL (8-23); CA 15-3 26.1 U/mL (0-25); Calcium 9.4 mg/dL (8.5-10.5); Carbon Dioxide 26 mmol/L (22-29); Chloride 97 mmol/L (98-107); Ferritin 328 ng/mL (15-150); Globulin 2.8 g/dL (1.3-4.6); Glomerular Filtration Rate 71.8 mL/min (90-130); Glucose 110 mg/dL (65-115); Iron 69 ug/dL (37-145); Osmolality Calculated 278 mOsm/kg (285-295); Percent Saturation 24.9 % (20-50); Potassium 4.2 mmol/L (3.5-5.1); Sodium 133 mmol/L (136-145); Total Bilirubin 0.4 mg/dL (0.15-1.2); Total Iron Binding Capacity 277 mcg/dl; Unsaturated Iron Binding 208 ug/dL (112-347)
[2021-09-06 10:50] VITALS: BP 119/67; PULSE 84; RESP 18; TEMP 36.6; O2SAT 98
[2021-09-06] MEDS: sodium chloride 0.9% 250 ML 75 ML IV (11:11)
[2021-09-06] MEDS: acetaminophen 325 mg Tablet 650 MG PO (11:12)
[2021-09-06] MEDS: diphenhydrAMINE 50 mg/mL SDV 1mL 25 MG IVP (11:13)
[2021-09-06] MEDS: famotidine 20 mg/2 mL INJ IVP (11:14)
[2021-09-06] MEDS: pertuzumab 420 MG in sodium chloride 0.9% 250 ML 264 MG IV (11:58)
== END 2021-09-18 23:59 | disposition home or self-care (01) ==
PROVIDERS: Nurse Practitioner Family; PCP Family Medicine; Visit Provider Radiology Radiation Oncology
DX: Z51.12 Encounter for antineoplastic immunotherapy (principal); Z51.11 Encounter for antineoplastic chemotherapy; C50.811 Malignant neoplasm of overlapping sites of right female breast; Z17.1 Estrogen receptor negative status [ER-]; Z90.11 Acquired absence of right breast and nipple; D64.9 Anemia, unspecified; F17.210 Nicotine dependence, cigarettes, uncomplicated; Z79.899 Other long term (current) drug therapy; Z85.118 Personal history of other malignant neoplasm of bronchus and lung; Z92.3 Personal history of irradiation
CPT/HCPCS: 36591; 80053; 82728; 83540; 83550; 85025; 86300; 96375; 96413; 96417; 99214; 99215; J1200; J3490; J7050; J9306; Q5112

== ENCOUNTER 2021-10-18 10:30 | Oncology outpatient (recurring) (ONCR) | payer MEDICARE, SELFPAY ==
[2021-09-26 11:07] VITALS: BP 121/59; PULSE 66; RESP 18; TEMP 36.2; O2SAT 99
[2021-09-26 11:23] LABS: Basophils # 0.1 10^3/uL (0.0-0.1); Eosinophils # 0.1 10^3/uL (0.0-0.8); Hematocrit 32.2 % (37.0-47.0); Hemoglobin 10.8 g/dL (11.5-15.3); Lymphocytes # 1.6 10^3/uL (0.8-4.8); Lymphocytes % 26.4 %; Mean Corpuscular HGB Conc 33.5 g/dL (30.0-36.0); Mean Corpuscular Hemoglobin 31.3 pg (28.0-34.0); Mean Corpuscular Volume 93.3 fl (81-99); Mean Platelet Volume 9.6 fL (7.4-10.4); Monocytes # 0.6 10^3/uL (0.2-0.9); Monocytes % 10.7 %; Neutrophils # 3.45 10^3/uL (1.8-7.7); Neutrophils % 58.7 %; Nucleated Red Blood Cells % 0 %; Platelet Count 152 10^3/cmm (130-400); Red Blood Count 3.45 10^6/uL (4.1-5.3); Red Cell Distribution Width 13.8 % (12.1-15.1); White Blood Count 5.9 10^3/uL (4.0-10.0)
[2021-09-26 12:13] LABS: Alanine Aminotransferase 14 U/L (0-33); Albumin Level 4.1 g/dL (3.5-5.2); Alkaline Phosphatase 80 IU/L (35-105); Aspartate Amino Transferase 14 U/L (0-32); Blood Urea Nitrogen 13 mg/dL (8-23); CA 15-3 24.9 U/mL (0-25); Calcium 9.4 mg/dL (8.5-10.5); Carbon Dioxide 26 mmol/L (22-29); Chloride 101 mmol/L (98-107); Globulin 2.6 g/dL (1.3-4.6); Glomerular Filtration Rate 71.8 mL/min (90-130); Glucose 104 mg/dL (65-115); Osmolality Calculated 282 mOsm/kg (285-295); Sodium 136 mmol/L (136-145); Total Bilirubin 0.3 mg/dL (0.15-1.2); Total Protein 6.7 g/dL (6.6-8.7)
[2021-09-27 11:07] VITALS: BP 127/71; PULSE 52; RESP 16; TEMP 36.3; O2SAT 99
[2021-09-27] MEDS: sodium chloride 0.9% 250 ML 100 ML IV (12:06)
[2021-09-27] MEDS: acetaminophen 325 mg Tablet 650 MG PO (12:07)
[2021-09-27] MEDS: famotidine 20 mg/2 mL INJ IVP (12:07)
[2021-09-27] MEDS: diphenhydrAMINE 50 mg/mL SDV 1mL 25 MG IVP (12:10)
[2021-09-27 12:26] LABS: Ferritin 346 ng/mL (15-150); Iron 51 ug/dL (37-145); Total Iron Binding Capacity 282 mcg/dl; Unsaturated Iron Binding 231 ug/dL (112-347)
[2021-09-27] MEDS: pertuzumab 420 MG in sodium chloride 0.9% 250 ML 264 MG IV (12:30)
[2021-09-27 12:42] LABS: Vitamin B12 861 pg/mL (232-1245)
[2021-09-27 14:13] VITALS: BP 127/71; PULSE 52; RESP 16; TEMP 36.3; O2SAT 99
--- NOTE | 2021-10-17 09:00 | USCV_ITS ---
Chioma Willams Age: 66 Gender: F : 1955 Exam Date: 10/17/2021 08:56 Ordering Phys: Ariana Ness MD Technologist: Exam Location: [facility] – [place] Indication: high risk meds BP: 124 / 75 HR: 74 Rhythm: Sinus Technical Quality: Adequate MEASUREMENTS (Male / Female) Normal Values 2D ECHO LV Diastolic Diameter PLAX 3.8 cm 4.2 - 5.9 / 3.9 - 5.3 cm LV Systolic Diameter PLAX 2.6 cm IVS Diastolic Thickness 0.7 cm 0.6 - 1.0 / 0.6 - 0.9 cm IVS Systolic Thickness 1.0 cm LVPW Diastolic Thickness 1.0 cm 0.6 - 1.0 / 0.6 - 0.9 cm LVPW Systolic Thickness 1.1 cm LVOT Diameter 2.0 cm LV Ejection Fraction 2D Teich 57.3 % LV Ejection Fraction MOD 2C 68.3 % LV Ejection Fraction 2C AL 67.6 % LA Diameter 2.9 cm Aorta at Sinotubular Diameter 2.7 cm M-MODE LV Diastolic Diameter MM 4.1 cm 4.2 - 5.9 / 3.9 - 5.3 cm LV Systolic Diameter MM 3.1 cm LV Ejection Fraction MM Teich 50.2 % IVS Diastolic Thickness MM 1.1 cm 0.6 - 1.0 / 0.6 - 0.9 cm IVS Systolic Thickness MM 1.0 cm LVPW Diastolic Thickness MM 1.0 cm 0.6 - 1.0 / 0.6 - 0.9 cm LVPW Systolic Thickness MM 1.7 cm RV Diastolic Diameter MM 1.4 cm Aortic Annulus Diameter 2.5 cm LA Ao Ratio MM 1.3 MV E Point Septal Separation 0.8 cm FINDINGS Left Ventricle Right Ventricle Right Atrium Left Atrium Mitral Valve Aortic Valve Tricuspid Valve Pulmonic Valve Pericardium Aorta IVC CONCLUSIONS LV systolic function is normal with EF of 55 to 60%. RV is normal in size Compared to prior echocardiogram from 06/07/2021, no significant changes are seen. Jono Cook MD (Electronically Signed) Final Date: 17 October 2021 18:52 S
[2021-10-17 09:22] LABS: Basophils # 0.1 10^3/uL (0.0-0.1); Basophils % 0.9 %; Eosinophils # 0.1 10^3/uL (0.0-0.8); Eosinophils % 1.8 %; Hematocrit 34.4 % (37.0-47.0); Hemoglobin 11.6 g/dL (11.5-15.3); Lymphocytes # 1.6 10^3/uL (0.8-4.8); Lymphocytes % 28.9 %; Mean Corpuscular HGB Conc 33.7 g/dL (30.0-36.0); Mean Corpuscular Hemoglobin 31.5 pg (28.0-34.0); Mean Corpuscular Volume 93.5 fl (81-99); Mean Platelet Volume 9.2 fL (7.4-10.4); Monocytes # 0.5 10^3/uL (0.2-0.9); Neutrophils # 3.24 10^3/uL (1.8-7.7); Neutrophils % 58.5 %; Nucleated Red Blood Cells % 0 %; Platelet Count 172 10^3/cmm (130-400); Red Blood Count 3.68 10^6/uL (4.1-5.3); Red Cell Distribution Width 13.3 % (12.1-15.1); White Blood Count 5.5 10^3/uL (4.0-10.0)
[2021-10-17 09:58] LABS: Alanine Aminotransferase 11 U/L (0-33); Albumin Level 4.3 g/dL (3.5-5.2); Alkaline Phosphatase 88 U/L (35-105); Anion Gap 18.2 (5-19); Aspartate Amino Transferase 14 U/L (0-32); Blood Urea Nitrogen 16 mg/dL (8-23); CA 15-3 26.6 U/mL (0-25); Carbon Dioxide 25 mmol/L (22-29); Chloride 100 mmol/L (98-107); Globulin 2.9 g/dL (1.3-4.6); Glomerular Filtration Rate 62.6 mL/min (90-130); Glucose 91 mg/dL (65-115); Osmolality Calculated 289 mOsm/kg (285-295); Potassium 4.2 mmol/L (3.5-5.1); Sodium 139 mmol/L (136-145); Total Bilirubin 0.3 mg/dL (0.15-1.2); Total Protein 7.2 g/dL (6.6-8.7)
[2021-10-18 01:00] VITALS: BP 138/78; PULSE 58; RESP 16; TEMP 35.8
[2021-10-18] MEDS: sodium chloride 0.9% 250 ML 75 ML IV (10:40)
[2021-10-18] MEDS: acetaminophen 325 mg Tablet 650 MG PO (10:42)
[2021-10-18] MEDS: famotidine 20 mg/2 mL INJ IVP (10:42)
[2021-10-18] MEDS: diphenhydrAMINE 50 mg/mL SDV 1mL 25 MG IVP (10:44)
[2021-10-18] MEDS: pertuzumab 420 MG in sodium chloride 0.9% 250 ML 264 MG IV (11:54)
--- NOTE | 2021-10-18 13:29 | XR_ITS ---
WS: [id number] Exam: XR chest 1V [id number] Date/Time of Exam: 10/18/2021 1:30 PM Reason For Exam: right chest wall pain Comparison 11/09/2020. The lungs are hyperinflated and clear. Right breast is surgically absent. Surgical clips along the ri ght axilla. Heart size is normal. The mediastinum is not widened. A left subclavian port appears to e nd in the lower one third of the SVC. Left apical pleural thickening. Fibrous scarring in the left up per lobe. Bony structures are intact. Postoperative change along the left suprahilar region which may indicate partial resection of the left lung. XR/XR chest 1V [id number] IMPRESSION: 1. No acute cardiopulmonary finding. 2. Chronic pulmonary and pleural changes as detailed above. Pulmonary hyperinfl ation probably indicating obstructive lung disease.
== END 2021-10-19 23:59 | disposition home or self-care (01) ==
PROVIDERS: Internal Medicine Hematology & Oncology; Absent Provider Radiology Radiation Oncology; PCP Family Medicine; Visit Provider Nurse Practitioner Family
DX: Z51.11 Encounter for antineoplastic chemotherapy (principal); C50.811 Malignant neoplasm of overlapping sites of right female breast; Z90.11 Acquired absence of right breast and nipple; F17.210 Nicotine dependence, cigarettes, uncomplicated; Z17.1 Estrogen receptor negative status [ER-]; Z85.118 Personal history of other malignant neoplasm of bronchus and lung; Z90.2 Acquired absence of lung [part of]; D64.9 Anemia, unspecified
CPT/HCPCS: 36591; 71045; 80053; 82607; 82728; 83540; 83550; 85025; 86300; 93308; 96367; 96375; 96413; 96417; 99214; 99215; J1200; J3490; J7050; J9306; Q5112

== ENCOUNTER 2021-10-26 07:27 | Outpatient (CLI) | payer MEDICARE, SELFPAY ==
--- NOTE | 2021-10-26 07:57 | MM_ITS ---
WS: [id number] DIAGNOSTIC LEFT DIGITAL TOMOSYNTHESIS MAMMOGRAPHY WITH CAD. HISTORY: HX OF BREAST CA COMPARISON: 09/23/2020 Technique: CC, MLO and ML views. Breast composition: There are scattered areas of fibroglandular density. Benign scattered calcificat ions. No interval change in appearance of the breasts. No distortion or mass. MM/[place] [id number] IMPRESSION: BI-RADS: 2-Benign FOLLOW UP: 1 Year Follow-up
== END 2021-10-26 07:28 | disposition home or self-care (01) ==
LOC: RAD 07:28
PROVIDERS: PCP Family Medicine; Visit Provider Surgery
DX: Z85.3 Personal history of malignant neoplasm of breast (principal)
CPT/HCPCS: 77061; 77062

== ENCOUNTER 2021-11-08 10:30 | Oncology outpatient (recurring) (ONCR) | payer MEDICARE, SELFPAY ==
[2021-11-07 11:41] LABS: Basophils # 0.1 10^3/uL (0.0-0.1); Basophils % 1.1 %; Eosinophils # 0.1 10^3/uL (0.0-0.8); Eosinophils % 1.3 %; Hemoglobin 10.6 g/dL (11.5-15.3); Lymphocytes # 1.6 10^3/uL (0.8-4.8); Lymphocytes % 26.3 %; Mean Corpuscular HGB Conc 34.2 g/dL (30.0-36.0); Mean Corpuscular Hemoglobin 31.6 pg (28.0-34.0); Mean Corpuscular Volume 92.5 fl (81-99); Mean Platelet Volume 9.3 fL (7.4-10.4); Monocytes # 0.5 10^3/uL (0.2-0.9); Monocytes % 8.3 %; Neutrophils # 3.83 10^3/uL (1.8-7.7); Nucleated Red Blood Cells % 0 %; Platelet Count 165 10^3/cmm (130-400); Red Blood Count 3.35 10^6/uL (4.1-5.3); Red Cell Distribution Width 12.8 % (12.1-15.1); White Blood Count 6.2 10^3/uL (4.0-10.0)
[2021-11-07 12:13] LABS: Alanine Aminotransferase 14 U/L (0-33); Albumin Level 3.7 g/dL (3.5-5.2); Alkaline Phosphatase 82 U/L (35-105); Anion Gap 11.1 (5-19); Aspartate Amino Transferase 16 U/L (0-32); Blood Urea Nitrogen 11 mg/dL (8-23); CA 15-3 24.3 U/mL (0-25); Calcium 9.3 mg/dL (8.5-10.5); Carbon Dioxide 26 mmol/L (22-29); Chloride 94 mmol/L (98-107); Glomerular Filtration Rate 71.8 mL/min (90-130); Glucose 88 mg/dL (65-115); Osmolality Calculated 263 mOsm/kg (285-295); Potassium 4.1 mmol/L (3.5-5.1); Sodium 127 mmol/L (136-145); Total Bilirubin 0.3 mg/dL (0.15-1.2); Total Protein 6.7 g/dL (6.6-8.7)
[2021-11-08] MEDS: acetaminophen 325 mg Tablet 650 MG PO (11:32)
[2021-11-08] MEDS: sodium chloride 0.9% 250 ML 75 ML IV (11:33)
[2021-11-08] MEDS: famotidine 20 mg/2 mL INJ IVP (11:35)
[2021-11-08] MEDS: diphenhydrAMINE 50 mg/mL SDV 1mL 25 MG IVP (11:36)
[2021-11-08] MEDS: pertuzumab 420 MG in sodium chloride 0.9% 250 ML 264 MG IV (11:50)
[2021-11-08 13:25] VITALS: BP 143/83; PULSE 60; RESP 16; TEMP 35.8; O2SAT 99
== END 2021-11-18 23:59 | disposition home or self-care (01) ==
PROVIDERS: Absent Provider Radiology Radiation Oncology; PCP Family Medicine; Visit Provider Nurse Practitioner Family
DX: Z51.11 Encounter for antineoplastic chemotherapy (principal); C50.811 Malignant neoplasm of overlapping sites of right female breast; F17.210 Nicotine dependence, cigarettes, uncomplicated; Z17.1 Estrogen receptor negative status [ER-]; Z85.118 Personal history of other malignant neoplasm of bronchus and lung; Z90.11 Acquired absence of right breast and nipple; Z92.3 Personal history of irradiation; Z79.899 Other long term (current) drug therapy; D64.9 Anemia, unspecified; E87.1 Hypo-osmolality and hyponatremia
CPT/HCPCS: 36591; 80053; 85025; 86300; 96375; 96413; 96417; 99214; 99215; J1200; J3490; J7050; J9306; Q5112

== ENCOUNTER 2021-11-18 14:10 | Outpatient (CLI) | payer MEDICARE, SELFPAY ==
--- NOTE | 2021-11-18 14:30 | CT_ITS ---
WS: [id number] CT HEAD WITH AND WITHOUT CONTRAST HISTORY: headache TECHNIQUE: Noncontrast axial images obtained from the vertex to the skull base. Additional axial imag es status post IV contrast. Bone and soft tissue windows are reviewed. All CT scans at [facility] use at least one of these dose optimization techniques: automated exposure control; mA and/or kV adjustment per patient size (includes targeted exams where dose is matched to clinical indication); or iterative reconstruction. CONTRAST: Omnipaque 350; 95 mL IV. DLP: 1934.48 mGy.cm COMPARISON: None available. Quality is limited by motion artifact. No acute intracranial hemorrhage, edema or midline shift. No enhancing mass or vascular malformations identified. Dural venous sinuses are partially visualized. Paranasal sinuses as visualized: Clear. Mastoid air cells: Clear. Calvarium and scalp: Intact. CT/CT head wo/w con [id number] IMPRESSION: 1. Quality of this study is significantly limited by motion artifact. 2. No large areas of hemorrhage or edema. No midline shift or hydrocephalus.
[2021-11-18] MEDS: iohexol 350 mg/mL 100 mL Btl IV (15:02)
== END 2021-11-18 14:11 | disposition home or self-care (01) ==
LOC: RAD 14:11
PROVIDERS: PCP Family Medicine; Visit Provider Internal Medicine Hematology & Oncology
DX: R51.9 Headache, unspecified (principal)
CPT/HCPCS: 70470

== ENCOUNTER 2021-12-06 10:30 | Oncology outpatient (recurring) (ONCR) | payer MEDICARE, SELFPAY ==
[2021-11-21 14:01] LABS: Basophils # 0.1 10^3/uL (0.0-0.1); Basophils % 1.1 %; Eosinophils # 0.1 10^3/uL (0.0-0.8); Eosinophils % 1.8 %; Hematocrit 33.2 % (37.0-47.0); Hemoglobin 11.1 g/dL (11.5-15.3); Lymphocytes # 1.8 10^3/uL (0.8-4.8); Lymphocytes % 24.6 %; Mean Corpuscular HGB Conc 33.4 g/dL (30.0-36.0); Mean Corpuscular Hemoglobin 31.4 pg (28.0-34.0); Mean Corpuscular Volume 94.1 fl (81-99); Mean Platelet Volume 9.5 fL (7.4-10.4); Monocytes # 0.5 10^3/uL (0.2-0.9); Monocytes % 6.9 %; Neutrophils # 4.69 10^3/uL (1.8-7.7); Neutrophils % 64.4 %; Nucleated Red Blood Cells % 0 %; Platelet Count 197 10^3/cmm (130-400); Red Blood Count 3.53 10^6/uL (4.1-5.3); Red Cell Distribution Width 13.2 % (12.1-15.1); White Blood Count 7.3 10^3/uL (4.0-10.0)
[2021-11-21 14:43] LABS: Alanine Aminotransferase 13 U/L (0-33); Albumin Level 3.9 g/dL (3.5-5.2); Alkaline Phosphatase 80 U/L (35-105); Aspartate Amino Transferase 15 U/L (0-32); Blood Urea Nitrogen 14 mg/dL (8-23); CA 15-3 26.2 U/mL (0-25); Calcium 9.5 mg/dL (8.5-10.5); Carbon Dioxide 27 mmol/L (22-29); Chloride 95 mmol/L (98-107); Globulin 2.8 g/dL (1.3-4.6); Glomerular Filtration Rate 71.8 mL/min (90-130); Glucose 153 mg/dL (65-115); Osmolality Calculated 272 mOsm/kg (285-295); Sodium 129 mmol/L (136-145); Total Bilirubin 0.3 mg/dL (0.15-1.2); Total Protein 6.7 g/dL (6.6-8.7)
[2021-12-05 09:38] LABS: Basophils # 0.1 10^3/uL (0.0-0.1); Basophils % 1.1 %; Eosinophils # 0.1 10^3/uL (0.0-0.8); Eosinophils % 1.8 %; Hematocrit 36.2 % (37.0-47.0); Hemoglobin 12.2 g/dL (11.5-15.3); Lymphocytes # 1.9 10^3/uL (0.8-4.8); Lymphocytes % 26.6 %; Mean Corpuscular HGB Conc 33.7 g/dL (30.0-36.0); Mean Corpuscular Hemoglobin 32.2 pg (28.0-34.0); Mean Corpuscular Volume 95.5 fl (81-99); Mean Platelet Volume 9.5 fL (7.4-10.4); Monocytes # 0.7 10^3/uL (0.2-0.9); Monocytes % 9.9 %; Neutrophils # 4.27 10^3/uL (1.8-7.7); Neutrophils % 59.6 %; Nucleated Red Blood Cells % 0 %; Platelet Count 182 10^3/cmm (130-400); Red Blood Count 3.79 10^6/uL (4.1-5.3); Red Cell Distribution Width 14.2 % (12.1-15.1); White Blood Count 7.2 10^3/uL (4.0-10.0)
[2021-12-05 10:00] LABS: Alanine Aminotransferase 15 U/L (0-33); Albumin Level 4.3 g/dL (3.5-5.2); Alkaline Phosphatase 78 U/L (35-105); Anion Gap 17.3 (5-19); Aspartate Amino Transferase 16 U/L (0-32); Blood Urea Nitrogen 17 mg/dL (8-23); Calcium 9.9 mg/dL (8.5-10.5); Carbon Dioxide 23 mmol/L (22-29); Chloride 95 mmol/L (98-107); Globulin 3.1 g/dL (1.3-4.6); Glomerular Filtration Rate 71.8 mL/min (90-130); Glucose 119 mg/dL (65-115); Osmolality Calculated 275 mOsm/kg (285-295); Potassium 4.3 mmol/L (3.5-5.1); Sodium 131 mmol/L (136-145); Total Bilirubin 0.5 mg/dL (0.15-1.2); Total Protein 7.4 g/dL (6.6-8.7)
[2021-12-06] MEDS: acetaminophen 325 mg Tablet 650 MG PO (11:16)
[2021-12-06] MEDS: sodium chloride 0.9% 250 ML 75 ML IV (11:19)
[2021-12-06] MEDS: famotidine 20 mg/2 mL INJ IVP (11:20)
[2021-12-06] MEDS: diphenhydrAMINE 50 mg/mL SDV 1mL 25 MG IVP (11:24)
[2021-12-06] MEDS: pertuzumab 420 MG in sodium chloride 0.9% 250 ML 264 MG IV (11:29)
[2021-12-06 13:10] VITALS: BP 115/75; PULSE 68; RESP 18; TEMP 36; O2SAT 100
== END 2021-12-19 23:59 | disposition home or self-care (01) ==
PROVIDERS: PCP Family Medicine; Visit Provider Internal Medicine Hematology & Oncology
DX: C50.811 Malignant neoplasm of overlapping sites of right female breast (principal); Z17.1 Estrogen receptor negative status [ER-]; Z51.11 Encounter for antineoplastic chemotherapy; Z90.11 Acquired absence of right breast and nipple; R51.9 Headache, unspecified; Z79.899 Other long term (current) drug therapy; Z85.118 Personal history of other malignant neoplasm of bronchus and lung; F17.210 Nicotine dependence, cigarettes, uncomplicated
CPT/HCPCS: 36415; 36591; 80053; 85025; 86300; 96375; 96413; 96417; 99214; J1200; J3490; J7050; J9306; Q5112

== ENCOUNTER 2021-12-19 15:21 | Emergency (ER) | payer MEDICARE, SELFPAY ==
[2021-12-19 15:23] VITALS: BP 108/58; PULSE 70; RESP 18; TEMP 36.8; O2SAT 98; BMI 19.3
--- NOTE | 2021-12-19 15:56 | ED_ITS ---
HPI - Seizure General: Chief Complaint: Seizure Stated Complaint: seizure Time Seen by Provider: 12/19/21 15:32 Source: patient and family Mode of arrival: EMS Limitations: no limitations History of Present Illness: HPI Narrative: Patient was transported via EMS to the emergency department because of a seizure. History is provided both by the patient as well as a bystander. Currently she was interacting with a family member earlier this morning and she started to walk away from him and he noted that she then sat down on the stoop. She was then observed to lay back and have a generalized tonic clonic seizure which lasted approximately 1 minute. Family member then stated that she was confused for a period of time perhaps 7 to 10 minutes before she started engaging in relatively normal conversation. Patient currently denies any pain to include headache etc. Her sister is also present and states that she has been complaining of headaches for the last several weeks and has had a CT scan a number of weeks ago which reportedly was normal. She is also had a history of essential tremor and has been treated with benzodiazepines. There was some concern about whether the benzodiazepines were contributing to her headache and she discontinued those approximately 10 days ago. She had been taking them for approximately 1 year. She had mid initially had a little bit more jitteriness for a few days after stopping them but has not had any of those symptoms since. She is never had a seizure before. She did not injure herself during her seizure. She denied any prodrome to include palpitations etc. but she stated that when she walked away just prior to the seizure she knew she has had to sit down. She is currently under treatment for breast and lung cancer. She does not consume alcohol. No loss of bowel or bladder control was noted during the seizure. There is a question of whether she has been having less quality sleep over the past number of days since she stopped her benzodiazepine as well. No [id number] medications for the patient Witnessed: Yes - by Bystander Trauma: No Seizure History: No Place: Home Associated symptoms: Deny chest pain, chills, confusion, fever(s) or syncope Treatments prior to arrival: none Review of Systems Const: Denies: fever(s) or chills Eyes: Denies: change in vision ENMT: Denies: throat pain, odynophagia, nasal discharge, nasal congestion or nasal obstruction Card: Denies: chest pain, palpitations, irregular heart rhythm, edema, syncope or pre-syncope Resp: Denies: dyspnea, productive cough or non-productive cough GI: Denies: abdominal pain, nausea, vomiting or diarrhea : Denies: flank pain, difficulty voiding, dysuria or urinary frequency Musc: Denies: neck pain, back pain, extremity pain or extremity swelling Skin/Breast: Denies: rash Neuro: Reports: headache(s) and seizure-like activity; Denies: numbness in extremities, weakness in extremities, frequent falls, confusion, behavioral changes, Slurred speech present or difficulty communicating thoughts Psych: Reports: sleeping less Demario/Lymph: Denies: easy bruising or easy bleeding PFSH ED PFSH: Medical History Breast cancer, right Chronic obstructive pulmonary disease Essential tremor Lung cancer 2004 Surgical History History of appendectomy History of cholecystectomy History of total abdominal hysterectomy and bilateral salpingo-oophorectomy Port-A-Cath in place (10/05/20) S/P right mastectomy (04/04/21) Family History Father Cancer lung Mother CHF (congestive heart failure) Diabetes Other Hypertension Lung disease Denies family history of CAD (coronary artery disease) Clotting disorder Dementia Hyperlipidemia Psychiatric illness Chronic kidney disease (CKD) Suicide Anesthesia complication Bleeding disorder Stroke Social History Smoking and tobacco status: current every day smoker (0.5 ppd, smoked x 30+ years) cigarettes Packs smoked per day: 0.5 Years cigarettes smoked: 40 [ Other cigarette details: [id number]] Quit status (tobacco): considering quitting Second hand smoke exposure: No Smoking risk assessment/counseling performed?: Yes Alcohol intake: current Alcohol intake frequency: 3 or more drinks per day Lives independently: Yes Household members: none Marital status: Single service: No Current occupational status: retired Pets and animals: No History of recent travel: No Current gender identity: Female Physical Exam Narrative: EXAM NARRATIVE: She makes good eye contact. Speech is goal-directed. No obvious trauma. Const: COMMON NORMALS: no acute distress, average body habitus and patient oriented x3 GENERAL APPEARANCE: cooperative and comfortable HENMT: COMMON NORMALS: normocephalic, atraumatic, Normal nasal mucous membranes and turbinates present, moist oral mucous membranes and oropharynx normal (No injury) HEAD & SCALP: normocephalic and atraumatic NOSE: Normal nasal mucous membranes and turbinates present Eye: COMMON NORMALS: Equal, round and reactive pupils present, EOMs intact bilaterally and conjunctivae normal CONJUNCTIVA: Yes conjunctivae normal PUPIL: Yes Equal, round and reactive pupils present Neck/C-Spine: COMMON NORMALS: no JVD CERVICAL SPINE: Yes cervical ROM normal, No Cervical spine tenderness, No step off deformity, No Paracervical muscle tenderness, No Paracervical spasm and No Trapezius muscle tenderness Resp: COMMON NORMALS: normal respiratory effort, No use of accessory muscles and clear to auscultation bilaterally AUSCULTATION: clear to auscultation bilaterally Cardio: COMMON NORMALS: no JVD, regular rate, regular rhythm, No murmurs present (Cardio) and Peripheral pulses 2+ throughout RATE: regular rate RHYTHM: regular rhythm PERIPHERAL PULSES: Peripheral pulses 2+ throughout GI: COMMON NORMALS: Normal to inspection, nondistended, normoactive bowel sounds present, Soft to palpation and non-tender PALPATION: Yes Soft to palpation : COMMON NORMALS: Yes no CVA tenderness BLADDER/KIDNEY EXAM: Yes no CVA tenderness Back/Pelvis: COMMON NORMALS: no CVA tenderness, thoracic and lumbar spine normal to inspection, no thoracic nor lumbar tenderness, thoraco-lumbar ROM normal and straight leg raise negative bilaterally Extremity: COMMON NORMALS: normal to inspection, full ROM, capillary refill normal, no calf tenderness and no pedal edema Neuro: COMMON NORMALS: patient oriented x3, moves all extremities, no focal motor deficits and no sensory deficits noted CRANIAL NERVES: Yes CN normal except as noted COORDINATION/BALANCE: [id number]-[id number]-[id number] test normal and heel-to- hedrick test normal SPEECH: speech normal COORDINATION: [id number]-rh-[id number] test normal and evdf-yx-cjmh test normal Psych: COMMON NORMALS: mental status grossly normal and cooperative Skin: COMMON NORMALS: no rashes or lesions noted, no wounds and turgor normal GENERAL SKIN EXAM: no rashes or lesions noted and turgor normal Course Reevaluation(s): Reevaluation #1: Patient remained stable and alert and without any new or focal findings on repeat examination. She has been in sinus rhythm the entire period of time she has been in the emergency department without any arrhythmias etc. I reviewed her current findings and their implications with both patient and her accompanying family. Discussed proposed plan of care and follow-up. No evidence at this time of ongoing emergency medical condition. We also discussed short-term no driving or operating machinery alone. Time: 18:46 Vital Signs: Vital signs: Vital Signs Temperature 98.3 F 12/19/21 15:23 Pulse Rate 78 12/19/21 17:50 Respiratory Rate 16 12/19/21 17:50 Blood Pressure 142/61 12/19/21 17:50 Pulse Oximetry 99 12/19/21 17:50 Oxygen Delivery Me thod 12/19/21 17:50 MDM - Seizure MDM Narrative Medical decision making narrative: Patient transported to our emergency department because of a single isolated generalized seizure witnessed by bystanders. No prior history of seizure disorder. Does have a prior history of both lung and breast cancer currently undergoing oncological treatment. No prodrome or history of but did not potential cardiac arrhythmia contributing to her current findings. She has been on diet benzodiazepines for approximately 1 year and stopped those approximately 10 days ago but did not suffer any significant side effects or withdrawal symptoms of the typical nature. 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 Imaging and other studies are reassuring today. Unsure etiology of her seizure may be a combination of her poor sleep which of which she has been only sleeping approximately 2 hours a night by her history for the last several nights in addition to may be a late effect of benzodiazepine withdrawal. She will need additional follow-up and likely neurologic referral and evaluation. Given this is a single isolated for seizure we will not initiate any anticonvulsants at this time but I did college admissions counselor her that if she had recurrent seizures that would be the likely outcome. In the short-term I will provide her a prescription for Ambien to get her restorative sleep to hopefully mitigate against additional seizures. I will hold off on prescribing any other benzodiazepines and allow her regular physicians to address that issue. Again we discussed seizure risk, return precautions, avoidance of driving in the short-term etc. Lab Data Result diagrams: 12/19/21 16:30 12/19/21 16:30 Labs: Radiology Impressions Head CT 12/19/21 16:51 IMPRESSION: 1. Motion artifact on multiple images that can limit evaluation otherwise, no acute abnormality of the brain. 2. No intracranial masses. 3. Incidental/nonacute findings are listed in the report. Laboratory Results WBC 8.6 10^3/uL (4.0-10.0) 12/19/21 16: RBC 3.71 10^6/uL (4.1-5.3) L 12/19/21 16:30 Hgb 11.8 g/dL (11.5-15.3) 12/19/21 16:30 Hct 35.3 % (37.0-47.0) L 12/19/21 16: MCV 95.1 fl (81-99) 12/19/21 16: MCH 31.8 pg (28.0-34.0) 12/19/21 16: MCHC 33.4 g/dL (30.0-36.0) 12/19/21 16: RDW 14.7 % (12.1-15.1) 12/19/21 16:30 Plt Count 185 10^3/cmm (130-400) 12/19/21 16:30 MPV 9.8 fL (7.4-10.4) 12/19/21 16:30 Neut % (Auto) 73.9 % 12/19/21 16:30 Lymph % (Auto) 16.0 % 12/19/21 16:30 Meigs % (Auto) 6.8 % 12/19/21 16:30 Eos % (Auto) 1.1 % 12/19/21 16: Baso % (Auto) 0.7 % 12/19/21 16:30 Neut # (Auto) 6.34 10^3/uL (1.8-7.7) 12/19/21 16:30 Lymph # (Auto) 1.4 10^3/uL (0.8-4.8) 12/19/21 16:30 Meigs # (Auto) 0.6 10^3/uL (0.2-0.9) 12/19/21 16:30 Eos # (Auto) 0.1 10^3/uL (0.0-0.8) 12/19/21 16:30 Baso # (Auto) 0.1 10^3/uL (0.0-0.1) 12/19/21 16:30 Nucleated RBC % (auto) 0 % 12/19/21 16:30 Nucleated RBCs # 0.0 /100WBC 12/19/21 16:30 Sodium 132 mmol/L (136-145) L 12/19/21 16:30 Potassium 4.2 mmol/L (3.5-5.1) 12/19/21 16:30 Chloride 98 mmol/L (98-107) 12/19/21 16:30 Carbon Dioxide 22 mmol/L (22-29) 12/19/21 16:30 Anion Gap 16.2 (5-19) 12/19/21 16:30 BUN 15 mg/dL (8-23) 12/19/21 16:30 Creatinine 0.9 mg/dL (0.5-0.9) 12/19/21 16:30 GFR Calculation 62.6 mL/min (90-130) L 12/19/21 16:30 Glucose 106 mg/dL (65-115) 12/19/21 16:30 Calculated Osmolality 275 mOsm/kg (285-295) L 12/19/21 16:30 Calcium 9.8 mg/dL (8.5-10.5) 12/19/21 16:30 Total Bilirubin 0.3 mg/dL (0.15-1.2) 12/19/21 16:30 AST 15 U/L (0-32) 12/19/21 16:30 ALT 15 U/L (0-33) 12/19/21 16:30 Alkaline Phosphatase 75 U/L (35-105) 12/19/21 16:30 Total Protein 7.2 g/dL (6.6-8.7) 12/19/21 16:30 Albumin 4.2 g/dL (3.5-5.2) 12/19/21 16:30 Globulin 3.0 g/dL (1.3-4.6) 12/19/21 16:30 EKG Data EKG 1: Attestation: I personally reviewed and interpreted this EKG as follows: Interpretation: Resting EKG reveals a ventricular rate of 69 bpm. Normal AZ interval QTc interval. Normal QRS duration. Normal axis. No acute ST-T wave changes noted. No evidence of shortened AZ interval or other preexcitation syndrome. Discharge Plan Discharge Patient Disposition: Home Clinical Impression: Generalized seizure Condition: Stable Prescriptions: New Ambien 10 mg tablet 10 mg PO ONCE PRN (Reason: sleep) Qty: 10 0RF No Action albuterol sulfate [ProAir HFA] 90 mcg/actuation HFA aerosol inhaler 2 puff inhalation Q4H PRN (Reason: dyspnea) Qty: 8.5 12RF folic acid 1 mg tablet 1 mg PO DAILY cholecalciferol (vitamin D3) 10 mcg (400 unit) capsule 10 mcg PO DAILY ibuprofen 800 mg tablet 800 mg PO Q8H PRN (Reason: pain) Qty: 90 2RF zinc acetate 50 mg (zinc) Capsule 50 mg PO DAILY escitalopram oxalate 10 mg tablet 10 mg PO DAILY Discharge Orders: Discharge ED (Routine); Ordered 12/19/21 Ordered By: Fercho Nguyễn Referrals: Sukhjinder Allen MD [Primary Care Provider] - Discharge Diet: Usual diet Discharge Activity: Increase activity as tolerated Patient Instructions: Opioid Safety, Pain Management Activity Restrictions/Additional Instructions: Take all your usual prescribed medication. We have provided you a short-term medication to help you sleep at night. Call your doctor tomorrow to arrange a follow-up in the next several days to discuss medications and possible ne urologic referral. Do not operate machinery or drive your car alone until cleared by your doctor. Have any recurrent symptoms you are welcome to return to the emergency department. Coding Level of Care Code ED Roll Up Guider Operator for Michelle Bro Exam Comprehensive
[2021-12-19] MEDS: sodium chloride 0.9% 1,000 ML 999 ML IV (16:33)
[2021-12-19] MEDS: LORazepam 2 mg/mL INJ 1 mL 1 MG IVP (16:33)
[2021-12-19 16:40] VITALS: BP 157/76; PULSE 75; RESP 16; O2SAT 96
[2021-12-19 16:48] LABS: Basophils # 0.1 10^3/uL (0.0-0.1); Basophils % 0.7 %; Eosinophils # 0.1 10^3/uL (0.0-0.8); Eosinophils % 1.1 %; Hematocrit 35.3 % (37.0-47.0); Hemoglobin 11.8 g/dL (11.5-15.3); Lymphocytes # 1.4 10^3/uL (0.8-4.8); Mean Corpuscular HGB Conc 33.4 g/dL (30.0-36.0); Mean Corpuscular Hemoglobin 31.8 pg (28.0-34.0); Mean Corpuscular Volume 95.1 fl (81-99); Mean Platelet Volume 9.8 fL (7.4-10.4); Monocytes # 0.6 10^3/uL (0.2-0.9); Monocytes % 6.8 %; Neutrophils # 6.34 10^3/uL (1.8-7.7); Neutrophils % 73.9 %; Nucleated Red Blood Cells % 0 %; Platelet Count 185 10^3/cmm (130-400); Red Blood Count 3.71 10^6/uL (4.1-5.3); Red Cell Distribution Width 14.7 % (12.1-15.1); White Blood Count 8.6 10^3/uL (4.0-10.0)
--- NOTE | 2021-12-19 16:51 | CTR_ITS ---
PROCEDURE INFORMATION: Exam: CT Head Without And With Contrast Exam date and time: 12/19/2021 5:26 PM Age: 66 years old Clinical indication: Condition or disease; Cancer and convulsions or seizures; History of cancer (specify primary cancer site): ; Additional info: History of cancer-new seizure today TECHNIQUE: Imaging protocol: Computed tomography of the head without and with contrast. Sagittal and coronal reformatted images were created and reviewed. Radiation optimization: All CT scans at this facility use at least one of these dose optimization techniques: automated exposure control; mA and/or kV adjustment per patient size (includes targeted exams where dose is matched to clinical indication); or iterative reconstruction. Contrast material: OMNIPAQUE 350; Contrast volume: 50 ml; Contrast route: INTRAVENOUS (IV); COMPARISON: CT head wo/w con [id number] 11/18/2021 2:40 PM RADIATION DOSE METRICS: Total DLP (mGy-cm): 1974.98 FINDINGS: Limitations: Motion artifact on multiple images that can limit evaluation. Brain: No acute intracranial hemorrhage. No acute infarct. No intra-axial or extra-axial masses. Hsieh-white matter differentiation is preserved. No cerebral edema. No extra-axial fluid collections. No midline shift. No evidence for Chiari 1 malformation. No abnormal areas of enhancement. Cerebral ventricles: No hydrocephalus. Paranasal sinuses: Small mucus retention cyst in the right sphenoid sinus. Other visualized paranasal sinuses are clear. Mastoid air cells: Mastoid air cells are clear bilaterally. Bones/joints: No acute fracture. Soft tissues: No acute abnormality of the extracranial soft tissues. Stable calcification in the right parietal scalp near the vertex. CT/CT head wo/w con [id number] IMPRESSION: 1. Motion artifact on multiple images that can limit evaluation otherwise, no acute abnormality of the brain. 2. No intracranial masses. 3. Incidental/nonacute findings are listed in the report.
[2021-12-19 17:09] LABS: Alanine Aminotransferase 15 U/L (0-33); Albumin Level 4.2 g/dL (3.5-5.2); Alkaline Phosphatase 75 U/L (35-105); Anion Gap 16.2 (5-19); Aspartate Amino Transferase 15 U/L (0-32); Blood Urea Nitrogen 15 mg/dL (8-23); Calcium 9.8 mg/dL (8.5-10.5); Carbon Dioxide 22 mmol/L (22-29); Chloride 98 mmol/L (98-107); Glomerular Filtration Rate 62.6 mL/min (90-130); Glucose 106 mg/dL (65-115); Osmolality Calculated 275 mOsm/kg (285-295); Potassium 4.2 mmol/L (3.5-5.1); Sodium 132 mmol/L (136-145); Total Bilirubin 0.3 mg/dL (0.15-1.2); Total Protein 7.2 g/dL (6.6-8.7)
[2021-12-19 17:50] VITALS: BP 142/61; PULSE 78; RESP 16; O2SAT 99
--- NOTE | 2021-12-19 18:03 | ECG_ITS ---
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 Measurements Intervals [place] Rate: 69 P: 100 PA: 169 QRS: 86 QRSD: 113 T: 81 QT: 406 QTc: 437 Interpretive Statements SINUS RHYTHM INCOMPLETE RIGHT BUNDLE BRANCH BLOCK [90+ ms QRS DURATION, TERMINAL R IN V1/V2, 40+ ms S IN I/aVL/V4/V5/V6] Compared to ECG 11/09/2020 16:29:45 Incomplete right bundle-branch block now present Ventricular premature complex(es) no longer present T-wave abnormality no longer present Possible ischemia no longer present Electronically Signed On 12-20-2021 21:49:35 CDT by Ellie Zelaya M.D. [id number]
[2021-12-19 19:21] VITALS: PULSE 73; RESP 15; TEMP 36.9
== END 2021-12-19 19:31 | disposition home or self-care (01) ==
PROVIDERS: Emergency Provider Emergency Medicine; PCP Family Medicine
DX: G40.89 Other seizures (principal); Z85.3 Personal history of malignant neoplasm of breast; Z85.118 Personal history of other malignant neoplasm of bronchus and lung; J44.9 Chronic obstructive pulmonary disease, unspecified; F17.210 Nicotine dependence, cigarettes, uncomplicated
CPT/HCPCS: 36415; 70470; 80053; 85025; 93005; 96361; 96374; 99285; J2060; J7030; Q9967

== ENCOUNTER 2021-12-27 11:30 | Oncology outpatient (recurring) (ONCR) | payer MEDICARE, SELFPAY ==
[2021-12-26 11:24] LABS: Basophils # 0.1 10^3/uL (0.0-0.1); Basophils % 0.9 %; Eosinophils # 0.1 10^3/uL (0.0-0.8); Eosinophils % 0.7 %; Hemoglobin 12.1 g/dL (11.5-15.3); Lymphocytes # 1.8 10^3/uL (0.8-4.8); Lymphocytes % 21.9 %; Mean Corpuscular HGB Conc 32.7 g/dL (30.0-36.0); Mean Corpuscular Hemoglobin 31.2 pg (28.0-34.0); Mean Corpuscular Volume 95.4 fl (81-99); Mean Platelet Volume 9.7 fL (7.4-10.4); Monocytes # 0.6 10^3/uL (0.2-0.9); Monocytes % 6.8 %; Neutrophils % 68.2 %; Nucleated Red Blood Cells % 0 %; Platelet Count 192 10^3/cmm (130-400); Red Blood Count 3.88 10^6/uL (4.1-5.3); Red Cell Distribution Width 14.8 % (12.1-15.1); White Blood Count 8.1 10^3/uL (4.0-10.0)
[2021-12-26 11:58] LABS: Alanine Aminotransferase 17 U/L (0-33); Alkaline Phosphatase 79 U/L (35-105); Anion Gap 12.7 (5-19); Aspartate Amino Transferase 16 U/L (0-32); Blood Urea Nitrogen 10 mg/dL (8-23); CA 15-3 27.6 U/mL (0-25); Calcium 9.8 mg/dL (8.5-10.5); Carbon Dioxide 26 mmol/L (22-29); Chloride 96 mmol/L (98-107); Globulin 3.1 g/dL (1.3-4.6); Glomerular Filtration Rate 62.6 mL/min (90-130); Glucose 150 mg/dL (65-115); Osmolality Calculated 274 mOsm/kg (285-295); Potassium 3.7 mmol/L (3.5-5.1); Sodium 131 mmol/L (136-145); Total Bilirubin 0.3 mg/dL (0.15-1.2); Total Protein 7.1 g/dL (6.6-8.7)
== END 2022-01-18 23:59 | disposition home or self-care (01) ==
PROVIDERS: PCP Family Medicine; Visit Provider Internal Medicine Hematology & Oncology
DX: C50.811 Malignant neoplasm of overlapping sites of right female breast; Z17.1 Estrogen receptor negative status [ER-]; Z92.21 Personal history of antineoplastic chemotherapy; Z85.118 Personal history of other malignant neoplasm of bronchus and lung; Z90.2 Acquired absence of lung [part of]; F17.210 Nicotine dependence, cigarettes, uncomplicated; Z95.828 Presence of other vascular implants and grafts
CPT/HCPCS: 36591; 80053; 85025; 86300; 99214

== ENCOUNTER 2022-01-31 13:24 | Oncology outpatient (recurring) (ONCR) | payer MEDICARE, SELFPAY ==
[2022-01-31 14:30] VITALS: BP 134/78; PULSE 74; RESP 18; TEMP 36.6; O2SAT 98
== END 2022-02-18 23:59 | disposition home or self-care (01) ==
LOC: ONCMED 13:25
PROVIDERS: PCP Family Medicine; Visit Provider Internal Medicine Hematology & Oncology
DX: Z45.2 Encounter for adjustment and management of vascular access device
CPT/HCPCS: 96523

== ENCOUNTER 2022-02-28 12:56 | Oncology outpatient (recurring) (ONCR) | payer MEDICARE, SELFPAY ==
[2022-02-28 13:21] LABS: Basophils # 0.1 10^3/uL (0.0-0.1); Basophils % 0.9 %; Eosinophils # 0.1 10^3/uL (0.0-0.8); Eosinophils % 1.5 %; Hematocrit 38.7 % (37.0-47.0); Hemoglobin 12.9 g/dL (11.5-15.3); Lymphocytes % 26.9 %; Mean Corpuscular HGB Conc 33.3 g/dL (30.0-36.0); Mean Corpuscular Hemoglobin 32.6 pg (28.0-34.0); Mean Corpuscular Volume 97.7 fl (81-99); Mean Platelet Volume 9.9 fL (7.4-10.4); Monocytes # 0.8 10^3/uL (0.2-0.9); Monocytes % 10.8 %; Neutrophils # 4.37 10^3/uL (1.8-7.7); Nucleated Red Blood Cells % 0 %; Platelet Count 168 10^3/cmm (130-400); Red Blood Count 3.96 10^6/uL (4.1-5.3); Red Cell Distribution Width 13.2 % (12.1-15.1); White Blood Count 7.4 10^3/uL (4.0-10.0)
[2022-02-28 13:55] LABS: Alanine Aminotransferase 13 U/L (0-33); Albumin Level 4.2 g/dL (3.5-5.2); Alkaline Phosphatase 66 U/L (35-105); Anion Gap 15.2 (5-19); Aspartate Amino Transferase 16 U/L (0-32); Blood Urea Nitrogen 12 mg/dL (8-23); CA 15-3 24.5 U/mL (0-25); Calcium 9.8 mg/dL (8.5-10.5); Carbon Dioxide 24 mmol/L (22-29); Chloride 101 mmol/L (98-107); Globulin 2.7 g/dL (1.3-4.6); Glomerular Filtration Rate 62.6 mL/min (90-130); Glucose 80 mg/dL (65-115); Osmolality Calculated 281 mOsm/kg (285-295); Potassium 4.2 mmol/L (3.5-5.1); Sodium 136 mmol/L (136-145); Total Bilirubin 0.4 mg/dL (0.15-1.2); Total Protein 6.9 g/dL (6.6-8.7)
[2022-03-01 11:46] LABS: CA 27.29 23 U/mL (<38)
== END 2022-03-21 23:59 | disposition home or self-care (01) ==
PROVIDERS: PCP Family Medicine; Visit Provider Internal Medicine Hematology & Oncology
DX: C50.811 Malignant neoplasm of overlapping sites of right female breast (principal); Z17.1 Estrogen receptor negative status [ER-]; C77.3 Secondary and unspecified malignant neoplasm of axilla and upper limb lymph nodes; Z85.118 Personal history of other malignant neoplasm of bronchus and lung; Z90.2 Acquired absence of lung [part of]; Z90.11 Acquired absence of right breast and nipple; F17.210 Nicotine dependence, cigarettes, uncomplicated; Z79.818 Long term (current) use of other agents affecting estrogen receptors and estrogen levels; Z92.21 Personal history of antineoplastic chemotherapy; Z92.3 Personal history of irradiation
CPT/HCPCS: 36591; 80053; 85025; 86300; 99214

== ENCOUNTER 2022-04-04 13:23 | Oncology outpatient (recurring) (ONCR) | payer MEDICARE, SELFPAY | END 2022-04-18 23:59 | disposition home or self-care (01) | LOC: ONCMED 13:23 | PROVIDERS: PCP Family Medicine; Visit Provider Internal Medicine Hematology & Oncology | DX: C50.811 Malignant neoplasm of overlapping sites of right female breast (principal); Z17.1 Estrogen receptor negative status [ER-] | CPT/HCPCS: 96523 ==

== ENCOUNTER 2022-05-04 11:23 | Oncology outpatient (recurring) (ONCR) | payer MEDICARE, SELFPAY | END 2022-05-19 23:59 | disposition home or self-care (01) | LOC: ONCMED 11:24 | PROVIDERS: PCP Family Medicine; Visit Provider Internal Medicine Hematology & Oncology | DX: C50.811 Malignant neoplasm of overlapping sites of right female breast (principal); Z17.1 Estrogen receptor negative status [ER-]; C77.3 Secondary and unspecified malignant neoplasm of axilla and upper limb lymph nodes; Z85.118 Personal history of other malignant neoplasm of bronchus and lung; Z90.2 Acquired absence of lung [part of]; Z90.11 Acquired absence of right breast and nipple; F17.210 Nicotine dependence, cigarettes, uncomplicated; Z79.818 Long term (current) use of other agents affecting estrogen receptors and estrogen levels; Z92.21 Personal history of antineoplastic chemotherapy; Z92.3 Personal history of irradiation | CPT/HCPCS: 96523 ==

== ENCOUNTER 2022-06-08 13:29 | Oncology outpatient (recurring) (ONCR) | payer MEDICARE, SELFPAY ==
[2022-06-08 14:09] LABS: Basophils # 0.1 10^3/uL (0.0-0.1); Basophils % 0.8 %; Eosinophils # 0.2 10^3/uL (0.0-0.8); Eosinophils % 1.7 %; Hematocrit 38.6 % (37.0-47.0); Lymphocytes # 1.9 10^3/uL (0.8-4.8); Lymphocytes % 21.7 %; Mean Corpuscular HGB Conc 33.7 g/dL (30.0-36.0); Mean Corpuscular Hemoglobin 32.7 pg (28.0-34.0); Mean Platelet Volume 9.7 fL (7.4-10.4); Monocytes # 0.7 10^3/uL (0.2-0.9); Monocytes % 8.1 %; Neutrophils # 5.79 10^3/uL (1.8-7.7); Neutrophils % 66.3 %; Nucleated Red Blood Cells % 0 %; Platelet Count 181 10^3/cmm (130-400); Red Blood Count 3.98 10^6/uL (4.1-5.3); White Blood Count 8.7 10^3/uL (4.0-10.0)
[2022-06-08 14:24] LABS: Alanine Aminotransferase 14 U/L (0-33); Albumin Level 4.1 g/dL (3.5-5.2); Alkaline Phosphatase 62 U/L (35-105); Aspartate Amino Transferase 16 U/L (0-32); Blood Urea Nitrogen 15 mg/dL (8-23); Calcium 9.4 mg/dL (8.5-10.5); Carbon Dioxide 22 mmol/L (22-29); Chloride 101 mmol/L (98-107); Globulin 3.1 g/dL (1.3-4.6); Glomerular Filtration Rate 71.5 mL/min (90-130); Glucose 88 mg/dL (65-115); Osmolality Calculated 280 mOsm/kg (285-295); Sodium 135 mmol/L (136-145); Total Bilirubin 0.5 mg/dL (0.15-1.2); Total Protein 7.2 g/dL (6.6-8.7)
[2022-06-08 16:21] LABS: CA 15-3 29.4 U/mL (0-25)
[2022-06-09 13:40] LABS: CA 27.29 35 U/mL (<38)
== END 2022-06-18 23:59 | disposition home or self-care (01) ==
PROVIDERS: Nurse Practitioner Family; PCP Family Medicine; Visit Provider Internal Medicine Hematology & Oncology
DX: Z08 Encounter for follow-up examination after completed treatment for malignant neoplasm; Z85.3 Personal history of malignant neoplasm of breast; Z85.118 Personal history of other malignant neoplasm of bronchus and lung; Z90.11 Acquired absence of right breast and nipple; Z90.2 Acquired absence of lung [part of]; F17.210 Nicotine dependence, cigarettes, uncomplicated; Z92.21 Personal history of antineoplastic chemotherapy; Z92.3 Personal history of irradiation; Z95.828 Presence of other vascular implants and grafts
CPT/HCPCS: 80053; 85025; 86300; 99213

== ENCOUNTER 2022-07-06 13:48 | Oncology outpatient (recurring) (ONCR) | payer MEDICARE, SELFPAY ==
[2022-07-06 14:17] VITALS: BP 115/73; PULSE 74; RESP 18; TEMP 36.3; O2SAT 98
== END 2022-07-19 23:59 | disposition home or self-care (01) ==
PROVIDERS: PCP Family Medicine; Visit Provider Internal Medicine Hematology & Oncology
DX: Z45.2 Encounter for adjustment and management of vascular access device (principal)
CPT/HCPCS: J1642

== ENCOUNTER → 2022-08-02 09:42 | Outpatient (BNVA) | payer MEDICARE, SELFPAY | PROVIDERS: PCP Family Medicine; Visit Provider Psychiatry & Neurology Neurology | DX: R51.9 Headache, unspecified (principal); I49.9 Cardiac arrhythmia, unspecified; G25.0 Essential tremor; E55.9 Vitamin D deficiency, unspecified; M79.18 Myalgia, other site; Z92.3 Personal history of irradiation; Z92.21 Personal history of antineoplastic chemotherapy; Z90.11 Acquired absence of right breast and nipple; F17.210 Nicotine dependence, cigarettes, uncomplicated; F10.90 Alcohol use, unspecified, uncomplicated | CPT/HCPCS: 99203 ==

== ENCOUNTER 2022-08-03 13:46 | Oncology outpatient (recurring) (ONCR) | payer MEDICARE, SELFPAY ==
[2022-08-03 14:22] VITALS: BP 114/77; PULSE 90; RESP 18; TEMP 36.6; O2SAT 96
[2022-08-03 15:22] LABS: 25 Hydroxy Vitamin D 43 ng/mL (30-100); Magnesium 1.5 mg/dL (1.7-2.3); Thyroid Stimulating Hormone 2.79 uIU/mL (0.27-4.20); Vitamin B12 783 pg/mL (232-1245)
[2022-08-03 15:47] LABS: Folate Level > 20.0 ng/mL (4.8-37.3)
[2022-08-03 15:49] LABS: Free T4 Free Thyroxine 1.13 ng/dL (0.82-1.77); T3 Free 2.2 PG/ML (2.0-4.4)
[2022-08-08 13:50] LABS: Copper Level 128 mcg/dL (70-175)
[2022-08-09 09:40] LABS: Methylmalonic Acid 124 nmol/L (87-318)
== END 2022-08-18 23:59 | disposition home or self-care (01) ==
PROVIDERS: Psychiatry & Neurology Neurology; PCP Family Medicine; Visit Provider Internal Medicine Hematology & Oncology
DX: R56.9 Unspecified convulsions (principal); G25.0 Essential tremor; R51.9 Headache, unspecified; E55.9 Vitamin D deficiency, unspecified
CPT/HCPCS: 36591; 82306; 82525; 82607; 82746; 83735; 83921; 84439; 84443; 84481; J1642

== ENCOUNTER 2022-09-11 10:58 | Oncology outpatient (recurring) (ONCR) | payer MEDICARE, SELFPAY ==
[2022-09-11 11:01] VITALS: BP 128/73; PULSE 69; RESP 18; TEMP 35.9; O2SAT 98; BMI 20.5
[2022-09-11 11:13] LABS: Basophils # 0.1 10^3/uL (0.0-0.1); Eosinophils # 0.1 10^3/uL (0.0-0.8); Eosinophils % 1.8 %; Hematocrit 38.9 % (37.0-47.0); Lymphocytes # 1.9 10^3/uL (0.8-4.8); Lymphocytes % 27.4 %; Mean Corpuscular HGB Conc 33.4 g/dL (30.0-36.0); Mean Corpuscular Volume 98.7 fl (81-99); Mean Platelet Volume 9.9 fL (7.4-10.4); Monocytes # 0.7 10^3/uL (0.2-0.9); Monocytes % 10.1 %; Neutrophils # 4.01 10^3/uL (1.8-7.7); Neutrophils % 58.8 %; Nucleated Red Blood Cells % 0 %; Platelet Count 172 10^3/cmm (130-400); Red Blood Count 3.94 10^6/uL (4.1-5.3); Red Cell Distribution Width 12.8 % (12.1-15.1); White Blood Count 6.8 10^3/uL (4.0-10.0)
[2022-09-11 12:36] LABS: Alanine Aminotransferase 16 U/L (0-33); Albumin Level 4.3 g/dL (3.5-5.2); Alkaline Phosphatase 55 U/L (35-105); Aspartate Amino Transferase 20 U/L (0-32); Blood Urea Nitrogen 11 mg/dL (8-23); Calcium 9.5 mg/dL (8.5-10.5); Carbon Dioxide 22 mmol/L (22-29); Globulin 2.4 g/dL (1.3-4.6); Glomerular Filtration Rate 71.5 mL/min (90-130); Glucose 107 mg/dL (65-115); Total Bilirubin 0.6 mg/dL (0.15-1.2); Total Protein 6.7 g/dL (6.6-8.7)
[2022-09-11 12:46] LABS: CA 15-3 28.6 U/mL (0-25)
[2022-09-11 12:54] LABS: Chloride 95 mmol/L (98-107); Osmolality Calculated 266 mOsm/kg (285-295); Sodium 128 mmol/L (136-145)
[2022-09-14 03:39] LABS: CA 27.29 33 U/mL (<38)
== END 2022-09-18 23:59 | disposition home or self-care (01) ==
PROVIDERS: Nurse Practitioner Family; PCP Family Medicine; Visit Provider Internal Medicine Hematology & Oncology
DX: Z95.828 Presence of other vascular implants and grafts; C34.12 Malignant neoplasm of upper lobe, left bronchus or lung; F17.210 Nicotine dependence, cigarettes, uncomplicated; Z90.11 Acquired absence of right breast and nipple; C50.811 Malignant neoplasm of overlapping sites of right female breast; Z17.1 Estrogen receptor negative status [ER-]
CPT/HCPCS: 36591; 80053; 85025; 86300; 99214; J1642

== ENCOUNTER 2022-09-12 13:52 | Outpatient (CLI) | payer MEDICARE, SELFPAY ==
--- NOTE | 2022-09-12 14:00 | XR_ITS ---
WS: [id number] SCREENING DEXA SCAN [facility] CLINICAL INFORMATION: postmenopausal COMPARISON: 2020 FINDINGS: The L1-L4 bone mineral density measures 1.426 g/cm2. This corresponds to a T score score of 2.0 and Z score of 3.8. Left femoral neck bone mineral density measures 0.707 g/cm2. This corresponds to a T score of -2.4 an d Z score of -1.0. Right femoral neck bone mineral density measures 0.731 g/cm2. This corresponds to a T score -2.2of an d Z score of -0.8. Mean femoral neck bone mineral density measures 0.719 g/cm2. This corresponds to a T score of -2.3 an d Z score of -0.9. XR/XR DEXA axial skeleton* 29315 IMPRESSION: Normal bone mineralization lumbar spine. Osteopenia femoral necks. Patient's FRAX calculated 10 year probability for major osteoporotic fracture i s 16.7 % and osteoporotic hip fracture is 6.1%. Bone mineral density lumbar spine has decreased -4.8% since 2020 Bone mineral density in the femoral necks is decreased -9.4% since 2020
== END 2022-09-12 13:53 | disposition home or self-care (01) ==
PROVIDERS: PCP Family Medicine; Visit Provider Nurse Practitioner Family
DX: Z13.820 Encounter for screening for osteoporosis (principal); Z78.0 Asymptomatic menopausal state; C50.811 Malignant neoplasm of overlapping sites of right female breast; M85.852 Other specified disorders of bone density and structure, left thigh; M85.851 Other specified disorders of bone density and structure, right thigh
CPT/HCPCS: 77080

== ENCOUNTER → 2022-09-18 09:55 | Outpatient (BNVA) | payer MEDICARE, SELFPAY | PROVIDERS: PCP Family Medicine; Visit Provider Internal Medicine Cardiovascular Disease | DX: I49.9 Cardiac arrhythmia, unspecified (principal) | CPT/HCPCS: 93005; 99204 ==

== ENCOUNTER 2022-09-28 10:55 | Outpatient (CLI) | payer MEDICARE, SELFPAY ==
--- NOTE | 2022-09-28 11:00 | MR_ITS ---
WS: [id number] MRI BRAIN WITH AND WITHOUT CONTRAST HISTORY: G25.0 - Essential tremor COMPARISON: Noncontrast CT head 12/19/2021 TECHNIQUE: Multiplanar imaging performed through the brain with MultiHance 12 ml's IV. Quality of this examination is significantly degraded by rapid sequences to aluminate motion artifact . No acute infarct. Limited visualization of the chandler-white matter due to sequences obtained. There are scattered areas of increased T2 signal in the subcortical white matter. Bilateral increased T2 signa l in the frontal lobe cortex towards the vertex. Additional scattered areas surrounding the occipital horns. No prior infarct. No associated hemosiderin. No significant asymmetry of the hippocampal form ations. No susceptibility artifacts or prior lacunar infarcts. Ventricles and extra-axial spaces are normal. Clivus and pituitary gland are normal. Posterior fossa and brainstem are limited by sequences obtained. Postcontrast images are negative for masses or vascular malformations. Dural venous sinuses are normal. Paranasal sinuses: Well aerated with no significant disease. Mastoid air cells: Small amount of fluid in the left mastoid air cells. Calvarium and scalp: Normal. IMPRESSION: 1. No acute infarct or hemorrhage. 2. Scattered subcortical areas of increased T2 signal. These may be related to migraines, trauma, sm all vessel ischemic disease or smoking. No associated hemosiderin to suggest trauma. 3. No masses. No prior infarct.
[2022-09-28] MEDS: gadobenate dimeglumine 20 mL vial IV (11:57)
== END 2022-09-28 10:56 | disposition home or self-care (01) ==
PROVIDERS: PCP Family Medicine; Visit Provider Psychiatry & Neurology Neurology
DX: G25.0 Essential tremor (principal); R51.9 Headache, unspecified; G89.29 Other chronic pain
CPT/HCPCS: 70553; A9577

== ENCOUNTER 2022-10-10 13:22 | Oncology outpatient (recurring) (ONCR) | payer MEDICARE, SELFPAY ==
[2022-10-10 13:29] VITALS: BP 122/76; PULSE 79; RESP 18; TEMP 36.3; O2SAT 97
== END 2022-10-19 23:59 | disposition home or self-care (01) ==
PROVIDERS: PCP Family Medicine; Visit Provider Internal Medicine Hematology & Oncology
DX: Z45.2 Encounter for adjustment and management of vascular access device (principal)
CPT/HCPCS: J1642

== ENCOUNTER → 2022-10-25 12:07 | Outpatient (BNVA) | payer MEDICARE, SELFPAY | PROVIDERS: PCP Family Medicine; Visit Provider Family Medicine | DX: E87.1 Hypo-osmolality and hyponatremia (principal) | CPT/HCPCS: 80048 ==

== ENCOUNTER 2022-10-31 06:44 | Outpatient (CLI) | payer MEDICARE, SELFPAY ==
--- NOTE | 2022-10-31 07:00 | CT_ITS ---
WS: [id number] CT ANGIOGRAM CEREBRAL AND CAROTID ARTERIES HISTORY: G25.0 - Essential tremor TECHNIQUE: CT angiogram is performed of the carotid and cerebral arteries. During arterial injection imaging is obtained from the skull vertex to the aortic arch in 1.25 mm imaging. Coronal and sagittal reformats are submitted. Additional multi planar reformats of the carotid and cerebral arteries are submitted, MIP imaging also reviewed. NASCET criteria utilized. [facility] at least one of these dose optimization techniques: automated exposure control; mA and/or kV adjust ment per patient size (includes targeted exams where dose is matched to clinical indication); or iter ative reconstruction. CONTRAST: Omnipaque 350; 100 mL IV. DLP: 1917.70 mGy.cm COMPARISON: None available. Carotid Angiogram: Right carotid: Common carotid artery: Arises normally from the innominate artery. No significant plaque or stenosis. Internal carotid artery: No plaque or stenosis. External carotid artery: Patent. Left carotid: Common carotid artery: Normally arises from the aorta. Mild scattered plaque in the cervical common c arotid artery. There is also a small amount of plaque at the bifurcation. No high-grade stenosis. Internal carotid artery: Small amount of plaque with no high-grade stenosis. Minimal narrowing of the origin ICA. External carotid artery: Patent. Right vertebral artery: Unremarkable. Left vertebral artery: Unremarkable. Arises normally from the subclavian artery. Subclavian arteries: No stenosis or significant abnormality. Upper thorax: Centrilobular emphysema. More pronounced apical thickening on the LEFT. Thyroid gland: Normal. Osseous structures: Curvature and scoliosis. CEREBRAL ANGIOGRAM: Intracranial vertebral arteries: Normal with no significant atherosclerosis. Basilar artery: No significant stenosis or occlusion. No aneurysm. Intracranial Internal carotid arteries: Demonstrates no significant stenosis or plaque. Mildly compro mised by motion artifact secondary to patient's tremors. Middle cerebral arteries: Normal. Anterior cerebral arteries and ACOM: Normal. Posterior cerebral arteries and PCOM's: Normal. Dural venous sinuses are normally enhancing. Mastoid air cells: Normal. Paranasal sinuses: Normal. Calvarium: Normal. IMPRESSION: 1. No high-grade cervical carotid artery stenosis. Mild plaque in the LEFT carotid bifurcation. Sten osis less than 50%. 2. Unremarkable jamul of Gtz.
[2022-10-31] MEDS: iohexol 350 mg/mL 500 mL Btl (per mL) IV (07:20)
== END 2022-10-31 06:45 | disposition home or self-care (01) ==
LOC: RAD 06:45
PROVIDERS: PCP Family Medicine; Visit Provider Psychiatry & Neurology Neurology
DX: I65.22 Occlusion and stenosis of left carotid artery (principal); G25.0 Essential tremor
CPT/HCPCS: 70496; 70498; Q9967

== ENCOUNTER 2022-11-07 13:01 | Oncology outpatient (recurring) (ONCR) | payer MEDICARE, SELFPAY ==
[2022-11-07 13:09] VITALS: BP 135/79; PULSE 54; RESP 16; TEMP 36.3; O2SAT 96
== END 2022-11-18 23:59 | disposition home or self-care (01) ==
PROVIDERS: PCP Family Medicine; Visit Provider Internal Medicine Medical Oncology
DX: Z45.2 Encounter for adjustment and management of vascular access device
CPT/HCPCS: 36591; J1642

== ENCOUNTER 2022-12-04 08:14 | Outpatient (CLI) | payer MEDICARE, SELFPAY ==
--- NOTE | 2022-12-04 08:30 | MM_ITS ---
WS: [id number] DIAGNOSTIC LEFT DIGITAL TOMOSYNTHESIS MAMMOGRAPHY WITH CAD. HISTORY: history of breast cancer;RT MST COMPARISON: 10/26/2021 and 09/23/2020 Technique: CC, MLO and ML views. Tomosynthesis. Breast composition: There are scattered areas of fibroglandular density. Benign calcifications. Mild distortion of the anterior breast with slight nipple retraction similar to the prior examinations. IMPRESSION: MM/[place] [id number] BI-RADS: 2-Benign FOLLOW UP: 1 Year Follow-up
== END 2022-12-04 08:15 | disposition home or self-care (01) ==
PROVIDERS: PCP Family Medicine; Visit Provider Family Medicine
DX: Z85.3 Personal history of malignant neoplasm of breast (principal); Z90.11 Acquired absence of right breast and nipple
CPT/HCPCS: 77061; G0279

== ENCOUNTER 2022-12-11 12:53 | Oncology outpatient (recurring) (ONCR) | payer MEDICARE, SELFPAY ==
[2022-12-11 13:05] VITALS: BP 110/66; PULSE 64; RESP 16; TEMP 36.2; O2SAT 95
== END 2022-12-19 23:59 | disposition home or self-care (01) ==
PROVIDERS: PCP Family Medicine; Visit Provider Internal Medicine Medical Oncology
DX: Z45.2 Encounter for adjustment and management of vascular access device
CPT/HCPCS: 96523; J1642

== ENCOUNTER 2023-01-26 07:51 | Oncology outpatient (recurring) (ONCR) | payer MEDICARE, SELFPAY ==
[2023-01-26 08:19] VITALS: BP 87/58; PULSE 75; TEMP 36.3; O2SAT 98
[2023-01-26 08:38] LABS: Basophils # 0.1 10^3/uL (0.0-0.1); Basophils % 0.9 %; Eosinophils # 0.1 10^3/uL (0.0-0.8); Eosinophils % 1.2 %; Hematocrit 38.7 % (36-47); Lymphocytes # 1.5 10^3/uL (0.8-4.8); Lymphocytes % 21.5 %; Mean Corpuscular HGB Conc 33.3 g/dL (30-55); Mean Corpuscular Hemoglobin 32.3 pg (27-33); Mean Platelet Volume 10.2 fL (7.4-10.4); Monocytes # 0.7 10^3/uL (0.2-0.9); Monocytes % 9.6 %; Neutrophils # 4.48 10^3/uL (1.8-7.7); Neutrophils % 65.9 %; Nucleated Red Blood Cells % 0 %; Platelet Count 156 10^3/cmm (157-399); Red Blood Count 3.99 10^6/uL (3.85-5.65); Red Cell Distribution Width 12.9 % (12.1-15.1); White Blood Count 6.79 10^3/uL (3.29-11.43)
[2023-01-26 09:00] LABS: Alanine Aminotransferase 16 U/L (0-33); Alkaline Phosphatase 63 U/L (35-105); Anion Gap 17.5 (5-19); Aspartate Amino Transferase 21 U/L (0-32); Blood Urea Nitrogen 13 mg/dL (8-23); Carbon Dioxide 22 mmol/L (22-29); Chloride 100 mmol/L (98-107); Globulin 2.7 g/dL (1.3-4.6); Glomerular Filtration Rate 62.5 mL/min (90-130); Glucose 124 mg/dL (65-115); Osmolality Calculated 282 mOsm/kg (285-295); Potassium 4.5 mmol/L (3.5-5.1); Sodium 135 mmol/L (136-145); Total Bilirubin 0.5 mg/dL (0.15-1.2); Total Protein 6.7 g/dL (6.6-8.7)
[2023-01-30 05:49] LABS: CA 27.29 36 U/mL (<38)
== END 2023-02-18 23:59 | disposition home or self-care (01) ==
PROVIDERS: Nurse Practitioner Family; PCP Family Medicine; Visit Provider Internal Medicine Medical Oncology
DX: Z45.2 Encounter for adjustment and management of vascular access device (principal); C50.811 Malignant neoplasm of overlapping sites of right female breast; Z78.0 Asymptomatic menopausal state; Z90.11 Acquired absence of right breast and nipple; C34.12 Malignant neoplasm of upper lobe, left bronchus or lung; Z95.828 Presence of other vascular implants and grafts; K59.00 Constipation, unspecified; Z79.899 Other long term (current) drug therapy
CPT/HCPCS: 36591; 80053; 85025; 86300; 99214; J1642

== ENCOUNTER → 2023-01-31 13:49 | Outpatient (BNVA) | payer MEDICARE, SELFPAY | PROVIDERS: PCP Family Medicine; Visit Provider Psychiatry & Neurology Neurology | DX: G25.0 Essential tremor (principal); R51.9 Headache, unspecified; G89.29 Other chronic pain; M79.18 Myalgia, other site | CPT/HCPCS: 99212 ==

== ENCOUNTER 2023-02-27 14:17 | Oncology outpatient (recurring) (ONCR) | payer MEDICARE, SELFPAY | END 2023-03-21 23:59 | disposition home or self-care (01) | PROVIDERS: PCP Family Medicine; Visit Provider Internal Medicine Medical Oncology | DX: Z45.2 Encounter for adjustment and management of vascular access device (principal) | CPT/HCPCS: 96523; J1642 ==

== ENCOUNTER 2023-03-27 14:24 | Oncology outpatient (recurring) (ONCR) | payer MEDICARE, SELFPAY | END 2023-04-19 23:59 | disposition home or self-care (01) | PROVIDERS: PCP Family Medicine; Visit Provider Internal Medicine Medical Oncology | DX: Z45.2 Encounter for adjustment and management of vascular access device (principal) | CPT/HCPCS: 96523; J1642 ==

== ENCOUNTER 2023-04-24 14:26 | Oncology outpatient (recurring) (ONCR) | payer MEDICARE, SELFPAY | END 2023-05-20 23:59 | disposition home or self-care (01) | PROVIDERS: PCP Family Medicine; Visit Provider Internal Medicine Medical Oncology | DX: Z45.2 Encounter for adjustment and management of vascular access device (principal) | CPT/HCPCS: 96523; J1642 ==

== ENCOUNTER → 2023-05-03 09:42 | Outpatient (BNVA) | payer MEDICARE, SELFPAY | PROVIDERS: PCP Family Medicine; Visit Provider Internal Medicine Cardiovascular Disease | DX: I49.9 Cardiac arrhythmia, unspecified (principal); J44.9 Chronic obstructive pulmonary disease, unspecified; C34.12 Malignant neoplasm of upper lobe, left bronchus or lung; F17.210 Nicotine dependence, cigarettes, uncomplicated | CPT/HCPCS: 99213 ==

== ENCOUNTER 2023-05-29 12:30 | Oncology outpatient (recurring) (ONCR) | payer MEDICARE, SELFPAY ==
[2023-05-29 13:01] LABS: Basophils # 0.1 10^3/uL (0.0-0.1); Eosinophils # 0.1 10^3/uL (0.0-0.8); Eosinophils % 1.4 %; Hematocrit 37.3 % (36-47); Lymphocytes # 2.2 10^3/uL (0.8-4.8); Lymphocytes % 30.9 %; Mean Corpuscular Hemoglobin 31.8 pg (27-33); Mean Corpuscular Volume 93.3 fl (85-98); Mean Platelet Volume 10.1 fL (7.4-10.4); Monocytes # 0.7 10^3/uL (0.2-0.9); Monocytes % 10.3 %; Neutrophils # 3.89 10^3/uL (1.8-7.7); Neutrophils % 55.7 %; Nucleated Red Blood Cells % 0 %; Platelet Count 157 10^3/cmm (157-399); Red Cell Distribution Width 12.6 % (12.1-15.1); White Blood Count 6.99 10^3/uL (3.29-11.43)
[2023-05-29 13:26] LABS: Alanine Aminotransferase 25 U/L (0-33); Albumin Level 4.1 g/dL (3.5-5.2); Alkaline Phosphatase 74 U/L (35-105); Anion Gap 14.2 (5-19); Aspartate Amino Transferase 30 U/L (0-32); Blood Urea Nitrogen 12 mg/dL (8-23); CA 15-3 27.3 U/mL (0-25); Calcium 9.5 mg/dL (8.5-10.5); Carbon Dioxide 25 mmol/L (22-29); Chloride 101 mmol/L (98-107); Globulin 2.8 g/dL (1.3-4.6); Glomerular Filtration Rate 83.2 mL/min (90-130); Glucose 86 mg/dL (65-115); Osmolality Calculated 281 mOsm/kg (285-295); Potassium 4.2 mmol/L (3.5-5.1); Sodium 136 mmol/L (136-145); Total Bilirubin 0.3 mg/dL (0.15-1.2); Total Protein 6.9 g/dL (6.6-8.7)
[2023-05-31 13:39] LABS: CA 27.29 31 U/mL (<38)
== END 2023-06-19 23:59 | disposition home or self-care (01) ==
PROVIDERS: Nurse Practitioner Family; PCP Family Medicine; Visit Provider Internal Medicine Medical Oncology
DX: C50.811 Malignant neoplasm of overlapping sites of right female breast (principal); Z53.9 Procedure and treatment not carried out, unspecified reason; Z90.11 Acquired absence of right breast and nipple; C34.12 Malignant neoplasm of upper lobe, left bronchus or lung; Z95.828 Presence of other vascular implants and grafts; F17.210 Nicotine dependence, cigarettes, uncomplicated; Z78.0 Asymptomatic menopausal state
CPT/HCPCS: 36591; 80053; 85025; 86300; 99213

== ENCOUNTER → 2023-06-06 09:39 | Outpatient (BNVA) | payer MEDICARE, SELFPAY | PROVIDERS: PCP Family Medicine; Visit Provider Nurse Practitioner Family | DX: L21.8 Other seborrheic dermatitis (principal); D22.10 Melanocytic nevi of unspecified eyelid, including canthus; D22.62 Melanocytic nevi of left upper limb, including shoulder; L57.8 Other skin changes due to chronic exposure to nonionizing radiation; L81.4 Other melanin hyperpigmentation | CPT/HCPCS: 99204 ==

== ENCOUNTER 2023-06-13 07:45 | Outpatient (CLI) | payer MEDICARE, SELFPAY ==
--- NOTE | 2023-06-13 08:00 | CT_ITS ---
WS: [id number] LDCT LUNG CANCER SCREENING HISTORY: tobacco abuse TECHNIQUE: Axial imaging performed from the apices to 1 cm below the costophrenic angles. Coronal and sagittal reformats are submitted with axial MIP series. All CT scans at [facility] use at least one of these dose optimization techniques: automated exposure control; mA and/or kV adjustment per patient size (includes targeted exams where dose is matched to clinical indication); or iterativ e reconstruction. DLP: 51.69 mGy.cm DIvol: Mean CTDIvol: 0.80 (mGy) COMPARISON: 09/01/2020 Diagnostic quality: Satisfactory Lungs: Hyperinflated lungs. Slight volume loss in the LEFT thorax. Scarring and pleural thickening an d fibrosis noted in the LEFT upper lobe. The focal curvilinear soft tissue scar measuring 1.9 x 1.5 c m is reidentified. This was negative on PET/CT from 2020. There is mild traction bronchiectasis. 4 mm slightly spiculated nodule RIGHT lower lobe. Additional 4 mm nodule RIGHT lower lobe, image 249 of s robbin 4. Heart: Normal size heart with no pericardial effusion.. No pericardial effusion. Other findings: Moderate atherosclerosis aorta. No adenopathy identified. Prior RIGHT mastectomy. LEF T subclavian Mediport. Prior cholecystectomy. No LEFT kidney in the renal fossa. 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 Increase in thoracic kyphosis. IMPRESSION: CT/CT lung screening [id number] LUNG-RADS: 3-Probably Benign FOLLOW UP: 6 Month LDCT OTHER FINDINGS (S MODIFIER): None. 6-month follow-up to reevaluate the 2 nodules in the RIGHT lower lobe.
== END 2023-06-13 07:46 | disposition home or self-care (01) ==
LOC: RAD 07:46
PROVIDERS: PCP Family Medicine; Visit Provider Nurse Practitioner Family
DX: Z12.2 Encounter for screening for malignant neoplasm of respiratory organs (principal); F17.210 Nicotine dependence, cigarettes, uncomplicated; I70.0 Atherosclerosis of aorta; R91.8 Other nonspecific abnormal finding of lung field
CPT/HCPCS: 71271

== ENCOUNTER 2023-06-25 13:55 | Oncology outpatient (recurring) (ONCR) | payer MEDICARE, SELFPAY | END 2023-07-20 23:59 | disposition home or self-care (01) | LOC: ONCMED 13:56 | PROVIDERS: PCP Family Medicine; Visit Provider Internal Medicine Medical Oncology | DX: Z45.2 Encounter for adjustment and management of vascular access device (principal) ==

== ENCOUNTER → 2023-07-09 10:11 | Outpatient (BNVA) | payer MEDICARE, SELFPAY | PROVIDERS: PCP Family Medicine; Visit Provider Nurse Practitioner Family | DX: L21.8 Other seborrheic dermatitis (principal); D22.10 Melanocytic nevi of unspecified eyelid, including canthus; D22.62 Melanocytic nevi of left upper limb, including shoulder; L57.8 Other skin changes due to chronic exposure to nonionizing radiation; L81.4 Other melanin hyperpigmentation | CPT/HCPCS: 99214 ==

== ENCOUNTER 2023-07-23 14:11 | Oncology outpatient (recurring) (ONCR) | payer MEDICARE, SELFPAY | END 2023-08-19 23:59 | disposition home or self-care (01) | PROVIDERS: PCP Family Medicine; Visit Provider Internal Medicine Medical Oncology | DX: Z45.2 Encounter for adjustment and management of vascular access device (principal) | CPT/HCPCS: 96523 ==

== ENCOUNTER → 2023-08-13 14:25 | Outpatient (BNVA) | payer MEDICARE, SELFPAY | PROVIDERS: PCP Family Medicine; Visit Provider Nurse Practitioner Family | DX: L21.8 Other seborrheic dermatitis (principal); D22.10 Melanocytic nevi of unspecified eyelid, including canthus; L23.9 Allergic contact dermatitis, unspecified cause | CPT/HCPCS: 99214 ==

== ENCOUNTER → 2023-09-12 13:44 | Outpatient (BNVA) | payer MEDICARE, SELFPAY | PROVIDERS: PCP Family Medicine; Visit Provider Psychiatry & Neurology Neurology | DX: G25.0 Essential tremor (principal); R51.9 Headache, unspecified; G89.29 Other chronic pain; M79.18 Myalgia, other site | CPT/HCPCS: 99213; G0463 ==

== ENCOUNTER 2023-09-17 13:30 | Oncology outpatient (recurring) (ONCR) | payer MEDICARE, SELFPAY | END 2023-09-19 23:59 | disposition home or self-care (01) | PROVIDERS: PCP Family Medicine; Visit Provider Internal Medicine Medical Oncology | DX: Z53.9 Procedure and treatment not carried out, unspecified reason (principal); Z45.2 Encounter for adjustment and management of vascular access device | CPT/HCPCS: 96523 ==

== ENCOUNTER 2023-10-17 10:00 | Oncology outpatient (recurring) (ONCR) | payer MEDICARE, SELFPAY ==
--- NOTE | 2023-10-17 10:00 | CTR_ITS ---
PROCEDURE INFORMATION: Exam: CT Chest Without Contrast; Diagnostic Exam date and time: 10/17/2023 10:22 AM Age: 68 years old Clinical indication: Abnormal findings; Abnormal radiologic exam of lung or chest; Prior surgery; Surgery date: 6+ months; Surgery type: Mastectomy, left lung; Patient HX: HX of lung and breast cancer; Additional info: Abnormal CT imaging TECHNIQUE: Imaging protocol: Diagnostic computed tomography of the chest without contrast. Radiation optimization: All CT scans at this facility use at least one of these dose optimization techniques: automated exposure control; mA and/or kV adjustment per patient size (includes targeted exams where dose is matched to clinical indication); or iterative reconstruction. COMPARISON: CT lung screening [id number] 06/13/2023 8:12 AM RADIATION DOSE METRICS: Total DLP (mGy-cm): 251.62 FINDINGS: Tubes, catheters and devices: Left port infusion catheter is present tip in SVC. Thyroid: No significant thyroid pathology. Lungs: A focal spiculated nodule of the right lower lobe on the prior exam (series 4, image 166) as decreased solid component now appears as a small conglomeration of predominantly reticular opacities. This measures a proximally 1.0 x 0.6 cm on series 4, image 30. Areas of bilateral pulmonary scarring and severe pulmonary emphysema are again noted. Wedge resection involving the posteromedial aspect of the left upper lobe associated scarring again noted. Peripheral irregular opacities at both lung apices are not significantly changed with component of calcification in some lesions most likely representing scarring. Additionally there are some dilated bronchi mucous plugging (example left upper lobe series 4, image 18 and 19). Pleural spaces: No pleural effusion. Heart: Small pericardial effusion. Coronary arteries: Coronary artery calcifications. Lymph nodes: No evidence of lymphadenopathy. Vasculature: No evidence of thoracic aortic aneurysm. Diaphragm: Small hiatal hernia. Gallbladder and biliary ducts: Prior cholecystectomy. 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 Bones/joints: Mild degenerative change present in the spine. Mild loss of height of the T8 vertebral bodies unchanged compared with the prior exam with no underlying pathologic lesion visualized. Soft tissues: Prior right mastectomy. CT/CT chest wo con [id number] IMPRESSION: 1. Interval decrease in solid nodular component of right lower lobe nodule as detailed above. Six-month follow-up recommended for continued surveillance. 2. Remainder of exam is stable with extensive pulmonary abnormalities again noted as detailed above. COMMENTS: The presence of pulmonary emphysema on CT is an independent risk factor for lung cancer. In the absence of a history or active diagnosis of lung cancer, it is recommended that this patient with emphysema be evaluated for enrollment in a low dose CT lung cancer screening program.
== END 2023-10-20 23:59 | disposition home or self-care (01) ==
LOC: ONCMED 10-19 08:36
PROVIDERS: PCP Family Medicine; Visit Provider Internal Medicine Medical Oncology
DX: Z53.9 Procedure and treatment not carried out, unspecified reason (principal); R91.8 Other nonspecific abnormal finding of lung field; J43.9 Emphysema, unspecified
CPT/HCPCS: 71250; 96523

== ENCOUNTER 2023-11-12 13:26 | Oncology outpatient (recurring) (ONCR) | payer MEDICARE, SELFPAY | END 2023-11-19 23:59 | disposition home or self-care (01) | LOC: ONCMED 13:27 | PROVIDERS: PCP Family Medicine; Visit Provider Internal Medicine Medical Oncology | DX: Z45.2 Encounter for adjustment and management of vascular access device | CPT/HCPCS: 96523 ==

== ENCOUNTER 2023-12-10 13:00 | Oncology outpatient (recurring) (ONCR) | payer MEDICARE, SELFPAY ==
[2023-12-10 13:22] LABS: Basophils # 0.1 10^3/uL (0.0-0.1); Basophils % 1.3 %; Eosinophils # 0.2 10^3/uL (0.0-0.8); Eosinophils % 3.2 %; Hematocrit 39.7 % (36-47); Lymphocytes # 2.2 10^3/uL (0.8-4.8); Lymphocytes % 30.3 %; Mean Corpuscular Hemoglobin 31.3 pg (27-33); Mean Corpuscular Volume 94.7 fl (85-98); Mean Platelet Volume 9.5 fL (7.4-10.4); Monocytes # 0.7 10^3/uL (0.2-0.9); Monocytes % 9.3 %; Neutrophils # 3.88 10^3/uL (1.8-7.7); Neutrophils % 54.5 %; Nucleated Red Blood Cells % 0 %; Platelet Count 186 10^3/cmm (157-399); Red Blood Count 4.19 10^6/uL (3.85-5.65); Red Cell Distribution Width 13.3 % (12.1-15.1); White Blood Count 7.12 10^3/uL (3.29-11.43)
[2023-12-10 13:49] LABS: Alanine Aminotransferase 21 U/L (0-33); Albumin Level 4.1 g/dL (3.5-5.2); Alkaline Phosphatase 56 U/L (35-105); Anion Gap 17.3 (5-19); Aspartate Amino Transferase 21 U/L (0-32); Blood Urea Nitrogen 7 mg/dL (8-23); CA 15-3 29.6 U/mL (0-25); Calcium 8.8 mg/dL (8.5-10.5); Carbon Dioxide 23 mmol/L (22-29); Chloride 98 mmol/L (98-107); Creatinine Clr Calc Pharmacy 63.7526; Globulin 2.7 g/dL (1.3-4.6); Glomerular Filtration Rate 71.3 mL/min (90-130); Glucose 95 mg/dL (65-115); Osmolality Calculated 276 mOsm/kg (285-295); Potassium 4.3 mmol/L (3.5-5.1); Sodium 134 mmol/L (136-145); Total Bilirubin 0.7 mg/dL (0.15-1.2); Total Protein 6.8 g/dL (6.6-8.7)
[2023-12-11 09:30] LABS: CA 27.29 35 U/mL (<38)
== END 2023-12-20 23:59 | disposition home or self-care (01) ==
PROVIDERS: PCP Family Medicine; Visit Provider Nurse Practitioner Family
DX: C50.811 Malignant neoplasm of overlapping sites of right female breast; Z90.11 Acquired absence of right breast and nipple; C34.12 Malignant neoplasm of upper lobe, left bronchus or lung; Z95.828 Presence of other vascular implants and grafts; C77.3 Secondary and unspecified malignant neoplasm of axilla and upper limb lymph nodes; Z53.9 Procedure and treatment not carried out, unspecified reason
CPT/HCPCS: 36591; 80053; 85025; 86300; 99214

== ENCOUNTER 2024-01-07 14:19 | Oncology outpatient (recurring) (ONCR) | payer MEDICARE, SELFPAY ==
--- NOTE | 2023-12-25 14:30 | MM_ITS ---
WS: [id number] DIAGNOSTIC LEFT DIGITAL TOMOSYNTHESIS MAMMOGRAPHY WITH CAD. HISTORY: surveillance COMPARISON: 12/04/2022, 12/26/2021 Technique: CC, MLO and ML views. Breast composition: The breasts are heterogeneously dense, which may obscure small masses. Benign coarse calcifications within the LEFT breast. Additional very tiny calcifications scattered th roughout the breast are unchanged. No mass or distortion. No nipple retraction. MM/MM diag LT tomosynthesis [id number] IMPRESSION: BI-RADS: 2 - Benign FOLLOW UP: 1 Year Follow-up
== END 2024-01-19 23:59 | disposition home or self-care (01) ==
LOC: ONCMED 14:20
PROVIDERS: PCP Family Medicine; Visit Provider Nurse Practitioner Family
DX: Z45.2 Encounter for adjustment and management of vascular access device (principal)
CPT/HCPCS: 77061; 96523; G0279

== ENCOUNTER 2024-02-04 14:13 | Oncology outpatient (recurring) (ONCR) | payer MEDICARE, SELFPAY | END 2024-02-19 23:59 | disposition home or self-care (01) | LOC: ONCMED 14:13 | PROVIDERS: PCP Family Medicine; Visit Provider Nurse Practitioner Family | DX: Z45.2 Encounter for adjustment and management of vascular access device (principal) | CPT/HCPCS: 36591 ==

== ENCOUNTER → 2024-02-14 10:28 | Outpatient (BNVA) | payer MEDICARE, SELFPAY | PROVIDERS: PCP Family Medicine; Visit Provider Nurse Practitioner Family | DX: L21.8 Other seborrheic dermatitis (principal); D69.2 Other nonthrombocytopenic purpura; D22.5 Melanocytic nevi of trunk; L23.9 Allergic contact dermatitis, unspecified cause | CPT/HCPCS: 99214 ==

== ENCOUNTER 2024-03-03 14:06 | Oncology outpatient (recurring) (ONCR) | payer MEDICARE, SELFPAY | END 2024-03-21 23:59 | disposition home or self-care (01) | LOC: ONCMED 14:07 | PROVIDERS: PCP Family Medicine; Visit Provider Nurse Practitioner Family | DX: Z45.2 Encounter for adjustment and management of vascular access device (principal) | CPT/HCPCS: 96523 ==

== ENCOUNTER → 2024-03-26 11:20 | Outpatient (BNVA) | payer MEDICARE, SELFPAY | PROVIDERS: PCP Family Medicine; Visit Provider Nurse Practitioner Family | DX: L21.8 Other seborrheic dermatitis (principal); L23.9 Allergic contact dermatitis, unspecified cause; D69.2 Other nonthrombocytopenic purpura; D22.5 Melanocytic nevi of trunk | CPT/HCPCS: 99214 ==

== ENCOUNTER 2024-03-31 13:54 | Oncology outpatient (recurring) (ONCR) | payer MEDICARE, SELFPAY | END 2024-04-18 23:59 | disposition home or self-care (01) | LOC: ONCMED 13:54 | PROVIDERS: PCP Family Medicine; Visit Provider Nurse Practitioner Family | DX: Z45.2 Encounter for adjustment and management of vascular access device (principal) | CPT/HCPCS: 96523 ==

== ENCOUNTER 2024-04-28 14:00 | Oncology outpatient (recurring) (ONCR) | payer MEDICARE, SELFPAY ==
--- NOTE | 2024-04-25 14:00 | CTR_ITS ---
PROCEDURE INFORMATION: Exam: CT Chest Without Contrast; Diagnostic Exam date and time: 04/25/2024 1:51 PM Age: 69 years old Clinical indication: Condition or disease; Lung condition and disease; Pulmonary nodule, solitary; Primary cancer: Breast, lung; Prior surgery; Surgery date: 6+ months; Surgery type: Right mastectomy; Additional info: Lung nodule TECHNIQUE: Imaging protocol: Diagnostic computed tomography of the chest without contrast. Radiation optimization: All CT scans at this facility use at least one of these dose optimization techniques: automated exposure control; mA and/or kV adjustment per patient size (includes targeted exams where dose is matched to clinical indication); or iterative reconstruction. COMPARISON: CT chest wo con [id number] 10/17/2023 10:22 AM RADIATION DOSE METRICS: Total DLP (mGy-cm): 266 FINDINGS: Tubes, catheters and devices: There is a left chest port with the line tip appropriately positioned in the lower SVC near the cavoatrial junction. Lungs: There is severe centrilobular emphysema. There is a stable irregular branching nodule in the left upper lobe with surrounding parenchymal architectural distortion measuring 18 x 18 mm, unchanged compared to 10/17/2023 and 06/13/2023. There are suture lines in the left lung. There is asymmetric pleuroparenchymal scarring in the left apex. There is a noncalcified pulmonary nodule in the right lower lobe visible on series 4, image 53 measuring 4 mm is stable since 06/13/2023. There is a 13 x 10 mm ground-glass nodule in the right lower lobe, morphologically similar but increasingly conspicuous compared to 10/17/2023 and 06/13/2023. There is mild volume loss in the left hemithorax and leftward mediastinal displacement. Pleural spaces: There is no pleural effusion or pneumothorax. Heart: Heart size is normal. There is no pericardial effusion. Coronary arteries: There is moderate coronary artery calcification. Lymph nodes: There is no mediastinal or hilar lymphadenopathy. Vasculature: There is moderate aortic atherosclerotic disease. Intraperitoneal space: Visible structures in the upper abdomen are unremarkable. Bones/joints: Bones are unremarkable. Soft tissues: Right mastectomy. CT/CT chest wo con [id number] IMPRESSION: 1. Stable size of increasingly dense subsolid nodule in the right lower lobe since 06/13/2023. Possible metastasis. Fleischner Society follow up recommendations for incidental nodules are not indicated. Follow up per the patient's medical condition. 2. Stable branching nodule with parenchymal architectural distortion in the left apex since 06/13/2023. Probable chronic scarring. 3. Stable 4 mm solid right lower lobe pulmonary nodule. 4. Severe centrilobular emphysema. 5. Incidental findings above.
== END 2024-05-19 23:59 | disposition home or self-care (01) ==
PROVIDERS: PCP Family Medicine; Visit Provider Nurse Practitioner Family
DX: Z53.9 Procedure and treatment not carried out, unspecified reason; Z45.2 Encounter for adjustment and management of vascular access device
CPT/HCPCS: 71250; 96523

== ENCOUNTER 2024-06-17 08:09 | Oncology outpatient (recurring) (ONCR) | payer MEDICARE, SELFPAY ==
[2024-05-26 12:55] LABS: Basophils # 0.1 10^3/uL (0.0-0.1); Basophils % 1.1 %; Eosinophils # 0.2 10^3/uL (0.0-0.8); Eosinophils % 2.7 %; Hematocrit 39.7 % (36-47); Lymphocytes # 2.2 10^3/uL (0.8-4.8); Mean Corpuscular HGB Conc 33.2 g/dL (30-55); Mean Corpuscular Hemoglobin 31.7 pg (27-33); Mean Corpuscular Volume 95.4 fl (85-98); Mean Platelet Volume 10.3 fL (7.4-10.4); Monocytes # 0.5 10^3/uL (0.2-0.9); Monocytes % 6.9 %; Neutrophils % 57.6 %; Nucleated Red Blood Cells % 0 %; Platelet Count 149 10^3/cmm (157-399); Red Blood Count 4.16 10^6/uL (3.85-5.65); Red Cell Distribution Width 13.1 % (12.1-15.1); White Blood Count 6.96 10^3/uL (3.29-11.43)
[2024-05-26 13:20] LABS: Alanine Aminotransferase 12 U/L (0-33); Alkaline Phosphatase 54 U/L (35-105); Anion Gap 13.1 (5-19); Aspartate Amino Transferase 15 U/L (0-32); Blood Urea Nitrogen 9 mg/dL (8-23); CA 15-3 22.1 U/mL (0-25); Calcium 9.2 mg/dL (8.5-10.5); Carbon Dioxide 24 mmol/L (22-29); Chloride 104 mmol/L (98-107); Globulin 2.8 g/dL (1.3-4.6); Glomerular Filtration Rate 71.1 mL/min (90-130); Glucose 149 mg/dL (65-115); Osmolality Calculated 285 mOsm/kg (285-295); Potassium 4.1 mmol/L (3.5-5.1); Sodium 137 mmol/L (136-145); Total Bilirubin 0.4 mg/dL (0.15-1.2); Total Protein 6.8 g/dL (6.6-8.7)
[2024-05-27 08:04] LABS: CA 27.29 29 U/mL (<38)
--- NOTE | 2024-06-06 09:00 | PETR_ITS ---
PROCEDURE INFORMATION: Exam: PET/CT Skull Base to Mid-thigh Exam date and time: 06/06/2024 9:54 AM Age: 69 years old Clinical indication: Condition or disease; Primary cancer: Breast caner; Condition/disease: Breast cancer; Prior surgery; Surgery date: 6+ months; Surgery type: Right mastectomy; Additional info: Malignant neoplasm of overliapping sites of R breast LABS AND CLINICAL REPORTS: Glucose: 107 mg/dl Treatment strategy for malignancy (PET staging): Restaging (PS) TECHNIQUE: Imaging protocol: Following at least four-hour fasting and following the injection of radiopharmaceutical, low dose CT images were obtained. Then, PET images were obtained. Attenuation corrected images were constructed using the CT scan. Fused images of PET and CT were reviewed. The standardized uptake values (SUV) reported below are maximum values within a region of interest, expressed in gm/ml. Exam includes orbital meatal line to mid-thigh. SUV normalization method: BodyWeight Radiopharmaceutical: 11.16 mCi F-18 FDG (Fluorodeoxyglucose), IV. Time of imaging post radiopharmaceutical administration: 49 minutes Injection site: right ac COMPARISON: 1. CT chest wo con [id number] 10/17/2023 10:[address] lung screening [id number] 06/13/2023 8:[address] chest wo con [id number] 04/25/2024 1:51 PM 4. PT PET Scan 09/04/2020 7:36 AM FINDINGS: Brain: Visualized brain has normal physiologic uptake. Pharynx: No abnormal uptake. Larynx: No abnormal uptake. Lungs, pleura and trachea: Emphysematous change throughout the lungs. Intervally stable subsolid right lower lobe nodule measuring 1.3 cm on axial image 107 showing SUV max 1.8. Again, this has progressively increased since May 2023, not definitely visualized in August 2020. Solid non FDG avid 4 mm right lower lobe nodule on axial image 134 stable from August 2020 in keeping with benignity. Stable left lung postsurgical changes. Stable CT appearance of [id number]-[id number]-right upper lung pleural-parenchymal scarring with low-level FDG uptake that is likely inflammatory. Heart: Normal physiologic uptake. Coronary arteries: Moderate coronary artery calcification. Mediastinal space: No abnormal uptake. Liver: No abnormal uptake. Gallbladder and biliary ducts: No abnormal uptake. Prior cholecystectomy. Pancreas: No abnormal uptake. Spleen: No abnormal uptake. Adrenal glands: No abnormal uptake. Kidneys and ureters: Normal physiologic uptake. Redemonstrated absence of kidney at the left renal fossa with kidney at the right lower abdomen/pelvis as well as normal placement of right kidney in right renal fossa. Stomach and bowel: No abnormal uptake. Colonic diverticulosis without findings of diverticulitis. Vasculature: No abnormal uptake. Heavy systemic atherosclerotic calcification without aortic aneurysm. Lymph nodes: No abnormal uptake. No lymphadenopathy in the head, neck, chest, abdomen, pelvis, and extremities. Skeleton: Degenerative changes along the spine. Soft tissues: Prior right mastectomy. Right chest wall and axillary surgical clips. FDG uptake along bilateral neck musculature without underlying CT abnormality is likely physiologic activation or strain. Mild anterior right shoulder FDG uptake is likely benign, possibly inflammatory. METRICS: Mediastinal blood pool: SUV mean 2.1 Liver uptake: SUV mean 2.4 PET/PET skull to thigh SUBS [id number] IMPRESSION: 1. Intervally stable subsolid 1.3 cm right lower lobe nodule with very low-level FDG uptake, progressively increased from May 2023, not present in August 2020. Suspicious for primary lung malignancy such as adenocarcinoma, metastasis thought less likely but not entirely excluded. 2. Stable CT appearance of wvpf-[id number]-wgsq-right upper lung pleural-parenchymal scarring with low-level FDG uptake that is likely chronic inflammatory. 3. Additional chronic and incidental findings as above, to include atherosclerosis and colonic diverticulosis as well as right lower abdominopelvic kidney (empty left renal fossa).
== END 2024-06-18 23:59 | disposition home or self-care (01) ==
PROVIDERS: Nurse Practitioner Family; PCP Family Medicine; Visit Provider Internal Medicine Medical Oncology
DX: Z08 Encounter for follow-up examination after completed treatment for malignant neoplasm (principal); Z85.118 Personal history of other malignant neoplasm of bronchus and lung; Z85.3 Personal history of malignant neoplasm of breast; R03.0 Elevated blood-pressure reading, without diagnosis of hypertension; J06.9 Acute upper respiratory infection, unspecified; Z95.828 Presence of other vascular implants and grafts; Z79.52 Long term (current) use of systemic steroids; Z92.21 Personal history of antineoplastic chemotherapy
CPT/HCPCS: 36591; 78815; 80053; 85025; 86300; 99214; A9552

== ENCOUNTER 2024-06-23 12:32 | Oncology outpatient (recurring) (ONCR) | payer MEDICARE, SELFPAY | END 2024-07-19 23:59 | disposition home or self-care (01) | LOC: ONCMED 12:33 | PROVIDERS: PCP Family Medicine; Visit Provider Internal Medicine Medical Oncology | DX: Z45.2 Encounter for adjustment and management of vascular access device (principal) | CPT/HCPCS: 96523 ==

== ENCOUNTER → 2024-06-24 12:19 | Outpatient (BNVA) | payer MEDICARE, SELFPAY | PROVIDERS: PCP Family Medicine | DX: R21 Rash and other nonspecific skin eruption (principal) | CPT/HCPCS: 87070 ==

== ENCOUNTER → 2024-06-30 10:17 | Outpatient (BNVA) | payer MEDICARE, SELFPAY | PROVIDERS: PCP Family Medicine; Visit Provider Nurse Practitioner Family | DX: L27.0 Generalized skin eruption due to drugs and medicaments taken internally (principal) | CPT/HCPCS: 99213 ==

== ENCOUNTER → 2024-07-21 09:32 | Outpatient (BNVA) | payer MEDICARE, SELFPAY | PROVIDERS: PCP Family Medicine; Visit Provider Nurse Practitioner Family | DX: L27.0 Generalized skin eruption due to drugs and medicaments taken internally (principal) | CPT/HCPCS: 99212 ==

== ENCOUNTER 2024-08-11 11:19 | Oncology outpatient (recurring) (ONCR) | payer MEDICARE, SELFPAY | END 2024-08-18 23:59 | disposition home or self-care (01) | LOC: ONCMED 11:19 | PROVIDERS: PCP Family Medicine; Visit Provider Internal Medicine Medical Oncology | DX: Z45.2 Encounter for adjustment and management of vascular access device (principal); Z95.828 Presence of other vascular implants and grafts | CPT/HCPCS: 96523 ==

== ENCOUNTER 2024-09-16 11:38 | Oncology outpatient (recurring) (ONCR) | payer MEDICARE, SELFPAY ==
--- NOTE | 2024-09-09 12:00 | CT_ITS ---
WS: [id number] CT chest w con* [id number] HISTORY: lung nodule TECHNIQUE: Axial imaging performed through the thorax. Coronal and sagittal reformats are submitted. All CT scans at [facility] use at least one of these dose optimization techniques: automated exposure control; mA and/or kV adjustment per patient size (includes targeted exams where dose is matched to clinical indication); or iterative reconstruction. CONTRAST: Omnipaque 350; 100 mL IV. DLP: 247.09 mGy.cm COMPARISON: 04/25/2024, 09/02/2023, 06/13/2023, PET/CT 06/06/2024 Lungs and central airway: Hyperinflated lungs. Postsurgical changes and volume loss LEFT upper lung field are stable. Mild volume loss in the LEFT lung with focal scarring towards the apex. No new mass or pulmonary nodule on the LEFT. Mild apical scarring on the RIGHT. Subsolid mass is reidentified in the RIGHT lower lobe measuring 13 x 10 mm and is similar in size to the most recent examination. This subsolid nodule has continued to increase in size since 10/17/2023. 4 mm noncalcified nodule is stable in the RIGHT lower lobe, image 50 series 4. Pleura: Normal. No pleural effusion. Heart and pericardium: Normal size heart with no pericardial effusion. Mediastinum and son: No mediastinum or hilar adenopathy. Vessels: Mild atherosclerosis aorta. Normal size pulmonary artery. Chest wall and lower neck: LEFT subclavian Mediport. RIGHT mastectomy. Upper abdomen: LEFT kidney is not identified. May be absent. Prior cholecystectomy. No adrenal mass. Osseous structures: No destructive process. CT/CT chest w con* [id number] IMPRESSION: 1. No interval increase in size of the subsolid nodule in the RIGHT lower lobe measuring 13 x 10 mm. Subsolid nodule has slowly increased in size since 2023 and low-level positivity on PET scan. Suspicious for primary lung neoplasm . 2. No mediastinal or hilar adenopathy. 3. Stable postsurgical scarring at the LEFT lung apex. 4. Prior RIGHT mastectomy. 5. Stable 4 mm solid nodule RIGHT lower lobe.
[2024-09-09 12:21] LABS: Blood Urea Nitrogen 9 mg/dL (8-23)
[2024-09-09] MEDS: iohexol 350 mg/mL 500 mL Btl (per mL) IV (12:30)
[2024-09-16 11:58] LABS: Hematocrit 39.5 % (36-47); Hemoglobin 13.60 g/dL (11.27-16.99); Mean Corpuscular HGB Conc 34.4 g/dL (30-55); Mean Corpuscular Hemoglobin 32.9 pg (27-33); Mean Corpuscular Volume 95.4 fl (85-98); Nucleated Red Blood Cells % 0 %; Platelet Count 168 10^3/cmm (157-399); Red Blood Count 4.14 10^6/uL (3.85-5.65); White Blood Count 6.73 10^3/uL (3.29-11.43)
[2024-09-16 12:29] LABS: Alanine Aminotransferase 10 U/L (0-33); Albumin Level 4.0 g/dL (3.5-5.2); Alkaline Phosphatase 46 U/L (35-105); Anion Gap 17.2 (5-19); Aspartate Amino Transferase 14 U/L (0-32); Blood Urea Nitrogen 9 mg/dL (8-23); CA 15-3 23.9 U/mL (0-25); Calcium 9.2 mg/dL (8.5-10.5); Carbon Dioxide 22 mmol/L (22-29); Chloride 99 mmol/L (98-107); Creatinine Clr Calc Pharmacy 54.8682; Globulin 2.8 g/dL (1.3-4.6); Glucose 84 mg/dL (65-115); Osmolality Calculated 276 mOsm/kg (285-295); Potassium 4.2 mmol/L (3.5-5.1); Sodium 134 mmol/L (136-145); Total Protein 6.8 g/dL (6.6-8.7)
[2024-09-17 07:11] LABS: CA 27.29 33 U/mL (<38)
== END 2024-09-18 23:59 | disposition home or self-care (01) ==
PROVIDERS: PCP Family Medicine; Visit Provider Internal Medicine Medical Oncology
DX: C50.811 Malignant neoplasm of overlapping sites of right female breast; C34.12 Malignant neoplasm of upper lobe, left bronchus or lung; Z17.1 Estrogen receptor negative status [ER-]; R03.0 Elevated blood-pressure reading, without diagnosis of hypertension; J06.9 Acute upper respiratory infection, unspecified; Z92.3 Personal history of irradiation; Z95.828 Presence of other vascular implants and grafts; Z90.11 Acquired absence of right breast and nipple; Z92.21 Personal history of antineoplastic chemotherapy; Z98.890 Other specified postprocedural states; Z53.9 Procedure and treatment not carried out, unspecified reason
CPT/HCPCS: 36591; 71260; 80053; 82565; 84520; 85025; 86300; 99214

== ENCOUNTER 2024-10-21 11:36 | Oncology outpatient (recurring) (ONCR) | payer MEDICARE, SELFPAY | END 2024-11-18 23:59 | disposition home or self-care (01) | PROVIDERS: PCP Family Medicine; Visit Provider Internal Medicine Medical Oncology | DX: Z45.2 Encounter for adjustment and management of vascular access device (principal); Z95.828 Presence of other vascular implants and grafts | CPT/HCPCS: 96523 ==

== ENCOUNTER 2024-12-16 11:15 | Oncology outpatient (recurring) (ONCR) | payer MEDICARE, SELFPAY ==
--- NOTE | 2024-12-09 12:30 | CTR_ITS ---
PROCEDURE INFORMATION: Exam: CT Chest With Contrast; Diagnostic Exam date and time: 12/09/2024 12:42 PM Age: 69 years old Clinical indication: Condition or disease; Other: Breast cancer; Prior surgery; Surgery date: 6+ months; Surgery type: --rt masectomy, left lung, gb, hyst; Additional info: Breast cancer right, TECHNIQUE: Imaging protocol: Diagnostic computed tomography of the chest with contrast. Radiation optimization: All CT scans at this facility use at least one of these dose optimization techniques: automated exposure control; mA and/or kV adjustment per patient size (includes targeted exams where dose is matched to clinical indication); or iterative reconstruction. Contrast material: OMNI 350; Contrast volume: 100 ml; Contrast route: INTRAVENOUS (IV); COMPARISON: CT chest w con* [id number] 09/09/2024 12:25 PM RADIATION DOSE METRICS: Total DLP (mGy-cm): 488.12 FINDINGS: Tubes, catheters and devices: Left infusion port is in satisfactory location, its tip in the distal SVC. Lungs: Stable size and appearance of subsolid right lower lobe pulmonary nodule measuring up to 1.3 cm. Additional stable 4 mm right lower lobe pulmonary nodule. No new or enlarging nodules demonstrated. Moderate emphysematous changes. Similar postsurgical changes in the left lung apex with [id number]-[id number]-right apical pleuroparenchymal scarring. Pleural spaces: No pneumothorax or pleural effusion. Heart: No cardiomegaly. No pericardial effusion. Coronary arteries: Moderate atherosclerotic calcification of the coronary arteries. Lymph nodes: No pathologically enlarged lymph nodes demonstrated. No axillary lymphadenopathy. Vasculature: No central pulmonary emboli seen. No aneurysm or dissection in the visualized aorta. The visualized aorta and vasculature demonstrates moderate atherosclerotic calcification. Bones/joints: The thoracic spine demonstrates mild to moderate degenerative changes at multiple levels. There is no acute osseous abnormality. Soft tissues: Prior right mastectomy. COMMENTS: The presence of pulmonary emphysema on CT is an independent risk factor for lung cancer. In the absence of a history or active diagnosis of lung cancer, it is recommended that this patient with emphysema be evaluated for enrollment in a low dose CT lung cancer screening program. PROCEDURE INFORMATION: Exam: CT Abdomen And Pelvis With Contrast Exam date and time: 12/09/2024 12:42 PM Age: 69 years old Clinical indication: Condition or disease; Other: Breast cancer; Prior surgery; Surgery date: 6+ months; Surgery type: --rt masectomy, left lung, gb, hyst; Additional info: Breast cancer right, TECHNIQUE: Imaging protocol: Computed tomography of the abdomen and pelvis with contrast. Radiation optimization: All CT scans at this facility use at least one of these dose optimization techniques: automated exposure control; mA and/or kV adjustment per patient size (includes targeted exams where dose is matched to clinical indication); or iterative reconstruction. Contrast material: OMNI 350; Contrast volume: 100 ml; Contrast route: INTRAVENOUS (IV); COMPARISON: PT PET skull to thigh SUBS [id number] 06/06/2024 9:54 AM RADIATION DOSE METRICS: Total DLP (mGy-cm): 488.12 FINDINGS: Liver: The liver appears unremarkable. Gallbladder and biliary ducts: Prior cholecystectomy. No biliary ductal dilatation or mineralized stone seen. Pancreas: The pancreas appears unremarkable. Spleen: The spleen appears unremarkable. Adrenal glands: The adrenal glands are unremarkable. Kidneys and ureters: Unremarkable right kidney other than extrarenal pelvis. No nephrolithiasis or hydronephrosis. Additional right pelvic kidney with empty left renal fossa. No nephrolithiasis or hydronephrosis within the pelvic kidney. No focal renal lesions identified. Stomach and bowel: Moderate colonic diverticulosis. No evidence of acute diverticulitis at this time. There is no evidence of intestinal perforation or obstruction. Appendix: Appendix is not definitively seen but there is no pericecal inflammatory change. Intraperitoneal space: No free air. No significant fluid collection. Vasculature: No aneurysm or dissection in the visualized aorta. The visualized aorta and vasculature demonstrates moderate to advanced atherosclerotic calcification. Lymph nodes: No pathologically enlarged lymph nodes demonstrated. Urinary bladder: The bladder appears unremarkable. Reproductive: Prior hysterectomy. Bones/joints: Subjectively decreased bone mineral density. Moderate degenerative change in the lower lumbar spine. There is no acute osseous abnormality. Soft tissues: Similar small lipoma along the left anterior abdominal wall. CT/CT chest abdpel w/*[id number] IMPRESSION: 1. Stable size and appearance of subsolid right lower lobe pulmonary nodule measuring up to 1.3 cm. Additional stable 4 mm right lower lobe pulmonary nodule. No new or enlarging nodules demonstrated. No lymphadenopathy. 2. Moderate emphysematous changes with similar postsurgical changes in the left lung apex with [id number]-right apical pleuroparenchymal scarring.. 3. Right mastectomy. IMPRESSION: 1. No acute abnormality or specific CT findings to suggest metastatic disease in the abdomen/pelvis. 2. Multiple nonacute and incidental findings, as described.
[2024-12-09 12:44] LABS: Blood Urea Nitrogen 8 mg/dL (8-23)
[2024-12-09] MEDS: iohexol 350 mg/mL 500 mL Btl (per mL) PO (12:53)
[2024-12-09] MEDS: iohexol 350 mg/mL 500 mL Btl (per mL) IV (12:53)
[2024-12-16 11:28] LABS: Hematocrit 41.7 % (36-47); Hemoglobin 14.00 g/dL (11.27-16.99); Mean Corpuscular HGB Conc 33.6 g/dL (30-55); Mean Corpuscular Hemoglobin 32.0 pg (27-33); Mean Corpuscular Volume 95.4 fl (85-98); Nucleated Red Blood Cells % 0 %; Platelet Count 164 10^3/cmm (157-399); Red Blood Count 4.37 10^6/uL (3.85-5.65); White Blood Count 7.49 10^3/uL (3.29-11.43)
[2024-12-16 11:59] LABS: Alanine Aminotransferase 11 U/L (0-33); Albumin Level 4.1 g/dL (3.5-5.2); Alkaline Phosphatase 46 U/L (35-105); Anion Gap 17.2 (5-19); Aspartate Amino Transferase 15 U/L (0-32); Blood Urea Nitrogen 11 mg/dL (8-23); CA 15-3 27.5 U/mL (0-25); Calcium 9.4 mg/dL (8.5-10.5); Carbon Dioxide 23 mmol/L (22-29); Chloride 98 mmol/L (98-107); Creatinine Clr Calc Pharmacy 53.7517; Globulin 3.2 g/dL (1.3-4.6); Glucose 107 mg/dL (65-115); Osmolality Calculated 278 mOsm/kg (285-295); Potassium 4.2 mmol/L (3.5-5.1); Sodium 134 mmol/L (136-145); Total Protein 7.3 g/dL (6.6-8.7)
== END 2024-12-19 23:59 | disposition home or self-care (01) ==
PROVIDERS: PCP Family Medicine; Visit Provider Internal Medicine Medical Oncology
DX: Z08 Encounter for follow-up examination after completed treatment for malignant neoplasm; Z85.3 Personal history of malignant neoplasm of breast; Z85.118 Personal history of other malignant neoplasm of bronchus and lung; F17.210 Nicotine dependence, cigarettes, uncomplicated; R03.0 Elevated blood-pressure reading, without diagnosis of hypertension; J06.9 Acute upper respiratory infection, unspecified; Z92.3 Personal history of irradiation; Z90.11 Acquired absence of right breast and nipple; Z95.828 Presence of other vascular implants and grafts; Z92.21 Personal history of antineoplastic chemotherapy; Z90.2 Acquired absence of lung [part of]; Z71.6 Tobacco abuse counseling; Z53.9 Procedure and treatment not carried out, unspecified reason
CPT/HCPCS: 36591; 71260; 74177; 80053; 82565; 84520; 85025; 86300; 96523; 99214

== ENCOUNTER 2025-01-27 12:44 | Oncology outpatient (recurring) (ONCR) | payer MEDICARE, SELFPAY | END 2025-02-18 23:59 | disposition home or self-care (01) | PROVIDERS: PCP Family Medicine; Visit Provider Internal Medicine Medical Oncology | DX: Z45.2 Encounter for adjustment and management of vascular access device (principal); Z95.828 Presence of other vascular implants and grafts | CPT/HCPCS: 96523 ==

== ENCOUNTER 2025-01-28 10:52 | Outpatient (CLI) | payer MEDICARE, SELFPAY ==
--- NOTE | 2025-01-28 11:00 | MM_ITS ---
WS: [id number] BILATERAL SCREENING DIGITAL TOMOSYNTHESIS MAMMOGRAM WITH CAD HISTORY: hx of breast ca COMPARISON: 12/25/2023, 12/04/2022, 09/23/2020 Bilateral CC and MLO views with tomosynthesis and synthetic mammography submitted. Computer aided detection analyzed. Breast composition: The breasts are heterogeneously dense, which may obscure small masses. No suspicious masses, microcalcifications or architectural distortion. There are a few benign appearing calcifications. Arterial calcifications also present. MM/MM diag LT tomosynthesis [id number] IMPRESSION: BI-RADS: 2 - Benign FOLLOW UP: 1 Year Follow-up
== END 2025-01-28 10:53 | disposition home or self-care (01) ==
LOC: RAD 10:53
PROVIDERS: PCP Family Medicine; Visit Provider Family Medicine
DX: C50.911 Malignant neoplasm of unspecified site of right female breast (principal); R92.333 Mammographic heterogeneous density, bilateral breasts; R92.1 Mammographic calcification found on diagnostic imaging of breast
CPT/HCPCS: 77061; 77063